=== PATIENT | female | born 1955 | race Two or more races ===

== ENCOUNTER 2025-10-09 20:48 | Inpatient (IN) | payer MEDICARE, MEDICAID, SELFPAY ==
--- NOTE | 2025-10-09 20:52 | EDNOTE_ITS ---
ED Weakness RME/HPI General Chief complaint: Weakness Stated complaint: WEAKNESS Time Seen by Provider: 10/09/25 21:03 Arrival date/time: 10/09/25 20:48 RME / HPI RME / HPI Narrative: See MDM for Dr. See's HPI documentation. Related Data Home Medications ?Medication ?Instructions ?Recorded ?Confirmed Unobtainable 08/14/18 08/14/18 Allergies Allergy/AdvReac Type Severity Reaction Status Date / Time No Known Allergies Allergy Verified 10/09/25 20:54 Review of Systems Review of Systems Systems Reviewed: All systems reviewed, normal except as documented ED Exam Narrative Physical exam: See MDM for Dr. See's physical exam documentation. Course Course Course Narrative: CXR is ordered for determining the etiology of weakness. Quality Measures none Orders Category Date Time Status COVID-19 Screening Questionnaire NOW Care 10/09/25 22:31 Active COVID-19 Screening Questionnaire NOW Care 10/09/25 23:18 Active Decision to Admit X1 Care 10/09/25 23:18 Completed EKG (ED ONLY) *Do not use* NOW Care 10/09/25 21:02 Completed Mckenzie [Urinary Catheter] QS Care 10/09/25 21:11 Active Saline [Insert IV] NOW Care 10/09/25 21:02 Active Straight [In and Out Catheter] X1 Care 10/09/25 21:[address] chest abdomen pelvis wo Stat Exams 10/09/25 21:[address] head/brain wo con Stat Exams 10/09/25 21:02 Completed EKG (ED Only) Stat Exams 10/09/25 21:02 Draft XR chest 1V portable Stat Exams 10/09/25 21:03 Completed Alcohol, Blood Medical Stat Lab 10/09/25 21:10 Completed Ammonia Stat Lab 10/09/25 21:10 Completed BNP [B-Type Natriuretic Peptide] Stat Lab 10/09/25 21:10 Completed Beta Hydroxybutyrate Stat Lab 10/09/25 21:10 Completed Bilirubin,Direct Stat Lab 10/09/25 21:10 Completed Blood Culture (Lab) Stat Lab 10/09/25 21:10 Received CBC Stat Lab 10/09/25 21:10 Completed CMP [Comprehensive Metabolic Panel] Stat Lab 10/09/25 21:10 Completed CRP [C-Reactive Protein] Stat Lab 10/09/25 21:10 Completed Drug Screen,Urine Stat Lab 10/09/25 21:10 Completed ESR [Sed Rate (ESR)] Stat Lab 10/09/25 21:10 Completed Free T3 Stat Lab 10/09/25 21:10 Completed Free T4 (Free Thyroxine) Stat Lab 10/09/25 21:10 Completed Hemoglobin A1C [Glycohemoglobin w (eAG)] Stat Lab 10/09/25 21:10 Completed Lactate (Lactic Acid) Stat Lab 10/09/25 21:10 Completed Lipase Stat Lab 10/09/25 21:10 Completed Magnesium Stat Lab 10/09/25 21:10 Completed Procalcitonin Stat Lab 10/09/25 21:10 Completed TSH [Thyroid Stimulating Hormone] Stat Lab 10/09/25 21:10 Completed Troponin I Stat Lab 10/09/25 21:10 Completed UA, C/S IF [Urinalysis, C/S if Indicated] Stat Lab 10/09/25 21:10 Completed Urine Culture Stat Lab 10/09/25 21:10 Received VBG [Venous Blood Gas] Stat Lab 10/09/25 21:10 Completed Fluconazole/Ns 200 mg Ivpb [Diflucan/Ns Ivpb] Med 10/09/25 21:38 Discontinued 200 mg in 100 ml IV X1 Ondansetron Inj [Zofran Inj] Med 10/09/25 21:02 Discontinued 4 mg IVP X1 ONE Ringers Lactated 1000 ml [Lactated Ringers] 1,000 ml Med 10/09/25 21:02 Discontinued IV 1,000 mls/hr cefTRIAXone/D5w 1gm IV premix [Rocephin/D5w 1gm IV Med 10/09/25 21:38 Discontinued premix] 1 gm in 50 ml IV X1 Vital Signs Vital signs: Vital Signs Temperature 97.9 F 10/09/25 21:09 Pulse Rate 56 L 10/09/25 21:09 Respiratory Rate 18 10/09/25 21:09 Blood Pressure 134/55 H 10/09/25 21:09 Pulse Oximetry (%) 95 10/09/25 21:09 Oxygen Delivery Method Room Air 10/09/25 21:09 Weakness MDM Narrative MDM Narrative:: This section includes all my notes and documentations, including HPI, PE, and ED course. Devin See MD HPI: 70-year-old female from a local prison with decreased mental status. EMS reports lethargy since yesterday and confusion for about 6 hours. No recent fall or head injury. Patient understands why she is here. She reports no headache or dizziness. No recent illness with cough or fever. No speech or visual impairment. No right-sided weakness or left-sided weakness. No chest pain or shortness of breath. No other complaints. ROS: All negative except as documented in HPI. Physical Exam: General: Lethargic and oriented X 2 (negative dates).? No acute distress.?? Eyes:? Conjunctivae and lids clear.? EOMI.? PERRL. ENT:? No nasal congestion.? Pharynx normal.? Tympanic membrane normal bilaterally.??? Neck:? Supple.? No carotid bruit.? No JVD.?? Heart: RRR. Lungs:? No respiratory distress.? Good air movement.? No rhonchi, wheezing, rales.?? Chest:? No tenderness. Abdomen:? Soft and nontender.? Normal bowel sounds.? No distension.? No rebound or guarding.?? Back:? No CVA tenderness.?? Legs:? No clubbing, cyanosis, edema.? Skin:? Warm and dry.?? Neuro:? Cranial Nerves II-XII grossly intact.? No peripheral motor deficits. Musculoskeletal:? All major joints and bones are not tender with no limited ROM.? I reviewed EMS and prison notes. I reviewed all diagnostic test results. My interpretation of the EKG is possible atrial fibrillation (54 bpm) with nonspecific ST-T changes. My interpretation of the chest x-ray is increased vascular congestion. My review of the CT head report is NAD. My review of the CT chest abdomen pelvis report is vascular congestion and cirrhosis and ascites. Blood tests remarkable for Ammonia 85, BNP 191, TSH 13.79. UA showed positive leukocyte esterase, 1347 RBC, 131 WBC, and yeast. At this point, diagnoses include: AMS Hepatic encephalopathy UTI Hypothyroidism CHF Cirrhosis Ascites Treatment here included: IVF Zofran 4 mg IV Rocephin 1 g IV Diflucan 200 mg IV Patient remained stable. I discussed the case with our hospitalist. About the presentation and exam and diagnostics and treatments here. And need of further care in the hospital. Will accept the patient. Devin See MD Patient data External records reviewed:: [facility] [place] previous records, EMS form and Prison records Clinical information provided by:: patient and EMS Social determinants that could affect healthcare access:: housing (SNF resident) Patient has the following chronic illnesses:: seizures, GERD, HTN, cirrhosis How is presenting disease/condition affected by chronic disease/condition?: uneffected by Evaluation data The following diagnostics were reviewed and interpreted by me:: lab results, radiology exam(s) and EKG tracing(s) (My interpretation of the EKG is: Possible atrial fibrillation (54 bpm) with nonspecific ST-T changes. Devin See MD) Lab and/or radiology exams considered but not ordered:: none Interpretation Summary: I reviewed all diagnostic test results. My interpretation of the EKG is possible atrial fibrillation (54 bpm) with nonspecific ST-T changes. My interpretation of the chest x-ray is increased vascular congestion. My review of the CT head report is NAD. My review of the CT chest abdomen pelvis report is vascular congestion and cirrhosis and ascites. Blood tests remarkable for Ammonia 85, BNP 191, TSH 13.79. UA showed positive leukocyte esterase, 1347 RBC, 131 WBC, and yeast. Medications / Prescriptions Medications or Prescriptions considered but not ordered:: none Medication administrations:: Medication Administration History Acetaminophen (Acetaminophen 325 Mg Tablet) 650 mg PO Q6H PRN PRN Reason: Fever >101.5 or pain 1-3 Stop: 11/08/25 23:36 Ceftriaxone Sodium/Dextrose (Rocephin/D5w 1gm Iv Premix) 1 gm in 50 mls @ 100 mls/hr IV QDAY RASHEED Stop: 10/17/25 08:59 Lactated Ringer's (Lactated Ringers) 1,000 mls @ 100 mls/hr IV .Q10H ONE Stop: 10/10/25 09:48 Last Admin: 10/10/25 00:32 Dose: 100 mls/hr Documented By: TACO Lacosamide (Lacosamide Inj 200 Mg/20 Ml Vial) 100 mg IVP BID [facility] Stop: 11/09/25 08:59 Lactulose (Lactulose Syrup 20 Gm/30 Ml Udc) 15 gm PO TID RASHEED; Protocol Stop: 11/09/25 05:59 Levetiracetam (Levetiracetam Inj 100 Mg/Ml Vial 5ml) 1,000 mg IVP Q12HR [facility] Stop: 11/09/25 08:59 Levothyroxine Sodium (Levothyroxine Sodium 100 Mcg Tablet) 100 mcg PO ACBR RASHEED Stop: 11/09/25 05:59 Midodrine (Midodrine 5 Mg Tablet) 10 mg PO TID [facility] Stop: 11/09/25 05:59 Ondansetron HCl (Ondansetron Inj 2 Mg/Ml Inj 2 Ml) 4 mg IVP Q6H PRN; Protocol PRN Reason: NAUSEA OR VOMITING Stop: 11/08/25 23:36 Pantoprazole Sodium (Pantoprazole Inj 40 Mg Vial) 40 mg IVP QDAY [facility] Stop: 11/09/25 08:59 Rifaximin (Rifaximin 550 Mg Tablet) 550 mg PO BID [facility] Stop: 10/17/25 08:59 Discontinued Medications Lactated Ringer's (Lactated Ringers) 1,000 mls @ 1,000 mls/hr IV .Q1H ONE Stop: 10/09/25 22:01 Last Infusion: 10/09/25 22:50 Dose: Infused Documented By: Admin: 10/09/25 21:20 Dose: 1,000 mls/hr Documented By: KELLY Ceftriaxone Sodium/Dextrose (Rocephin/D5w 1gm Iv Premix) 1 gm in 50 mls @ 100 mls/hr IV X1 ONE Stop: 10/09/25 22:07 Last Infusion: 10/09/25 22:50 Dose: Infused Documented By: Admin: 10/09/25 22:04 Dose: 100 mls/hr Documented By: KELLY Fluconazole (Diflucan/Ns Ivpb) 200 mg in 100 mls @ 100 mls/hr IV X1 ONE Stop: 10/09/25 22:37 Last Infusion: 10/10/25 00:53 Dose: Infused Documented By: Admin: 10/09/25 23:11 Dose: 100 mls/hr Documented By: KELLY Ceftriaxone Sodium/Dextrose (Rocephin/D5w 1gm Iv Premix) 1 gm in 50 mls @ 100 mls/hr IV QDAY [facility] Stop: 10/16/25 23:42 Last Admin: 10/10/25 00:03 Dose: Not Given Documented By: CB Non-Admin Reason: Cancelled by Provider Ondansetron HCl (Ondansetron Inj 2 Mg/Ml Inj 2 Ml) 4 mg IVP X1 ONE; Protocol Stop: 10/09/25 21:03 Last Admin: 10/09/25 21:20 Dose: 4 mg Documented By: KELLY Treatment here FROM ME included: IVF Zofran 4 mg IV Rocephin 1 g IV Diflucan 200 mg IV Consultations Consultation(s) initiated? (list below): Yes Consultation #1 (Physician, Specialty, Details): I discussed the case with our hospitalist. About the presentation and exam and diagnostics and treatments here. And need of further care in the hospital. Will accept the patient. Diagnosis Weakness Differential Diagnosis: acute myocardial infarction, anemia, hypoglycemia, hypothyroidism, rhabdomyolysis, sepsis and dehydration Most likely diagnosis given after review of the tests above:: AMS Hepatic encephalopathy UTI Hypothyroidism CHF Cirrhosis Ascites Admission Indicated Admission indicated?: indicated Explain why admission is indicated or not indicated:: AMS Hepatic encephalopathy UTI Hypothyroidism CHF Cirrhosis Ascites Admission Request Was there a request for admission?: Yes Admission Attestation Admission request attestation: Discussed case with Hospitalist service regarding admission. Discussed patients ED course, exam findings, labs, and radiology results. Agreed to accept the patient for admission. Disposition Plan Disposition Plan: Admit Discharge Plan Plan Patient Disposition: Admit Acute Care w/in Hospital Problem List Clinical Impression: AMS (altered mental status), UTI (urinary tract infection), Hypothyroidism, Hepatic encephalopathy, CHF (congestive heart failure), Cirrhosis, Ascites
[2025-10-09 20:54] VITALS: PULSE 57; RESP 16; O2SAT 100; BMI 25.6
--- NOTE | 2025-10-09 21:02 | EKG_ITS ---
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1955 Requested By: Devin Cash Order Number: [id number] Reading MD: Dvein Cash Measurements Intervals [place] Rate: 54 P: [place]: QRS: -55 QRSD: 158 T: 12 QT: 502 QTc: 478 Interpretive Statements ATRIAL FIBRILLATION WITH SLOW VENTRICULAR RESPONSE RIGHT BUNDLE BRANCH BLOCK [120+ ms QRS DURATION, UPRIGHT V1, 40+ ms S IN I/aVL/V4/V5/V6] LEFT ANTERIOR FASCICULAR BLOCK [QRS AXIS <= -45, QR IN I, RS IN II] MODERATE VOLTAGE CRITERIA FOR LVH, CONSIDER NORMAL VARIANT [MEETS CRITERIA IN ONE OF: R(aVL), S(V1), R(V5), R(V5/V6)+S(V1)] ANTERIOR MYOCARDIAL INFARCTION , PROBABLY RECENT [40+ ms Q WAVE AND/OR ST/T ABNORMALITY IN V3/V4] ACUTE [place] No previous ECG available for comparison /store/S0/[id number]/ecg/[id number].pdf
--- NOTE | 2025-10-09 21:02 | XR_ITS ---
Examination: CT brain head without contrast. 2-D sagittal coronal reconstructions Date and time of exam: October 09, 2025, 2148 hours INDICATIONS: Altered mental status today CTDI: vol (mGy): 45.8 DLP: (mGycm): 896 Technique: Multiple CT axial sections of the brain have been obtained, 5 mm slice thickness. Contrast has not been administered. 2-D sagittal, coronal reconstructions have been obtained Low dose protocols were performed. One or more of the following dose reduction techniques were used; automated exposure control, adjustment of the mA and/or KV according to patient size, use of iterative reconstruction technique. Findings: No significant ventricular enlargement. Intra-axial or extra-axial hemorrhage density is not seen. No mass effect or midline shift Basal cisterns are not remarkable. Fourth ventricle is midline. Cranial vault intact. 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
--- NOTE | 2025-10-09 21:03 | XR_ITS ---
EXAMINATION: AP chest single view TECHNIQUE: AP portable upright chest single view Date and time: October 09, 2025, 2117 hours INDICATIONS: Shortness of breath today. FINDINGS: Normal heart size Prominent vascular congestion No lobar pneumonia The osseous structures are intact IMPRESSION: Prominent vascular congestion, clinical correlation advised
[2025-10-09 21:09] VITALS: BP 134/55; PULSE 56; RESP 18; TEMP 36.6; O2SAT 95
[2025-10-09 21:19] LABS: Collection Type, Urine Clean Catch; Squamous Epithelial Cell,Urine 0 /hpf (0-5)
[2025-10-09] MEDS: RINGERS LACTATED 1000 ML 1,000 ML IV (21:20)
[2025-10-09] MEDS: ONDANSETRON INJ 2 MG/ML INJ 2 ML 4 MG IVP (21:20)
[2025-10-09 21:23] LABS: Base Excess, Venous -4 (-3-3); O2 Saturation, Venous 81 % (96-97); PCO2, Venous 40 mmHg (36-56); PO2, Venous 49 mmHg (15-58); pH, Venous 7.34 (7.33-7.66)
[2025-10-09 21:26] LABS: Beta Hydroxybutyrate 0.1 mmol/L (<0.6); Sed Rate (ESR) 6 mm/hr (0-30)
[2025-10-09 21:30] LABS: Basophils # (Auto) 0.0 Thou/mm3 (0.0-0.2); Basophils % (Auto) 1 % (0-2.5); Eosinophils # (Auto) 0.1 Thou/mm3 (0.0-0.5); Eosinophils % (Auto) 2 % (0-10); Hematocrit 28.7 % (36.0-46.0); Hemoglobin 9.8 g/dL (12.0-16.0); Immature Granulocytes Auto 0.01 Thou/mm3 (0.00-0.00); Lymphocytes # (Auto) 1.0 Thou/mm3 (1.0-4.8); Lymphocytes % (Auto) 30 % (10-50); Mean Corpuscular HGB Conc 34.1 g/dl (31.0-37.0); Mean Corpuscular Hemoglobin 30.2 pg (25.0-35.0); Mean Corpuscular Volume 89 fL (80-100); Monocytes # (Auto) 0.4 Thou/mm3 (0.0-0.8); Monocytes % (Auto) 10 % (0-12); Neutrophils # (Auto) 2.0 Thou/mm3 (1.8-7.7); Neutrophils % (Auto) 58 % (37-80); Nucleated Red Blood Cell # 0.00 Thou/mm3 (0.00-0.00); Nucleated Red Blood Cell % 0 /100 WBC (0); RDW Standard Deviation 67.4 fL (36.4-46.3); Red Blood Count 3.24 Miln/mm3 (4.00-5.20); White Blood Count 3.5 Thou/mm3 (3.6-11.0)
[2025-10-09 21:32] LABS: Bilirubin,Urine Negative (Negative); Blood,Urine 3+ (Negative); Budding Yeast,Urine Present; Clarity,Urine Turbid (Clear/Hazy); Glucose, Urine Negative (Negative); Ketones,Urine Negative (Negative); Leukocyte Esterase,Urine Positive (Negative); Nitrite,Urine Negative (Negative); PH,Urine 6.5 (5.0-7.0); Platelet Count 73 Thou/mm3 (140-440); Protein,Urine 1+ (Neg - Trace); RBC,Urine 1347 /hpf (0-3); Specific Gravity,Urine 1.022 (1.001-1.035); Urobilinogen,Urine Negative mg/dL (0.0-1.0); WBC,Urine 131 /hpf (0-5)
[2025-10-09 21:33] LABS: Color,Urine Lt-Orange (Lt Yel-Yel); Culture Indicated,Urine Yes; Slide Review Platelets confirmed
--- NOTE | 2025-10-09 21:34 | XR_ITS ---
Examination: CT chest, without intravenous contrast. CT abdomen, without intravenous contrast. CT pelvis, without intravenous contrast. 2-D sagittal and coronal reconstructions. 3-D reconstructions. Date and time of exam: October 09, 2025, 2149 hours INDICATIONS: Chest pain shortness of breath hematuria beginning 1 week ago CTDI vol (mgy) 9.97 DLP (MGycm) 741 Technique: Multiple CT images, 3.0 mm slice thickness, obtained chest, abdomen, pelvis, with the high-resolution 64 slice scanner.. Sagittal and coronal 2-D reconstructions are obtained. 3-D reconstructions Low dose protocols were performed. One or more of the following dose reduction techniques were used; automated exposure control, adjustment of the mA and/or KV according to patient size, use of iterative reconstruction technique. Findings: No thoracic aortic aneurysmal dilatation Main pulmonary artery segment is enlarged 42 mm Heavy calcification left main and left anterior descending and left circumflex coronary arteries Mild to moderate enlargement cardiac contour with significant vascular congestion No mediastinal lymphadenopathy COPD with multiple areas of airspace destruction including bleb like areas at the lung bases No lobar pneumonia or pulmonary edema Cirrhosis, liver nodular in contour with prominent splenomegaly Portosystemic stent No pancreatic mass Normal adrenal glands Moderate ascites No hydronephrosis Heavy abdominal aortic calcification no aneurysmal dilatation Normal appendix Colonic diverticulosis Atrophic uterus Urinary bladder contracted around a Mckenzie catheter, bladder wall thickened Severe osteopenia IMPRESSION: Significant vascular congestion Heavy calcification left main and left anterior descending left circumflex coronary arteries Pulmonary artery hypertension COPD with bleb like areas at the lung bases Cirrhosis Prominent splenomegaly Moderate ascites No renal or ureteral calculi Thickening of the bladder wall, consider cystitis, early bladder carcinoma not excluded, clinical correlation and follow-up recommended Normal appendix Colonic diverticulosis
[2025-10-09 21:40] LABS: Ammonia 85 uMol/L (11-32)
[2025-10-09 21:49] LABS: Alanine Aminotransferase 22 U/L (10-49); Albumin, Serum 2.7 gm/dL (3.4-4.8); Albumin/Globulin Ratio 0.8 (1.2-2.2); Alcohol, Blood Medical < 3.0 mg/dL (0-10.0); Alkaline Phosphatase 101 U/L (46-116); Anion Gap 7 (7-16); Aspartate Amino Transferase 47 U/L (0-34); BUN/Creatinine Ratio 13 Ratio (12-20); Bilirubin,Direct 1.0 mg/dL (0.0-0.3); Bilirubin,Total 2.1 mg/dL (0.3-1.2); Blood Urea Nitrogen 14 mg/dL (9-23); Calcium 8.5 mg/dL (8.3-10.6); Calcium (Corrected) 9.5 mg/dL (8.5-10.1); Carbon Dioxide 21.1 mMol/L (20.0-31.0); Chloride 113 mMol/L (98-107); Creatinine (Component) 1.1 mg/dL (0.6-1.3); Estimated Creatinine Clearance 42.9 mL/min (>60); Globulin 3.5 gm/dL (2.3-3.5); Glucose 127 mg/dL (74-106); Lipase 117 U/L (12-53); Magnesium 1.9 mg/dL (1.6-2.6); Osmolality,Calculated 283 (275-295); Potassium 4.5 mMol/L (3.4-5.1); Procalcitonin 0.08 ng/ml (0.0-0.49); Sodium 141 mMol/L (136-145); Thyroid Stimulating Hormone 13.79 uIU/mL (0.55-4.78); Total Protein 6.2 gm/dL (5.7-8.2); Troponin I < 0.020 ng/mL (0.0-0.045); eGFR 55 See Note
[2025-10-09 21:54] LABS: B-Type Natriuretic Peptide 191 pg/mL (0-100)
[2025-10-09 21:58] LABS: Amphetamine/Methamp Scrn,U Negative (Negative); Barbiturate Screen,Urine Negative (Negative); Benzodiazepines Screen,Urine Negative (Negative); Benzoylecgonine Screen, Ur Negative (Negative); Fentanyl Screen,Urine Negative (Negative); Opiate Screen,Urine Negative (Negative); THC Screen,Urine Negative (Negative)
[2025-10-09] MEDS: cefTRIAXone/D5w 1gm IV premix 1 GM/50 ML BAG IV (22:04)
[2025-10-09 22:07] LABS: C-Reactive Protein < 0.5 mg/dL (0.0-0.9)
[2025-10-09 23:11] LABS: Glucose Estimated Average 91 mg/dL (80-131); Hemoglobin A1C 4.8 % Hgb (4.8-6.0)
[2025-10-09] MEDS: FLUCONAZOLE/NS 200 MG IVPB 200 MG/100 ML BAG 100 MG IV (23:11)
[2025-10-09 23:21] LABS: Lactate (Lactic Acid) 2.6 mMol/L (0.4-2.0)
[2025-10-09 23:29] LABS: Free T3 0.9 pg/mL (2.3-4.2); Free T4 (Free Thyroxine) 0.50 ng/dL (0.89-1.76)
--- NOTE | 2025-10-09 23:56 | ESHP_ITS ---
Documentation for date of: 10/09/25 HPI History of Present Illness Chief complaint: Altered mental status History of present illness: This patient is a 70-year-old female with a history of iron deficiency anemia, hypertension, seizures, cirrhosis, GERD, and hypothyroidism who presented to [facility] ED from [facility] for altered mental status. The patient was admitted for management of acute encephalopathy. According to the patient, she had been feeling off for about 2 days, but this was mostly with just generalized weakness. From EMS report, the patient was noted to be less interactive and eating less at her fci, which concerned the staff at the nursing facility as she is normally much more interactive. Upon examination of the patient, the patient is only oriented to person, did not know the date/month/year, and believes that she was still at [facility]. The patient herself only feels weak and does not really know why she is in the hospital right now. The patient was able to answer all questions appropriately, albeit her response time was a bit slow. The patient does not believe that she has had any recent medication changes or any significant events that she believes could be tied to why she feels this generalized weakness. 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 ED course: Initial vitals significant for blood pressure of 134/55 and heart rate of 56. Initial labs significant for WBC 3.5, hemoglobin 9.8, platelets 73, AST 47, ALT 22, ammonia 85, and urinalysis shows 131 WBC, 1347 RBC, and leukocyte esterase positive. CT head negative for acute abnormalities, small old appearing infarct in the left cerebral hemisphere CT chest/abdomen/pelvis positive for cirrhosis, prominent hepatomegaly, moderate ascites, colonic diverticulosis and thickening of the bladder wall Past Surgical History: Patient denies Allergies (w/ Reactions): NKDA Family History: Noncontributory Alcohol Intake: Patient denies Tobacco/Vape Use: Patient denies Other Drug Use: Patient denies Recent Travel History: Patient denies Recent sick contacts: Patient denies Review of Systems Review of Systems Systems Reviewed: All systems reviewed, normal except as documented Exam Vital Signs Temp Pulse Resp BP Pulse Ox O2 Del Method 97.9 F 56 L 18 134/55 H 95 Room Air 10/09/25 21:09 10/09/25 21:09 10/09/25 21:09 10/09/25 21:09 10/09/25 21:09 10/09/25 21:09 Narrative Exam Physical Exam: General: Alert, no acute distress. Speech slow. Skin: Warm, cool, intact. Head: Normocephalic, atraumatic. Eye: Normal conjunctiva, PERRL. Throat: Oral mucosa dry. No obvious lesions in oropharynx. Cardiovascular: Regular rate and rhythm, no murmur, +S1/S2. Respiratory: Lungs are clear to auscultation, respirations unlabored, no crackles, no wheezing. Gastrointestinal: Soft, nontender, distended. No guarding or rebound tenderness. Extremities: No edema, no cyanosis, no clubbing. 2+ radial pulse bilaterally, 2+ pedal pulse bilaterally. Neuro: No focal deficits observed. Conversant, moving all extremities. No overt cerebellar signs/incoordination. Psychiatric: Cooperative, appropriate affect. Results: Labs 10/11/25 05:06 10/11/25 05:06 Labs: Short CBC 10/09/25 Range/Units 21:10 WBC 3.5 L (3.6-11.0) Thou/mm3 Hgb 9.8 L (12.0-16.0) g/dL Hct 28.7 L (36.0-46.0) % Plt Count 73 L (140-440) Thou/mm3 BMP 10/09/25 21:10 Sodium 141 Potassium 4.5 Chloride 113 H Carbon Dioxide 21.1 BUN 14 Creatinine 1.1 Glucose 127 H Calcium 8.5 Cardiac Enzymes 10/09/25 Range/Units 21:10 Troponin I < 0.020 (0.0-0.045) ng/mL Liver Function 10/09/25 Range/Units 21:10 Total Bilirubin 2.1 H (0.3-1.2) mg/dL Direct Bilirubin 1.0 H (0.0-0.3) mg/dL AST 47 H (0-34) U/L ALT 22 (10-49) U/L Alkaline Phosphatase 101 (46-116) U/L Albumin 2.7 L (3.4-4.8) gm/dL Urine 10/09/25 Range/Units 21:10 Urine Color Lt-[place] A (Lt Yel-Yel) Urine Clarity Turbid A (Clear/Hazy) Urine pH 6.5 (5.0-7.0) Ur Specific [place] 1.022 (1.001-1.035) Urine Protein 1+ A (Neg - Trace) Urine Glucose (UA) Negative (Negative) ABG Interpretation ABG results: 10/09/25 21:10 VBG pH 7.34 VBG pCO2 40 VBG pO2 49 VBG Base Excess -4 L Quality Measures Quality Measures VTE prophylaxis Advance care planning discussed with:: patient Medications Home Medications and Allergies Home Medications ?Medication ?Instructions ?Recorded ?Confirmed ?Type bisacodyl 10 mg rectal suppository 10 mg [place] QDAY PRN c onstipation 10/10/25 10/10/25 History (Dulcolax (bisacodyl)) furosemide 20 mg tablet (Lasix) 20 mg PO .COMPLEX 09/2910/10/25 History lacosamide 100 mg tablet 100 mg PO BID 10/10/2510/10 History lactulose 10 gram/15 mL oral 10 g PO BID 10/10/2509/29 History solution levetiracetam 1,000 mg tablet 1,000 mg PO BID 10/10/25 10/10/25 History (Keppra) levothyroxine 75 mcg capsule 75 mcg PO QDAY 10/10/25 1 12/11/24 History magnesium hydroxide 400 mg/5 mL 400 mg PO .COMPLEX PRN constipation 10/10/25 10/10/25 History oral suspension (Milk of Magnesia) midodrine 10 mg tablet 10 mg PO TID 10/10/25 History pantoprazole 40 mg tablet,delayed 40 mg PO QDAY 10/10/25 History release (Protonix) pramipexole 0.5 mg tablet 0.5 mg PO QDAY 10/10/2509/29 History rifaximin 550 mg tablet 550 mg PO BID 10/10/2510/10 History sodium phosphates See Rx Instructions [place] .COMP ELDON 10/10/25 10/10/25 History PRN constipation Allergies Allergy/AdvReac Type Severity Reaction Status Date / Time No Known Allergies Allergy Verified 10/09/25 20:54 Visit Medications Acetaminophen (Acetaminophen 325 Mg Tablet) 650 mg PO Q6H PRN PRN Reason: Fever >101.5 or pain 1-3 Stop: 11/08/25 23:36 Ceftriaxone Sodium/Dextrose (Rocephin/D5w 1gm Iv Premix) 1 gm in 50 mls @ 100 mls/hr IV QDAY FOR[facility]LY [facility], 1928[facility]1983 Stop: 10/17/25 08:59 Lactated Ringer's (Lactated Ringers) 1,000 mls @ 100 mls/hr IV .Q10H ONE Stop: 10/10/25 09:48 Lacosamide (Lacosamide Inj 200 Mg/20 Ml Vial) 100 mg IVP BID FOR[facility]LY [facility], 1928–1983 Stop: 11/09/25 08:59 Lactulose (Lactulose Syrup 20 Gm/30 Ml Udc) 15 gm PO TID FOR[facility]LY [facility], [facility]1983; Protocol Stop: 11/09/25 05:59 Levetiracetam (Levetiracetam Inj 100 Mg/Ml Vial 5ml) 1,000 mg IVP Q12HR FOR[facility], 1928–1983 Stop: 11/09/25 08:59 Levothyroxine Sodium (Levothyroxine Sodium 100 Mcg Tablet) 100 mcg PO ACBR FOR[facility]LY [facility], 1928[facility]1983 Stop: 11/09/25 05:59 Midodrine (Midodrine 5 Mg Tablet) 10 mg PO TID [facility], 1928[facility]1983 Stop: 11/09/25 05:59 Ondansetron HCl (Ondansetron Inj 2 Mg/Ml Inj 2 Ml) 4 mg IVP Q6H PRN; Protocol PRN Reason: NAUSEA OR VOMITING Stop: 11/08/25 23:36 Pantoprazole Sodium (Pantoprazole Inj 40 Mg Vial) 40 mg IVP QDAY [facility], [facility]1983 Stop: 11/09/25 08:59 Rifaximin (Rifaximin 550 Mg Tablet) 550 mg PO BID [facility], [facility]1983 Stop: 10/17/25 08:59 Discontinued Medications Lactated Ringer's (Lactated Ringers) 1,000 mls @ 1,000 mls/hr IV .Q1H ONE Stop: 10/09/25 22:01 Last Infusion: 10/09/25 22:50 Dose: Infused Ceftriaxone Sodium/Dextrose (Rocephin/D5w 1gm Iv Premix) 1 gm in 50 mls @ 100 mls/hr IV X1 ONE Stop: 10/09/25 22:07 Last Infusion: 10/09/25 22:50 Dose: Infused Fluconazole (Diflucan/Ns Ivpb) 200 mg in 100 mls @ 100 mls/hr IV X1 ONE Stop: 10/09/25 22:37 Last Admin: 10/09/25 23:11 Dose: 100 mls/hr Ceftriaxone Sodium/Dextrose (Rocephin/D5w 1gm Iv Premix) 1 gm in 50 mls @ 100 mls/hr IV QDAY RASHEED Stop: 10/16/25 23:42 Ondansetron HCl (Ondansetron Inj 2 Mg/Ml Inj 2 Ml) 4 mg IVP X1 ONE; Protocol Stop: 10/09/25 21:03 Last Admin: 10/09/25 21:20 Dose: 4 mg Assessment & Plan Plan This patient is a 70-year-old female with a history of iron deficiency anemia, hypertension, seizures, cirrhosis, GERD, and hypothyroidism who presented to [facility] ED from [facility] for altered mental status. The patient was admitted for management of acute encephalopathy. 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 ED with altered mental status that started about 2 days ago. Patient is normally able to interactive and was found to not be as interactive, more lethargic, and not eating as much. 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 Patient may be suffering from acute encephalopathy secondary to a urinary tract infection with possible component of hepatic encephalopathy, however the patient has been lactulose and rifaximin at her nursing facility. Diagnostic: Urinalysis positive for 131 WBC, 1347 RBC, and leukocyte esterase positive CT head 10/09 negative for acute abnormalities, small old appearing infarct in the left cerebral hemisphere CT chest/abdomen/pelvis 10/09 positive for cirrhosis, prominent hepatomegaly, moderate ascites, colonic diverticulosis and thickening of the bladder wall On admission, AST noted to be 47, ALT 22, and bilirubin 2.1 Ammonia on admission 85 Blood cultures collected 10/09, pending Urine culture collected 10/09, pending Treatment: Ceftriaxone 1 g daily (10/09?) Lactulose 15 g 3 times daily, titrate to achieve 2-3 bowel movements daily Rifaximin 550 mg twice daily Midodrine 10 mg 3 times daily, hold if SBP greater than 100 Acute hepatitis panel ordered, pending Strict ins and outs Consider paracentesis for peritoneal fluid analysis if patient condition does not improve with appropriate antibiotics #History of seizures Patient does have history of seizures for which she takes Keppra and lacosamide for. Treatment: Resumed home Keppra 1 g twice daily and lacosamide 100 mg twice daily Neurochecks every 4 hours Seizure precautions #Lactic acidosis Likely secondary to the patient's active urinary tract infection and poor clearance due to liver cirrhosis. Treatment: IV fluid resuscitation Will continue to monitor lactic acid until downtrend to within normal limits #Hypothyroidism Patient does have history of hypothyroidism for which she takes levothyroxine 75 mcg daily for management outpatient. Diagnostic: TSH on admission 13.79 with free T4 0.5 And free T3 0.9 Treatment: Started patient on levothyroxine 100 mcg ACBR Patient to follow-up outpatient #Pancytopenia #Iron deficiency anemia Patient noted to have hemoglobin of 9.8, WBC of 3.5, and platelet of 73 on admission. Possibly secondary to her Keppra and lacosamide as that has been shown to be associated with pancytopenia. Treatment: Patient to follow-up outpatient #Colonic diverticulosis As noted on CT chest/abdomen/pelvis 10/09 #History of GERD Resumed home Protonix 40 mg daily DVT Prophylaxis: SCDs GI Prophylaxis: Protonix Bowel: Lactulose Diet: Low sodium Mckenzie: Yes Lines: PIV Antibiotics: Ceftriaxone Code Status: DNR Reason for Hospitalization: Acute encephalopathy Other Barriers to Discharge: UTI Patient plan of care was discussed with attending physician Dr. Ankit Lim, PGY1 Attending Provider Attestation/Addendum After examination of the patient and review of the clinical data I feel that this patient needs admission to the hospital for further treatment/evaluation. Plan of care discussed with patient and is in agreement. I Griffin Pham MD, attest that I was physically present for jaffe portions of evaluation, and examined patient, labs and imagings and plan of care were discussed with IM residents team, and I agree with the findings and plans documented above.
[2025-10-10] VITALS (12 sets, daily range): BP systolic 100–134; BP diastolic 43–57; PULSE 53–89; RESP 16–99; TEMP 36.2–36.7; O2SAT 98–100; BMI 24.7
[2025-10-10 00:15] LABS: Reflex Lactate? Y
[2025-10-10] MEDS: RINGERS LACTATED 1000 ML 1,000 ML 100 ML IV (00:32)
[2025-10-10 01:20] LABS: Lactate (Lactic Acid) 2.7 mMol/L (0.4-2.0)
[2025-10-10 04:15] LABS: Lactate (Lactic Acid) 1.5 mMol/L (0.4-2.0)
[2025-10-10 04:19] LABS: Reflex Lactate? Y
[2025-10-10 04:39] LABS: Lactic Acid, 3 HR 1.6 mMol/L (0.4-2.0)
[2025-10-10 04:49] LABS: Basophils # (Auto) 0.0 Thou/mm3 (0.0-0.2); Basophils % (Auto) 1 % (0-2.5); Eosinophils # (Auto) 0.1 Thou/mm3 (0.0-0.5); Eosinophils % (Auto) 2 % (0-10); Hematocrit 26.6 % (36.0-46.0); Hemoglobin 8.9 g/dL (12.0-16.0); Immature Granulocytes Auto 0.00 Thou/mm3 (0.00-0.00); Lymphocytes # (Auto) 1.0 Thou/mm3 (1.0-4.8); Lymphocytes % (Auto) 31 % (10-50); Mean Corpuscular HGB Conc 33.5 g/dl (31.0-37.0); Mean Corpuscular Hemoglobin 30.4 pg (25.0-35.0); Mean Corpuscular Volume 91 fL (80-100); Monocytes # (Auto) 0.3 Thou/mm3 (0.0-0.8); Monocytes % (Auto) 9 % (0-12); Neutrophils # (Auto) 1.8 Thou/mm3 (1.8-7.7); Neutrophils % (Auto) 58 % (37-80); Nucleated Red Blood Cell # 0.00 Thou/mm3 (0.00-0.00); Nucleated Red Blood Cell % 0 /100 WBC (0); Platelet Count 64 Thou/mm3 (140-440); RDW Standard Deviation 70.0 fL (36.4-46.3); Red Blood Count 2.93 Miln/mm3 (4.00-5.20); White Blood Count 3.2 Thou/mm3 (3.6-11.0)
[2025-10-10 05:03] LABS: INR 1.2 (0.9-1.3); Partial Thromboplastin Time 23.4 Seconds (22.0-36.0); Prothrombin Time 12.4 Seconds (9.0-12.2)
[2025-10-10 05:31] LABS: Slide Review Platelets confirmed
[2025-10-10] MEDS: LEVOTHYROXINE SODIUM 100 MCG TABLET PO (05:37)
[2025-10-10] MEDS: LACTULOSE SYRUP 20 GM/30 ML UDC 15 GM PO ×3 (05:39→21:32)
[2025-10-10 05:44] LABS: Alanine Aminotransferase 20 U/L (10-49); Albumin, Serum 2.6 gm/dL (3.4-4.8); Albumin/Globulin Ratio 0.8 (1.2-2.2); Alkaline Phosphatase 101 U/L (46-116); Anion Gap 8 (7-16); Aspartate Amino Transferase 41 U/L (0-34); BUN/Creatinine Ratio 14 Ratio (12-20); Bilirubin,Total 1.5 mg/dL (0.3-1.2); Blood Urea Nitrogen 15 mg/dL (9-23); Calcium 8.2 mg/dL (8.3-10.6); Calcium (Corrected) 9.3 mg/dL (8.5-10.1); Carbon Dioxide 19.3 mMol/L (20.0-31.0); Chloride 115 mMol/L (98-107); Creatinine (Component) 1.1 mg/dL (0.6-1.3); Estimated Creatinine Clearance 42.3 mL/min (>60); Globulin 3.2 gm/dL (2.3-3.5); Glucose 116 mg/dL (74-106); Magnesium 1.8 mg/dL (1.6-2.6); Osmolality,Calculated 284 (275-295); Phosphorous 2.8 mg/dL (2.4-5.1); Potassium 4.4 mMol/L (3.4-5.1); Sodium 142 mMol/L (136-145); Total Protein 5.8 gm/dL (5.7-8.2); eGFR 55 See Note
[2025-10-10] MEDS: LACOSAMIDE INJ 200 MG/20 ML VIAL 100 MG IVP ×2 (09:47→20:48)
[2025-10-10] MEDS: levETIRAcetam INJ 100 MG/ML VIAL 5ML 1000 MG IVP ×2 (09:47→20:53)
[2025-10-10] MEDS: cefTRIAXone/D5w 1gm IV premix 1 GM/50 ML BAG IV (09:48)
--- NOTE | 2025-10-10 12:33 | PD.HHPROG ---
Documentation for date of: 10/10/25 Subjective - Hospitalist Subjective Interval history: Patient is a 70 years old female with past medical history of iron deficiency anemia, hypertension, seizure, cirrhosis, GERD, hypothyroidism who was admitted overnight for management of acute hepatic encephalopathy. At bedside this morning, patient appears more alert, oriented and able to answer questions appropriately. Denies any new complaints. Vital signs are stable. Lab results show hemoglobin of 8.9 from 9.8 yesterday. Chemistry panel remained stable. Bilirubin is downtrending. However, patient noted to have bloody urine in her bag, CT chest/abdomen/pelvis done yesterday shows thickening of bladder wall, early bladder carcinoma not excluded. We will obtain urology consult. Patient had 2 bowel movement, continues to be on lactulose. Noted murmur on exam, we will obtain echocardiography. Review of Systems Review of Systems Systems Reviewed: All systems reviewed, normal except as documented Exam Vital Signs Temp Pulse Resp BP Pulse Ox O2 Del Method 97.2 F 55 L 16 117/55 L 99 Room Air 10/10/25 15:45 10/10/25 21:29 10/10/25 15:45 10/10/25 21:29 10/10/25 15:45 10/10/25 15:45 Narrative GENERAL: Well built female, in no acute distress, laying comfortably on bed HEENT: Normocephalic, atraumatic, extraocular movements intact, pupils equal and reactive to light NECK: Supple, no JVD or bruits. CARDIOVASULAR: RRR, S1 and S2 heard, murmur heard all over the precordium LUNGS/CHEST: Clear to auscultation bilaterally. No rails, rhonchi, or wheezing. ABDOMEN: Soft, nontender, with normal bowel sounds. No rebound, rigidity, or guarding. EXTREMITIES: No edema, clubbing or cyanosis. No joint deformity. Able to move all limbs. SKIN: Warm and dry without rashes. NEURO: Alert, awake and oriented Cranial nerves: II through XII grossly intact. normal speech, able to answer questions and follow commands appropriately, strength and sensation normal and equal bilaterally, no focal neurological deficits PSYCHIATRIC: Normal mood and affect. Objective - Hospitalist Labs Diagram: 10/10/25 15:59 10/10/25 04:03 Labs: Laboratory Results - last 24 hr 10/09/25 10/10/2510/10/25 21:10 01:09 04:03 WBC 3.2 L RBC 2.93 L Hgb 8.9 L Hct 26.6 L MCV 91 MCH 30.4 MCHC 33.5 RDW Std Deviation 70.0 H Plt Count 64 L Neut % (Auto) 58 Lymph % (Auto) 31 [place] % (Auto) 9 Eos % (Auto) 2 Baso % (Auto) 1 Neut # (Auto) 1.8 Lymph # (Auto) 1.0 [place] # (Auto) 0.3 Eos # (Auto) 0.1 Baso # (Auto) 0.0 Immature Gran # (Auto) 0.00 Absolute Nucleated RBC 0.00 Immature Gran % 0 Nucleated RBC % 0 PT 12.4 H INR 1.2 APTT 23.4 Sodium 141 142 Potassium 4.5 4.4 Chloride 113 H 115 H Carbon Dioxide 21.1 19.3 L Anion Gap 7 8 BUN 14 15 Creatinine 1.1 1.1 Estim Creat Clear Calc 42.9 L 42.3 L eGFR 55 L 55 L BUN/Creatinine Ratio 13 14 Glucose [address] Glu mg/dL 91 Hemoglobin A1c 4.8 Calculated Osmolality 283 284 Lactic Acid 2.6 H 2.7 H Calcium 8.5 8.2 L Corrected Calcium 9.5 9.3 Phosphorus 2.8 Magnesium 1.9 1.8 Total Bilirubin 2.1 H 1.5 H D Direct Bilirubin 1.0 H AST 47 H 41 H ALT 22 20 Alkaline Phosphatase 101 101 Ammonia 85 H* Troponin I < 0.020 C-Reactive Prot, Quant < 0.5 B-Natriuretic Peptide 191 H Total Protein 6.2 5.8 Albumin 2.7 L 2.6 L Globulin 3.5 3.2 Albumin/Globulin Ratio 0.8 L 0.8 L Lipase 117 H Procalcitonin 0.08 TSH 13.79 H Free T4 0.50 L Free T3 pg/dL 0.9 L Ur Collection Type Clean Catch Urine Color Lt-[place] A Urine Clarity Turbid A Urine pH 6.5 Ur Specific [place] 1.022 Urine Protein 1+ A Urine Glucose (UA) Negative Urine Ketones Negative Urine Blood 3+ A Urine Nitrite Negative Urine Bilirubin Negative Urine Urobilinogen (Auto) Negative Ur Leukocyte Esterase Positive Urine RBC 1347 H Urine WBC 131 H Ur Squamous Epith Cells 0 Urine Bacteria None Urine Yeast (Budding) Present A Ur Culture Indicated? Yes Urine Opiates Screen Negative Urine Fentanyl Screen Negative Ur Barbiturates Screen Negative U Amphetamin/Meth Scrn Negative U Benzodiazepines Scrn Negative U Cocaine Metab Screen Negative U Marijuana (THC) Screen Negative Ethyl Alcohol < 3.0 Misc Test Result Platelets confirmed Platelets confirmed 10/10/25 10/10/25 10/10/25 04:07 04:07 15:59 WBC RBC Hgb 9.0 L Hct 26.5 L MCV MCH MCHC RDW Std Deviation Plt Count Neut % (Auto) Lymph % (Auto) [place] % (Auto) Eos % (Auto) Baso % (Auto) Neut # (Auto) Lymph # (Auto) [place] # (Auto) Eos # (Auto) Baso # (Auto) Immature Gran # (Auto) Absolute Nucleated RBC Immature Gran % Nucleated RBC % PT INR APTT Sodium Potassium Chloride Carbon Dioxide Anion Gap BUN Creatinine Estim Creat Clear Calc eGFR BUN/Creatinine Ratio Glucose Estimated Ave Glu mg/dL Hemoglobin A1c Calculated Osmolality Lactic Acid 1.5 1.6 Calcium Corrected Calcium Phosphorus Magnesium Total Bilirubin Direct Bilirubin AST ALT Alkaline Phosphatase Ammonia Troponin I C-Reactive Prot, Quant B-Natriuretic Peptide Total Protein Albumin Globulin Albumin/Globulin Ratio Lipase Procalcitonin TSH Free T4 Free T3 pg/dL Ur Collection Type Urine Color Urine Clarity Urine pH Ur Specific [place] Urine Protein Urine Glucose (UA) Urine Ketones Urine Blood Urine Nitrite Urine Bilirubin Urine Urobilinogen (Auto) Ur Leukocyte Esterase Urine RBC Urine WBC Ur Squamous Epith Cells Urine Bacteria Urine Yeast (Budding) Ur Culture Indicated? Urine Opiates Screen Urine Fentanyl Screen Ur Barbiturates Screen U Amphetamin/Meth Scrn U Benzodiazepines Scrn U Cocaine Metab Screen U Marijuana (THC) Screen Ethyl Alcohol Misc Test Result ABG Interpretation ABG results: 10/09/25 21:10 VBG pH 7.34 VBG pCO2 40 VBG pO2 49 VBG Base Excess -4 L Assessment & Plan Patient Synopsis This patient is a 70-year-old female with a history of iron deficiency anemia, hypertension, seizures, cirrhosis, GERD, and hypothyroidism who presented to [facility] ED from [facility] for altered mental status. The patient was admitted for management of acute encephalopathy. 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 Patient is normally able to interactive and was found to not be as interactive, more lethargic, and not eating as much. 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 Patient may be suffering from acute encephalopathy secondary to a urinary tract infection with possible component of hepatic encephalopathy, however the patient has been lactulose and rifaximin at her nursing facility. Diagnostic: Urinalysis positive for 131 WBC, 1347 RBC, and leukocyte esterase positive CT head 10/09 negative for acute abnormalities, small old appearing infarct in the left cerebral hemisphere CT chest/abdomen/pelvis 10/09 positive for cirrhosis, prominent hepatomegaly, moderate ascites, colonic diverticulosis and thickening of the bladder wall On admission, AST noted to be 47, ALT 22, and bilirubin 2.1 Ammonia on admission 85 Blood cultures collected 10/09, pending Urine culture collected 10/09, pending Treatment: Ceftriaxone 1 g daily (10/09?) Lactulose 15 g 3 times daily, titrate to achieve 2-3 bowel movements daily Rifaximin 550 mg twice daily Midodrine 10 mg 3 times daily, hold if SBP greater than 100 Acute hepatitis panel ordered, pending Strict ins and outs #Gross hematuria Noted to have blood in the urinary bag Did not notice any clots CT chest/abdomen/pelvis showed thickened urinary bladder We will obtain follow-up hemoglobin level We will obtain urology consult #History of seizures Patient does have history of seizures for which she takes Keppra and lacosamide for. Treatment: Resumed home Keppra 1 g twice daily and lacosamide 100 mg twice daily Neurochecks every 4 hours Seizure precautions #Lactic acidosis Likely secondary to the patient's active urinary tract infection and poor clearance due to liver cirrhosis. Treatment: IV fluid resuscitation Lactate level downtrended to normal limits #Hypothyroidism Patient does have history of hypothyroidism for which she takes levothyroxine 75 mcg daily for management outpatient. Diagnostic: TSH on admission 13.79 with free T4 0.5 And free T3 0.9 Treatment: Started patient on levothyroxine 100 mcg ACBR Patient to follow-up outpatient #Pancytopenia #Iron deficiency anemia Patient noted to have hemoglobin of 9.8, WBC of 3.5, and platelet of 73 on admission. Possibly secondary to her Keppra and lacosamide as that has been shown to be associated with pancytopenia. Treatment: Patient to follow-up outpatient #Colonic diverticulosis As noted on CT chest/abdomen/pelvis 10/09 #History of GERD Resumed home Protonix 40 mg daily DVT Prophylaxis: SCDs GI Prophylaxis: Protonix Antibiotics: Ceftriaxone Code Status: DNR Disposition: [facility] for management of hepatic encephalopathy and gross hematuria Time Spent with Patient Time: Total time spent is greater than 50% in coordination of care (as documented) at patient's floor/unit and/or counseling patient: Time with patient: Greater than 35 minutes Reason for Continued Stay Reason for continued stay: further monitoring Quality Measures Quality Measures VTE prophylaxis Advance care planning discussed with:: patient
[2025-10-10] MEDS: MIDODRINE 5 MG TABLET 10 MG PO (13:38)
--- NOTE | 2025-10-10 15:19 | PC.SS ---
SS received a call from Jennifer from [facility], pt is a resident of their facility. Pt can return upon DC.Alternate DM is her Son
--- NOTE | 2025-10-10 15:56 | ECHO_ITS ---
Patient Info Name: Ofelia Irvin Age: 70 years : 1955 Gender: Female Ht: 163 cm Wt: 65 kg BSA: 1.73 m2 BP: 100 / 43 mmHg HR: 62 bpm Exam Date: 10/10/2025 4:56 PM Admit Date: 10/09/2025 Site: [facility] Room Number: 378 Patient Status: I Exam Type: CA echo doppler complete Aircraft Maintenance Director: Ayanna Vásquez Ordering Physician: Alyce Villareal Study Info Indications Murmur on exam - Primary Location: S3SX Left Ventricular Outflow Tract Name Value Normal LVOT 2D LVOT Diameter 1.9 cm LVOT Doppler LVOT Peak Velocity 162 cm/s LVOT Mean Gradient 6 mmHg LVOT VTI 44 cm LVOT VTI/AV VTI Ratio 0.4 LVOT Stroke Volume 124 ml Pulmonic Valve Name Value Normal PV Doppler PV Peak Velocity 115 cm/s Mitral Valve Name Value Normal MV Doppler MV Decel Smyth 509 cm/s2 MV PHT 60 ms MV Area (PHT) 3.6 cm2 4.0-5.0 MV Diastolic Function MV E Peak Velocity 106 cm/s MV A Peak Velocity 61 cm/s MV E/A 1.7 MV Annular TDI MV Septal e' Velocity 7.9 cm/s MV E/e' (Septal) 13.4 MV Lateral e' Velocity 7.3 cm/s MV E/e' (Lateral) 14.5 MV e' Average 7.62 cm/s MV E/e' (Average) 13.9 Tricuspid Valve Name Value Normal TV Regurgitation Doppler TR Peak Velocity 261 cm/s Estimated PAP/RSVP RA Pressure 3 mmHg <=5 PA Systolic Pressure 30 mmHg <36 RV Systolic Pressure 30 mmHg <36 Aortic Valve Name Value Normal AV 2D/MM AV Cusp Sep (MM) 1.0 cm AV Doppler AV Peak Velocity 419 cm/s AV Mean Gradient 39 mmHg AV VTI 104 cm AV Area (Cont Eq VTI) 0.8 cm2 >=3.0 AV Area (Cont Eq Ludwig) 1.1 cm2 AV DI (Ludwig) 0.39 AV Regurgitation 2D LVOT Area 2.8 cm2 Ventricles Name Value Normal LV Dimensions 2D/MM IVS Diastolic Thickness (2D) 1.0 cm 0.6-0.9 LVID Diastole (2D) 4.5 cm 3.8-5.2 LVIW Diastolic Thickness (2D) 1.0 cm 0.6-0.9 LVID Systole (2D) 3.1 cm 2.2-3.5 LVOT Diameter 1.9 cm LV Mass (2D Cubed) 153.27 g 67.00-162.00 LV Mass Index (2D Cubed) 89 g/m2 43-95 Relative Wall Thickness (2D) 0.44 <=0.42 IVS/LVIW Diastolic Thickness (2D) 1.00 0.00-1.50 LV Fractional Shortening/Ejection Fraction 2D/MM LV Fractional Shortening (2D) 31 % 27-45 LV EF (2D Teichholz) 59 % Atria Name Value Normal LA Dimensions LA Volume (4C A-L) 85 ml LA Volume (BP A-L) 78 ml Left Ventricle Left ventricular chamber dimension is normal. Left ventricular systolic function is normal with visually estimated ejection fraction of 55-60%. There is mild concentric hypertrophy noted in the left ventricle. Left ventricular segmental wall motion is normal. There is normal diastolic function in the left ventricle. Right Ventricle Right ventricular chamber dimension is mildly enlarged. Right ventricular systolic function is normal. Flattening of the ventricular septum in mid to late systole consistent with right ventricular volume overload. Left Atrium Left atrial chamber dimension is moderately enlarged. Right Atrium Right atrial chamber dimension is normal. Aortic Valve The aortic valve is trileaflet. There is moderate aortic valve sclerosis. There is severe aortic valve stenosis with a peak velocity of 419 cm/s, mean gradient of 39 mmHg, and aortic valve area of 0.8 cm2. There is mild aortic valve regurgitation. Pulmonic Valve The pulmonic valve is normal. There is no pulmonic valve stenosis. There is mild pulmonic regurgitation. Mitral Valve The mitral valve has normal leaflets. There is no mitral valve stenosis. There is mild mitral valve regurgitation. Tricuspid Valve The tricuspid valve leaflets are normal. There is no tricuspid valve stenosis. There is mild tricuspid valve regurgitation. No pulmonary hypertension, estimated pulmonary arterial systolic pressure is 30 mmHg and systemic blood pressure of 100 mmHg in systole. Pericardium/Pleural The pericardium appears normal. There is no pericardial effusion. No pleural effusion visualized. Inferior Vena Cava Normal inferior vena cava with >50% collapse upon inspiration consistent with normal right atrial pressure, 3 mmHg. Aorta The aortic measurements are indexed to age and body surface area. The aortic root at the sinus of Valsalva is not well visualized. The prox ascending aorta is not well visualized. Summary 1. There is moderate aortic valve sclerosis with SEVERE AORTIC stenosis and mild regurgitation. V max 4.1 m/s, mean PG 70mmHg. 2. Left ventricle size is normal and systolic function is normal. Estimated ejection fraction is 55-60%. There is normal diastolic function. 3. Right ventricle chamber size is mildly enlarged and systolic function is normal. Estimated RVSP is 30 mmHg with RAP 3. Mild HTN. 4. Flattening of the ventricular septum in mid to late systole consistent with right ventricular volume overload. 5. There is mild tricuspid, mitral and pulmonic valve regurgitation. 6. There is mild mitral valve regurgitation. 7. The left atrium is moderately enlarged. The right atrium is normal. 8. Normal IVC with estimated RA pressure 3 mmHg. Report Signatures Finalized by Lesli Vides on 10/11/2025 12:32 AM
[2025-10-10 16:51] LABS: Hematocrit 26.5 % (36.0-46.0); Hemoglobin 9.0 g/dL (12.0-16.0)
[2025-10-10 22:48] LABS: Hepatitis A Antibody IgM Non Reactive (Non React); Hepatitis B Core Antibody IgM Non Reactive (Non React); Hepatitis B Surface Antigen Non Reactive (Non React); Hepatitis C Antibody Non Reactive (Non React)
[2025-10-10 23:58] LABS: INR 1.3 (0.9-1.3); Partial Thromboplastin Time 32.3 Seconds (22.0-36.0); Prothrombin Time 13.4 Seconds (9.0-12.2)
[2025-10-11] VITALS (11 sets, daily range): BP systolic 101–130; BP diastolic 48–88; PULSE 52–78; RESP 16–97; TEMP 36.1–37.1; O2SAT 97–99
[2025-10-11 05:44] LABS: Basophils # (Auto) 0.0 Thou/mm3 (0.0-0.2); Basophils % (Auto) 1 % (0-2.5); Eosinophils # (Auto) 0.1 Thou/mm3 (0.0-0.5); Eosinophils % (Auto) 2 % (0-10); Hematocrit 26.3 % (36.0-46.0); Hemoglobin 8.9 g/dL (12.0-16.0); Immature Granulocytes Auto 0.01 Thou/mm3 (0.00-0.00); Lymphocytes # (Auto) 0.8 Thou/mm3 (1.0-4.8); Lymphocytes % (Auto) 24 % (10-50); Mean Corpuscular HGB Conc 33.8 g/dl (31.0-37.0); Mean Corpuscular Hemoglobin 30.6 pg (25.0-35.0); Mean Corpuscular Volume 90 fL (80-100); Monocytes # (Auto) 0.3 Thou/mm3 (0.0-0.8); Monocytes % (Auto) 10 % (0-12); Neutrophils # (Auto) 2.1 Thou/mm3 (1.8-7.7); Neutrophils % (Auto) 64 % (37-80); Nucleated Red Blood Cell # 0.00 Thou/mm3 (0.00-0.00); Nucleated Red Blood Cell % 0 /100 WBC (0); RDW Standard Deviation 69.6 fL (36.4-46.3); Red Blood Count 2.91 Miln/mm3 (4.00-5.20); White Blood Count 3.4 Thou/mm3 (3.6-11.0)
[2025-10-11 05:47] LABS: Platelet Count 62 Thou/mm3 (140-440)
[2025-10-11 05:48] LABS: Slide Review Platelets confirmed
[2025-10-11] MEDS: LACTULOSE SYRUP 20 GM/30 ML UDC 15 GM PO ×3 (05:49→21:26)
[2025-10-11] MEDS: LEVOTHYROXINE SODIUM 100 MCG TABLET PO (05:49)
[2025-10-11 05:56] LABS: INR 1.2 (0.9-1.3); Partial Thromboplastin Time 30.2 Seconds (22.0-36.0); Prothrombin Time 13.0 Seconds (9.0-12.2)
[2025-10-11 06:01] LABS: Alanine Aminotransferase 20 U/L (10-49); Albumin, Serum 2.5 gm/dL (3.4-4.8); Albumin/Globulin Ratio 0.8 (1.2-2.2); Alkaline Phosphatase 92 U/L (46-116); Anion Gap 7 (7-16); Aspartate Amino Transferase 40 U/L (0-34); BUN/Creatinine Ratio 12 Ratio (12-20); Bilirubin,Total 1.6 mg/dL (0.3-1.2); Blood Urea Nitrogen 13 mg/dL (9-23); Calcium 8.2 mg/dL (8.3-10.6); Calcium (Corrected) 9.4 mg/dL (8.5-10.1); Carbon Dioxide 20.7 mMol/L (20.0-31.0); Chloride 112 mMol/L (98-107); Creatinine (Component) 1.1 mg/dL (0.6-1.3); Estimated Creatinine Clearance 42.3 mL/min (>60); Globulin 3.3 gm/dL (2.3-3.5); Glucose 120 mg/dL (74-106); Magnesium 1.8 mg/dL (1.6-2.6); Osmolality,Calculated 280 (275-295); Phosphorous 2.5 mg/dL (2.4-5.1); Potassium 4.7 mMol/L (3.4-5.1); Sodium 140 mMol/L (136-145); Total Protein 5.8 gm/dL (5.7-8.2); eGFR 55 See Note
--- NOTE | 2025-10-11 08:52 | EKG_ITS ---
[facility] Test Date: 2025-10-11 Pat Name: YASEMIN VORA Department: Room: S378-A Gender: Female Medical Imaging Technician: VIVI : 1955 Requested By: Babak Coulter Order Number: [id number] Reading MD: Babak Coulter Measurements Intervals Donora Rate: 56 P: 14 FL: 168 QRS: -52 QRSD: 156 T: 5 QT: 486 QTc: 471 Interpretive Statements SINUS BRADYCARDIA RIGHT BUNDLE BRANCH BLOCK LEFT ANTERIOR FASCICULAR BLOCK MINIMAL VOLTAGE CRITERIA FOR LVH, CONSIDER NORMAL VARIANT POSSIBLE ANTERIOR MYOCARDIAL INFARCTION , OF INDETERMINATE AGE Compared to ECG 10/09/2025 21:12:36 Atrial fibrillation no longer present Myocardial infarct finding still present /store/S0/[id number].pdf
[2025-10-11] MEDS: levETIRAcetam INJ 100 MG/ML VIAL 5ML 1000 MG IVP ×2 (08:56→21:23)
[2025-10-11] MEDS: cefTRIAXone/D5w 1gm IV premix 1 GM/50 ML BAG IV (08:56)
[2025-10-11] MEDS: LACOSAMIDE INJ 200 MG/20 ML VIAL 100 MG IVP ×2 (08:56→21:20)
--- NOTE | 2025-10-11 10:56 | ESCONSULT_ITS ---
<Statement entered by Landy Boogie MD - 10/11/25 22:15> Patient was seen and examined by me personally. I have reviewed the below documentation by the team resident and agree with its findings. 70-year-old female with past medical history of decompensated cirrhosis, secondary to unknown cause status post portosystemic stent at [facility], hypothyroidism status post thyroidectomy, seizure disorder, GERD, history of GI bleed and urological problems who presented to [facility] emergency department on October 09, 2025 with a chief complaint of altered mental status. Patient was recently discharged from [facility] to [facility] where patient was found to be less interactive not eating well and hence was transferred to [facility] for further evaluation. Patient noted to have hyperammonemia and urinary tract infection for which patient was treated and mentation has improved significantly compared to admission. Patient noted to have systolic murmur in the aortic region, echocardiogram shows moderate to severe aortic stenosis and hence cardiology was consulted to establish care. Echocardiogram reviewed, patient does have moderate to severe aortic stenosis, V-max 4.1 m/s, mean pressure gradient 70 mmHg, however patient does have underlying severe comorbidity with liver cirrhosis with significant thrombocytopenia, patient is not established with hepatology outpatient outpatient workup completed at [facility]. Patient will also need further workup for bladder wall thickening to rule out malignancy. Also patient noted to have muscle wasting, likely has decreased appetite, poor p.o. intake, competent of protein calorie malnutrition. Cardiology will follow-up outpatient however informed family and patient regarding strict outpatient follow-up for underlying liver cirrhosis and bladder wall thickening, if patient has good prognosis, malignancy is ruled out will proceed with further TAVR workup outpatient. Thank you for the consult and allowing to participate in the care of the patient. Cardiology will continue to follow. Case discussed with Attending Physician Dr. Daniel Boogie MD Internal Medicine PGY-2 Disclaimer: This note was dictated by speech recognition. Minor errors in teacher education instructor may be present due to voice recognition software. HPI Data of Consult Requesting Physician: Griffin Pham MD Admitting Provider: Griffin Pham MD Attending Provider: Griffin Pham MD Primary Care Provider: Physician No Primary/Family Consult Narrative Reason for consult: Severe History of present illness: History of Present Illness: Ms. Ofelia Irvin is 71yF with PMH of decompensated cirrhosis, secondary to unknown cause status post portosystemic stent at [facility], hypothyroidism status post thyroidectomy, seizure disorder, GERD, history of GI bleed, iron deficiency anemia and urological problems who presented to the ED on 10/09/2025, from [facility] due to altered mental status. She experienced worsening generalized weakness and shortness of breathe, with intermittent palpation. She also has experienced increasing weakness leading to recurrent near-falls. MOreover, patient started to see visual hallucinations for a prolonged period, describing seeing individuals she initially believes to be her grandchildren, though they are not present. Patient was admitted for management of acute encephalopathy. Cardiology was consulted due to her Moderate-Servere Aortic Stenosis from ECHO (10/10/2025). ED course: Vitals: Temp: 97.9F, OK:56, RR:18, BP:134/55, O2sat: 95% on RA Labs: WBC: 3.5, Hgb: 9.8, Plt:73, PT: 13.0, eGFR:55, Glucose: 127, HbA1c: 4.8, Lactic acid:2.6, T.Bili: 2.1, Direct bili:1.0, Ammonia: 85, Troponin: <0.02, BNP: 191, Total protein: 6.2, Albumin: 2.7, TSH: 13.79, Free T4: 0.5, Free T3: 0.9 UA: Urine blood: 3+, Urine RBC: 1347, Urine WBC: 131, Urine Bacteria: none, Urine Yeast: Present CT Chest/abd/pelvis wo contract (10/09/2025): showed Heavy abdominal aortic calcification no aneurysmal dilatation, Heavy Calcificaition left main and left anterior descending left circumflex coronary arteries, No thoracic aortic aneurysmal dilatation, Main pulmonary artery segment is enlarged 42 mm, Pulmonary artery hypertension, COPD, Cirrhosis, prominent splenomegaly, Significant vascular congestion, Moderate ascites, Thickening of bladder wall (cystitis vs early bladder carcinoma), coloninc diverticulosis. In ED, patient was given Fluconazole IV 200mg x1, Ondansetrol IV 4 mg x1, IV bolus LR 1L x1, Ceftriaxone 1g IV x1. Medical history: As stated above Surgical history: Cholecystectomy, Thyroid surgeries Allergies: NKDA Medications: Furosemide 20mg 3 times per week, Lacosamide 100mg po bid, Lactulose 10g po bid, Keppra 1000mg po bid, LEvothyroxine 75mcg po qd, Midodrine 10mg po tid, Protonix 40mg po qd, Pramipexole 0.5mg po qd, Rifaximin 550 mg po bid, Magnesium hydroxide 400mg po prn, Dulcolax 10mg OK qd prn, Family history: Mother had Gastric cancer, Social history: Denies smoking cigarettes, drinking alcohol or using other illicit drugs. Used to drink 3 cups of coffee. 10/11/2025: The patient has severe aortic stenosis with extensive vascular and coronary calcification in the setting of advanced cirrhosis (MELD-Na score 12, Child-Louie score 11, class C). Given the severity of hepatic dysfunction, the patient is at markedly increased julio-procedural risk. TAVR can be possible, but require more careful evaluation with consideration of overall prognosis and goals of care. Patient's current code status is DNR. Based on lab result and patient's status on admission 10/09, MELD-Na score: 12, <2% estimated 90 day mortality, Child-Louie Score: 11 points, Child Class C, Life Expectancy 1-3 yrs, Abdominal Surgery julio-operative mortality 82% cc:: cc: Griffin Pham MD Review of Systems Review of Systems Narrative Review of Systems: All 12 systems assessed and the patient denies unless otherwise stated in HPI Exam Vital Signs Temp Pulse Resp BP Pulse Ox O2 Del Method 97.7 F 52 L 17 104/50 L 99 Room Air 10/11/25 08:00 10/11/25 08:00 10/11/25 08:00 10/11/25 08:00 10/11/25 08:00 10/11/25 08:00 Narrative Exam General: No acute distress, well nourished, AAO x2, Elderly, Frail Eye: Normal conjunctiva, no scleral icterus HENT: Normocephalic, atraumatic, hearing intact to conversation at normal volume, moist oral mucosa Lungs: Non-labored respirations, symmetric chest rise, Clear to auscultate bilaterally, No wheezing, rhonchi, crackles Heart: Peripheral pulses intact bilaterally, Regular Rate and Rhythm. Harsh systolic murmur, Rebound pulse Abdomen: Soft, non-tender, non-distended, no palpable masses Musculoskeletal: Normal range of motion and strength, No cyanosis or edema, No visible joint swelling Skin: Skin is warm, dry, no rashes or lesions. Psychiatric: Cooperative, appropriate mood and affect, Awake and alert, not agitated Neuro: Cranial nerves II-XII grossly intact. Strength 5/5 throughout. Sensations intact to light touch. Results Labs 10/13/25 06:08 10/13/25 06:08 Labs: Short CBC 10/10/25 10/11/25 Range/Units 15:59 05:06 WBC 3.4 L (3.6-11.0) Thou/mm3 Hgb 9.0 L 8.9 L (12.0-16.0) g/dL Hct 26.5 L 26.3 L (36.0-46.0) % Plt Count 62 L (140-440) Thou/mm3 BMP 10/11/25 05:06 Sodium 140 Potassium 4.7 Chloride 112 H Carbon Dioxide 20.7 BUN 13 Creatinine 1.1 Glucose 120 H Calcium 8.2 L Liver Function 10/11/25 Range/Units 05:06 Total Bilirubin 1.6 H (0.3-1.2) mg/dL AST 40 H (0-34) U/L ALT 20 (10-49) U/L Alkaline Phosphatase 92 (46-116) U/L Albumin 2.5 L (3.4-4.8) gm/dL ABG Interpretation ABG results: 10/09/25 21:10 VBG pH 7.34 VBG pCO2 40 VBG pO2 49 VBG Base Excess -4 L Quality Measures Quality Measures VTE prophylaxis Advance care planning discussed with:: patient and other Medications Home Medications and Allergies Home Medications ?Medication ?Instructions ?Recorded ?Confirmed ?Type bisacodyl 10 mg rectal suppository 10 mg OK QDAY PRN c onstipation 10/10/25 10/10/25 History (Dulcolax (bisacodyl)) furosemide 20 mg tablet (Lasix) 20 mg PO .COMPLEX 09/2910/10/25 History lacosamide 100 mg tablet 100 mg PO BID 10/10/2510/10 History lactulose 10 gram/15 mL oral 10 g PO BID 10/10/2509/29 History solution levetiracetam 1,000 mg tablet 1,000 mg PO BID 10/10/25 10/10/25 History (Keppra) levothyroxine 75 mcg capsule 75 mcg PO QDAY 10/10/25 1 12/11/24 History magnesium hydroxide 400 mg/5 mL 400 mg PO .COMPLEX PRN constipation 10/10/25 10/10/25 History oral suspension (Milk of Magnesia) midodrine 10 mg tablet 10 mg PO TID 10/10/25 History pantoprazole 40 mg tablet,delayed 40 mg PO QDAY 10/10/25 History release (Protonix) pramipexole 0.5 mg tablet 0.5 mg PO QDAY 10/10/2509/29 History rifaximin 550 mg tablet 550 mg PO BID 10/10/2510/10 History sodium phosphates See Rx Instructions OK .COMP ELDON 10/10/25 10/10/25 History PRN constipation Allergies Allergy/AdvReac Type Severity Reaction Status Date / Time No Known Allergies Allergy Verified 10/09/25 20:54 Visit Medications Acetaminophen (Acetaminophen 325 Mg Tablet) 650 mg PO Q6H PRN PRN Reason: Fever >101.5 or pain 1-3 Stop: 11/08/25 23:36 Ceftriaxone Sodium/Dextrose (Rocephin/D5w 1gm Iv Premix) 1 gm in 50 mls @ 100 mls/hr IV QDAY [facility] Stop: 10/17/25 08:59 Last Admin: 10/11/25 08:56 Dose: 100 mls/hr Lacosamide (Lacosamide Inj 200 Mg/20 Ml Vial) 100 mg IVP BID [facility] Stop: 11/09/25 08:59 Last Admin: 10/11/25 08:56 Dose: 100 mg Lactulose (Lactulose Syrup 20 Gm/30 Ml Udc) 15 gm PO TID [facility]; Protocol Stop: 11/09/25 05:59 Last Admin: 10/11/25 05:49 Dose: 15 gm Levetiracetam (Levetiracetam Inj 100 Mg/Ml Vial 5ml) 1,000 mg IVP Q12HR [facility] Stop: 11/09/25 08:59 Last Admin: 10/11/25 08:56 Dose: 1,000 mg Levothyroxine Sodium (Levothyroxine Sodium 100 Mcg Tablet) 100 mcg PO ACBR [facility] Stop: 11/09/25 05:59 Last Admin: 10/11/25 05:49 Dose: 100 mcg Midodrine (Midodrine 5 Mg Tablet) 10 mg PO TID [facility] Stop: 11/09/25 05:59 Last Admin: 10/11/25 05:46 Dose: Not Given Ondansetron HCl (Ondansetron Inj 2 Mg/Ml Inj 2 Ml) 4 mg IVP Q6H PRN; Protocol PRN Reason: NAUSEA OR VOMITING Stop: 11/08/25 23:36 Pantoprazole Sodium (Pantoprazole Inj 40 Mg Vial) 40 mg IVP QDAY [facility] Stop: 11/09/25 08:59 Last Admin: 10/11/25 08:57 Dose: 40 mg Rifaximin (Rifaximin 550 Mg Tablet) 550 mg PO BID [facility] Stop: 10/17/25 08:59 Last Admin: 10/11/25 08:57 Dose: 550 mg Discontinued Medications Furosemide (Furosemide Inj 10 Mg/Ml Vial 2 Ml) 20 mg IVP X1 ONE Stop: 10/10/25 02:55 Last Admin: 10/10/25 03:43 Dose: Not Given Lactated Ringer's (Lactated Ringers) 1,000 mls @ 1,000 mls/hr IV .Q1H ONE Stop: 10/09/25 22:01 Last Infusion: 10/09/25 22:50 Dose: Infused Ceftriaxone Sodium/Dextrose (Rocephin/D5w 1gm Iv Premix) 1 gm in 50 mls @ 100 mls/hr IV X1 ONE Stop: 10/09/25 22:07 Last Infusion: 10/09/25 22:50 Dose: Infused Fluconazole (Diflucan/Ns Ivpb) 200 mg in 100 mls @ 100 mls/hr IV X1 ONE Stop: 10/09/25 22:37 Last Infusion: 10/10/25 00:53 Dose: Infused Ceftriaxone Sodium/Dextrose (Rocephin/D5w 1gm Iv Premix) 1 gm in 50 mls @ 100 mls/hr IV QDAY [facility] Stop: 10/16/25 23:42 Last Admin: 10/10/25 00:03 Dose: Not Given Lactated Ringer's (Lactated Ringers) 1,000 mls @ 100 mls/hr IV .Q10H ONE Stop: 10/10/25 09:48 Last Admin: 10/10/25 00:32 Dose: 100 mls/hr Ondansetron HCl (Ondansetron Inj 2 Mg/Ml Inj 2 Ml) 4 mg IVP X1 ONE; Protocol Stop: 10/09/25 21:03 Last Admin: 10/09/25 21:20 Dose: 4 mg Assessment & Plan Plan Ms. Ofelia Irvin is 71yF with PMH of iron deficiency anemia, seizures, cirrhosis, HTN, hypothyrodism and diabetes, presented to the ED on 10/09/2025, from [facility] due to altered mental status. Patient was admitted for management of acute encephalopathy. Cardiology was consulted due to her Safety Security Officer Aortic Stenosis from ECHO (10/10/2025). #Moderate-Severe Aortic Stenosis #Heavy Calcifications of abdominal aorta, left main, Left anterior descending, left circumflex coronary arteries #Pulmonary Artery Hypertension -Patient presents with progressively worsening SOB and generalized weakness. -Patient's home medication includes Furosemide 20mg po 3 times per week. -CT Chest/abd/pelvis wo contract (10/09/2025): showed Heavy abdominal aortic calcification no aneurysmal dilatation, Heavy Calcificaition left main and left anterior descending, and left circumflex coronary arteries, No thoracic aortic aneurysmal dilatation, Main pulmonary artery segment is enlarged 42 mm, Pulmonary artery hypertension, COPD, Cirrhosis, prominent splenomegaly, Significant vascular congestion, Moderate ascites, Thickening of bladder wall (cystitis vs early bladder carcinoma), coloninc diverticulosis. -[ECHO (10/10/2025)] showed: 1. There is moderate aortic valve sclerosis with SEVERE AORTIC stenosis andmild regurgitation. V max 4.1 m/s, mean PG 40 mm Hg. 2. Left ventricle size is normal and systolic function is normal. Estimatedejection fraction is 55-60%. There is normal diastolic function. 3. Right ventricle chamber size is mildly enlarged and systolic function is normal. Estimated RVSP is 30 mmHg with RAP 3. Mild HTN. 4. Flattening of the ventricular septum in mid to late systole consistent with right ventricular volume overload. 5. There is mild tricuspid, mitral and pulmonic valve regurgitation. 6. There is mild mitral valve regurgitation. 7. The left atrium is moderately enlarged. The right atrium is normal. 8. Normal IVC with estimated RA pressure 3 mmHg. Plan: -The patient has severe aortic stenosis with extensive vascular and coronary calcification in the setting of advanced cirrhosis (MELD-Na score 12, Child-Louie score 11, class C). - Echocardiogram reviewed, patient does have severe aortic stenosis, V-max 4.1 m/s, mean pressure gradient 40 mmHg, however patient does have underlying severe comorbidity with liver cirrhosis with significant thrombocytopenia, patient is not established with hepatology outpatient outpatient workup completed at [facility]. Patient will also need further workup for bladder wall thickening to rule out malignancy. Also patient noted to have muscle wasting, likely has decreased appetite, poor p.o. intake, competent of protein calorie malnutrition. -Given the severity of hepatic dysfunction, the patient is at markedly increased julio-procedural risk. Cardiology will follow-up outpatient however informed family and patient regarding strict outpatient follow-up for underlying liver cirrhosis and bladder wall thickening, if patient has good prognosis, malignancy is ruled out will proceed with further TAVR workup outpatient otherwise medical management. -Strict I/O -Keep Mg >2 and K>4 #Acute encephalopathy 2/2 #Hepatic Encephalopathy2/2 #Cirrhosis 2/2 #MASLD #UTI, possible -Presented with altered mental status, AOx1, Generalized weakness and worsening SOB -CT Chest/abd/pelvis wo contract (10/09/2025): showed Heavy abdominal aortic calcification no aneurysmal dilatation, Heavy Calcificaition left main and left anterior descending, and left circumflex coronary arteries, No thoracic aortic aneurysmal dilatation, Main pulmonary artery segment is enlarged 42 mm, Pulmonary artery hypertension, COPD, Cirrhosis, prominent splenomegaly, Significant vascular congestion, Moderate ascites, Thickening of bladder wall (cystitis vs early bladder carcinoma), coloninc diverticulosis. -Based on lab result and patient's status on admission 10/09, MELD-Na score: 12, <2% estimated 90 day mortality, Child-Louie Score: 11 points, Child Class C, Life Expectancy 1-3 yrs, Abdominal Surgery julio-operative mortality 82% -Possibe UTI as a cause of altered mental status. On admission (10/09), UA showed Urine blood: 3+, Urine RBC: 1347, Urine WBC: 131, Urine Bacteria: none, Urine Yeast: Present Plan: -On Lactulose 15g tid, Rifaximin 550mg bid, Ceftriaxone 1g IV qd, -Strict I/O -Daily monitioring of mental status -f/u with UCx and BCx. #Seizure Disorder #Hypothyroidism #Pancytopenia #Iron Deficiency Anemia #Colonic diverticulosis #GERD -Management per Primary Hospitalist team Thank you for allowing us to participate in the care of your patient. Assessment and plan discussed with my attending physician Dr. Lockhart. Dr. Villa (PGY-1) - Internal medicine resident Attending Provider Attestation/Addendum I have personally seen and examined the patient separately on the above date of service and discussed the plan of care with the resident. I reviewed the resident Dr. Dangelo Villa / Landy Boogie consultation progress note and agree with the resident findings and plan in the note above and have also edited the documentation to reflect my findings and plan. Daniel Lockhart M.D. Interventional Cardiology
[2025-10-11] MEDS: Magnesium Sulfate 4 GM Ivpb 4 GM/50 ML BAG IV (11:34)
--- NOTE | 2025-10-11 12:31 | ESPR_ITS ---
<Statement entered by Babka Coulter MD - 10/11/25 13:14> Patient was examined and case was reviewed with team including attending physician. Note reviewed, I agree with most of its contents and agree with the patient's care as documented by Dr. Navarro Patient seen today at the bedside found awake, alert, orientedx3. Mentation at baseline. No overnight events reported. Vitals and labs reviewed. Hg stable at 8.9. On physical exam noted to have a murmur on the RUSB radiating to the carotids consistent with Aortic stenosis, also noted on echocardiogram, Cardiology was consulted to see if patient will benefit from possible TAVR procedure. Patient also noted to have gross hematuria on Mckenzie bag. Urology consulted respectively. Case discussed with my attending Dr. Dionna Coulter MD PGY-2 Disclaimer: Despite multiple revisions, due to the dictation software being used, the document bellow may not be free of grammatical errors including phonetic/typographic errors. However, this does not deter from our commitment to providing health care in the patient's best interest in mind. Documentation for date of: 10/11/25 Subjective Subjective Interval history: Patient seen at bedside this morning. She is awake, alert, and oriented to person, place, and time (AOx3). Reports feeling well overall. She had 2 bowel movements this morning. Denies nausea, vomiting, abdominal pain, fever, chills, flank pain, dysuria, chest pain, shortness of breath, dizziness, or lightheadedness. She is aware of blood in the Mckenzie bag but denies clots or discomfort. Exam Vital Signs Temp Pulse Resp BP Pulse Ox O2 Del Method 97.7 F 52 L 17 104/50 L 99 Room Air 10/11/25 08:00 10/11/25 08:00 10/11/25 08:00 10/11/25 08:00 10/11/25 08:00 10/11/25 08:00 Narrative Exam General: Awake, alert, no acute distress HEENT: Normocephalic, atraumatic, PERRL Cardiovascular: Regular rate and rhythm, systolic murmur appreciated Respiratory: Clear to auscultation bilaterally, no respiratory distress Abdomen: Soft, non-tender, mildly distended, bowel sounds present : Mckenzie catheter in place with gross hematuria, no clots noted Extremities: No edema Neuro: AOx3, normal speech, follows commands, no focal deficits Skin: Warm and dry Objective Labs 10/12/25 05:16 10/12/25 05:16 Labs: Laboratory Results - last 24 hr 10/10/25 10/10/25 10/10/25 04:03 15:59 23:36 WBC RBC Hgb 9.0 L Hct 26.5 L MCV MCH MCHC RDW Std Deviation Plt Count Neut % (Auto) Lymph % (Auto) [place] % (Auto) Eos % (Auto) Baso % (Auto) Neut # (Auto) Lymph # (Auto) [place] # (Auto) Eos # (Auto) Baso # (Auto) Immature Gran # (Auto) Absolute Nucleated RBC Immature Gran % Nucleated RBC % PT 13.4 H INR 1.3 APTT 32.3 Sodium Potassium Chloride Carbon Dioxide Anion Gap BUN Creatinine Estim Creat Clear Calc eGFR BUN/Creatinine Ratio Glucose Calculated Osmolality Calcium Corrected Calcium Phosphorus Magnesium Total Bilirubin AST ALT Alkaline Phosphatase Total Protein Albumin Globulin Albumin/Globulin Ratio Hepatitis A IgM Ab Non Reactive Hep Bs Antigen Non Reactive Hep B Core IgM Ab Non Reactive Hepatitis C Antibody Non Reactive [facility] [place] Result 10/11/25 05:06 WBC 3.4 L RBC 2.91 L Hgb 8.9 L Hct 26.3 L MCV 90 MCH 30.6 MCHC 33.8 RDW Std Deviation 69.6 H Plt Count 62 L Neut % (Auto) 64 Lymph % (Auto) 24 [place] % (Auto) 10 Eos % (Auto) 2 Baso % (Auto) 1 Neut # (Auto) 2.1 Lymph # (Auto) 0.8 L [place] # (Auto) 0.3 Eos # (Auto) 0.1 Baso # (Auto) 0.0 Immature Gran # (Auto) 0.01 H Absolute Nucleated RBC 0.00 Immature Gran % 0 Nucleated RBC % 0 PT 13.0 H INR 1.2 APTT 30.2 Sodium 140 Potassium 4.7 Chloride 112 H Carbon Dioxide 20.7 Anion Gap 7 BUN 13 Creatinine 1.1 Estim Creat Clear Calc 42.3 L eGFR 55 L BUN/Creatinine Ratio 12 Glucose 120 H Calculated Osmolality 280 Calcium 8.2 L Corrected Calcium 9.4 Phosphorus 2.5 Magnesium 1.8 Total Bilirubin 1.6 H AST 40 H ALT 20 Alkaline Phosphatase 92 Total Protein 5.8 Albumin 2.5 L Globulin 3.3 Albumin/Globulin Ratio 0.8 L Hepatitis A IgM Ab Hep Bs Antigen Hep B Core IgM Ab Hepatitis C Antibody Misc Test Result Platelets confirmed ABG Interpretation ABG results: 10/09/25 21:10 VBG pH 7.34 VBG pCO2 40 VBG pO2 49 VBG Base Excess -4 L Quality Measures Quality Measures VTE prophylaxis Advance care planning discussed with:: patient Assessment & Plan Assessment Current Active Medications: Generic Name Dose Route Start Last Admin Trade Name Freq PRN Reason Stop Dose Admin Acetaminophen 650 mg 10/09/25 23:37 Acetaminophen 325 Mg Tablet PO 11/08/25 23:36 Q6H PRN Fever >101.5 or pain 1-3 Ceftriaxone Sodium/Dextrose 1 gm in 50 mls @ 100 mls/hr 10/10/25 09:00 10/11/25 08:56 Rocephin/D5w 1gm Iv Premix IV 10/17/25 08:59 100 mls/hr QDAY RASHEED Administration Magnesium Sulfate 4 gm in 50 mls @ 12.5 mls/hr 10/11/25 10:56 10/11/25 11:34 Magnesium Sulfate Ivpb IV 10/11/25 14:55 12.5 mls/hr X1 ONE Administration Lacosamide 100 mg 10/10/25 09:00 10/11/25 08:56 Lacosamide Inj 200 Mg/20 Ml Vial IVP 11/09/25 08:59 100 mg BID RASHEED Administration Lactulose 15 gm 10/10/25 06:00 10/11/25 05:49 Lactulose Syrup 20 Gm/30 Ml Udc PO 11/09/25 05:59 15 gm TID RASHEED Administration Protocol Levetiracetam 1,000 mg 10/10/25 09:00 10/11/25 08:56 Levetiracetam Inj 100 Mg/Ml Vial 5ml IVP 11/09/25 08:59 1,000 mg Q12HR RASHEED Administration Levothyroxine Sodium 100 mcg 10/10/25 06:00 10/11/25 05:49 Levothyroxine Sodium 100 Mcg Tablet PO 11/09/25 05:59 100 mcg ACBR RASHEED Administration Midodrine 10 mg 10/10/25 06:00 10/11/25 05:46 Midodrine 5 Mg Tablet PO 11/09/25 05:59 Not Given TID [facility] Ondansetron HCl 4 mg 10/09/25 23:37 Ondansetron Inj 2 Mg/Ml Inj 2 Ml IVP 11/08/25 23:36 Q6H PRN NAUSEA OR VOMITING Protocol Pantoprazole Sodium 40 mg 10/10/25 09:00 10/11/25 08:57 Pantoprazole Inj 40 Mg Vial IVP 11/09/25 08:59 40 mg QDAY RASHEED Administration Rifaximin 550 mg 10/10/25 09:00 10/11/25 08:57 Rifaximin 550 Mg Tablet PO 10/17/25 08:59 550 mg BID RASHEED Administration Plan 70-year-old female with 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 Patient is normally able to interactive and was found to not be as interactive, more lethargic, and not eating as much. 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 Patient may be suffering from acute encephalopathy secondary to a urinary tract infection with possible component of hepatic encephalopathy, however the patient has been lactulose and rifaximin at her nursing facility. Diagnostic: Urinalysis positive for 131 WBC, 1347 RBC, and leukocyte esterase positive CT head 10/09 negative for acute abnormalities, small old appearing infarct in the left cerebral hemisphere CT chest/abdomen/pelvis 10/09 positive for cirrhosis, prominent hepatomegaly, moderate ascites, colonic diverticulosis and thickening of the bladder wall On admission, AST noted to be 47, ALT 22, and bilirubin 2.1 Ammonia on admission 85 UA grossly positive on admission; patient clinically stable without systemic symptoms. Blood cultures collected 10/09, pending Urine culture collected 10/09, pending 10/11: Mental status now at baseline (AOx3). Persistent hematuria via Mckenzie without clots; CT showed bladder wall thickening, malignancy not excluded. Improving bilirubin 1.6 Lactic acid 1.6, resolved Plan: * Continue lactulose 15 g TID, goal 2?3 BMs/day * Continue rifaximin 550 mg BID * Monitor mental status daily * Continue ceftriaxone 1 g IV daily (started 10/09) * Follow urine and blood cultures * Monitor WBC and vitals * Continue to monitor urine output and appearance * Trend hemoglobin daily * Urology consult pending on monday * Strict I/Os # Severe Aortic Stenosis Severe on echo; currently asymptomatic. Plan: * Cardiology consult for further evaluation and outpatient planning * Monitor for chest pain, syncope, or dyspnea # Seizure Disorder Patient does have history of seizures for which she takes Keppra and lacosamide for. Plan: * Continue Keppra 1 g BID and lacosamide 100 mg BID * Seizure precautions * Neuro checks per routine # Hypothyroidism Patient does have history of hypothyroidism for which she takes levothyroxine 75 mcg daily for management outpatient. TSH on admission 13.79 with free T4 0.5 And free T3 0.9 Plan: * Continue levothyroxine 100 mcg daily # Pancytopenia # Iron Deficiency Anemia Chronic, likely multifactorial including cirrhosis and antiepileptics; Hgb stable today. Patient noted to have hemoglobin of 9.8, WBC of 3.5, and platelet of 73 on admission. Possibly secondary to her Keppra and lacosamide as that has been shown to be associated with pancytopenia. Plan: * Continue to monitor CBC * Outpatient hematology follow-up #Colonic diverticulosis As noted on CT chest/abdomen/pelvis 10/09 # GERD Plan: * Continue Protonix 40 mg daily Health maintenance: DVT: SCDs GI: Protonix Diet: Low sodium Code Status: DNR Disposition: Continue MedSur care; pending urology and cardiology recommendations ----- Plan discussed with attending physician Dr. Villareal and senior resident Dr. Vernon Navarro MD PGY-1 Internal Medicine Attending Provider Attestation/Addendum I have seen and examined the patient. I was physically present for the jaffe portions of the services provided including history, physical exam, diagnosis, treatment plans and orders. I agree with assessment and plan of care as documented by residents. Even though this this note was carefully revised there may still be minor errors in development mechanic due to voice recognition software. Alyce Villareal MD
[2025-10-11] MEDS: MIDODRINE 5 MG TABLET 10 MG PO (13:35)
[2025-10-12] VITALS (9 sets, daily range): BP systolic 105–131; BP diastolic 47–60; PULSE 60–72; RESP 16–97; TEMP 36.2–36.9; O2SAT 98–99
[2025-10-12] MEDS: LACTULOSE SYRUP 20 GM/30 ML UDC 15 GM PO ×3 (05:19→21:13)
[2025-10-12] MEDS: LEVOTHYROXINE SODIUM 100 MCG TABLET PO (05:20)
[2025-10-12 05:50] LABS: Basophils # (Auto) 0.0 Thou/mm3 (0.0-0.2); Basophils % (Auto) 1 % (0-2.5); Eosinophils # (Auto) 0.1 Thou/mm3 (0.0-0.5); Eosinophils % (Auto) 2 % (0-10); Hematocrit 24.5 % (36.0-46.0); Hemoglobin 8.5 g/dL (12.0-16.0); Immature Granulocytes Auto 0.01 Thou/mm3 (0.00-0.00); Lymphocytes # (Auto) 0.8 Thou/mm3 (1.0-4.8); Lymphocytes % (Auto) 23 % (10-50); Mean Corpuscular HGB Conc 34.7 g/dl (31.0-37.0); Mean Corpuscular Hemoglobin 31.3 pg (25.0-35.0); Mean Corpuscular Volume 90 fL (80-100); Monocytes # (Auto) 0.3 Thou/mm3 (0.0-0.8); Monocytes % (Auto) 9 % (0-12); Neutrophils # (Auto) 2.3 Thou/mm3 (1.8-7.7); Neutrophils % (Auto) 64 % (37-80); Nucleated Red Blood Cell # 0.00 Thou/mm3 (0.00-0.00); Nucleated Red Blood Cell % 0 /100 WBC (0); Platelet Count 62 Thou/mm3 (140-440); RDW Standard Deviation 69.9 fL (36.4-46.3); Red Blood Count 2.72 Miln/mm3 (4.00-5.20); White Blood Count 3.5 Thou/mm3 (3.6-11.0)
[2025-10-12 05:51] LABS: Slide Review Platelets confirmed
[2025-10-12 06:04] LABS: INR 1.1 (0.9-1.3); Partial Thromboplastin Time 30.1 Seconds (22.0-36.0); Prothrombin Time 12.0 Seconds (9.0-12.2)
[2025-10-12 06:11] LABS: Alanine Aminotransferase 26 U/L (10-49); Albumin, Serum 2.4 gm/dL (3.4-4.8); Albumin/Globulin Ratio 0.7 (1.2-2.2); Alkaline Phosphatase 148 U/L (46-116); Anion Gap 9 (7-16); Aspartate Amino Transferase 48 U/L (0-34); BUN/Creatinine Ratio 19 Ratio (12-20); Bilirubin,Total 1.4 mg/dL (0.3-1.2); Blood Urea Nitrogen 23 mg/dL (9-23); Calcium 7.8 mg/dL (8.3-10.6); Calcium (Corrected) 9.1 mg/dL (8.5-10.1); Carbon Dioxide 20.5 mMol/L (20.0-31.0); Chloride 111 mMol/L (98-107); Creatinine (Component) 1.2 mg/dL (0.6-1.3); Estimated Creatinine Clearance 38.7 mL/min (>60); Globulin 3.4 gm/dL (2.3-3.5); Glucose 175 mg/dL (74-106); Magnesium 2.4 mg/dL (1.6-2.6); Osmolality,Calculated 287 (275-295); Phosphorous 1.9 mg/dL (2.4-5.1); Potassium 4.7 mMol/L (3.4-5.1); Sodium 140 mMol/L (136-145); Total Protein 5.8 gm/dL (5.7-8.2); eGFR 49 See Note
[2025-10-12] MEDS: cefTRIAXone/D5w 1gm IV premix 1 GM/50 ML BAG IV (08:41)
[2025-10-12] MEDS: levETIRAcetam INJ 100 MG/ML VIAL 5ML 1000 MG IVP ×2 (08:41→21:10)
[2025-10-12] MEDS: LACOSAMIDE INJ 200 MG/20 ML VIAL 100 MG IVP ×2 (08:41→21:06)
[2025-10-12] MEDS: NAPH,KPH MBDB 1 PACKET (1.5 GM) PO (08:42)
--- NOTE | 2025-10-12 09:18 | PD.RESPRO ---
Documentation for date of: 10/12/25 Subjective Subjective Interval history: Patient seen examined at bedside, no current complaints. Patient is more alert compared to yesterday. Labs and vitals reviewed, platelet count stable at 62,000, hemoglobin 8.9. Exam Vital Signs Temp Pulse Resp BP Pulse Ox O2 Del Method 97.2 F 67 17 106/55 L 99 Room Air 10/12/25 08:00 10/12/25 08:00 10/12/25 08:00 10/12/25 08:00 10/12/25 08:00 10/12/25 08:00 Narrative Exam General: No acute distress, well nourished, AAO x2, Elderly, Frail Eye: Normal conjunctiva, no scleral icterus HENT: Normocephalic, atraumatic, hearing intact to conversation at normal volume, moist oral mucosa Lungs: Non-labored respirations, symmetric chest rise, Clear to auscultate bilaterally, No wheezing, rhonchi, crackles Heart: Peripheral pulses intact bilaterally, Regular Rate and Rhythm. Harsh systolic murmur 6/6 aortic region, bounding carotid pulse. Abdomen: Soft, non-tender, non-distended, no palpable masses Musculoskeletal: Normal range of motion and strength, No cyanosis or edema, No visible joint swelling Skin: Skin is warm, dry, no rashes or lesions. Psychiatric: Cooperative, appropriate mood and affect, Awake and alert, not agitated Neuro: Cranial nerves II-XII grossly intact. Strength 5/5 throughout. Sensations intact to light touch. Objective Labs 10/13/25 06:08 10/13/25 06:08 Labs: Laboratory Results - last 24 hr 10/12/25 05:16 WBC 3.5 L RBC 2.72 L Hgb 8.5 L Hct 24.5 L MCV 90 MCH 31.3 MCHC 34.7 RDW Std Deviation 69.9 H Plt Count 62 L Neut % (Auto) 64 Lymph % (Auto) 23 [place] % (Auto) 9 Eos % (Auto) 2 Baso % (Auto) 1 Neut # (Auto) 2.3 Lymph # (Auto) 0.8 L [place] # (Auto) 0.3 Eos # (Auto) 0.1 Baso # (Auto) 0.0 Immature Gran # (Auto) 0.01 H Absolute Nucleated RBC 0.00 Immature Gran % 0 Nucleated RBC % 0 PT 12.0 INR 1.1 APTT 30.1 Sodium 140 Potassium 4.7 Chloride 111 H Carbon Dioxide 20.5 Anion Gap 9 BUN 23 Creatinine 1.2 Estim Creat Clear Calc 38.7 L eGFR 49 L BUN/Creatinine Ratio 19 Glucose 175 H D Calculated Osmolality 287 Calcium 7.8 L Corrected Calcium 9.1 Phosphorus 1.9 L Magnesium 2.4 Total Bilirubin 1.4 H AST 48 H ALT 26 Alkaline Phosphatase 148 H D Total Protein 5.8 Albumin 2.4 L Globulin 3.4 Albumin/Globulin Ratio 0.7 L Misc Test Result Platelets confirmed ABG Interpretation ABG results: 10/09/25 21:10 VBG pH 7.34 VBG pCO2 40 VBG pO2 49 VBG Base Excess -4 L Quality Measures Quality Measures VTE prophylaxis Advance care planning discussed with:: patient Assessment & Plan Assessment Current Active Medications: Generic Name Dose Route Start Last Admin Trade Name Freq PRN Reason Stop Dose Admin Acetaminophen 650 mg 10/09/25 23:37 Acetaminophen 325 Mg Tablet PO 11/08/25 23:36 Q6H PRN Fever >101.5 or pain 1-3 Ceftriaxone Sodium/Dextrose 1 gm in 50 mls @ 100 mls/hr 10/10/25 09:00 10/12/25 08:41 Rocephin/D5w 1gm Iv Premix IV 10/17/25 08:59 100 mls/hr QDAY RASHEED Administration Lacosamide 100 mg 10/10/25 09:00 10/12/25 08:41 Lacosamide Inj 200 Mg/20 Ml Vial IVP 11/09/25 08:59 100 mg BID RASHEED Administration Lactulose 15 gm 10/10/25 06:00 10/12/25 05:19 Lactulose Syrup 20 Gm/30 Ml Udc PO 11/09/25 05:59 15 gm TID RASHEED Administration Protocol Levetiracetam 1,000 mg 10/10/25 09:00 10/12/25 08:41 Levetiracetam Inj 100 Mg/Ml Vial 5ml IVP 11/09/25 08:59 1,000 mg Q12HR RASHEED Administration Levothyroxine Sodium 100 mcg 10/10/25 06:00 10/12/25 05:20 Levothyroxine Sodium 100 Mcg Tablet PO 11/09/25 05:59 100 mcg ACBR RASHEED Administration Midodrine 10 mg 10/10/25 06:00 10/12/25 05:14 Midodrine 5 Mg Tablet PO 11/09/25 05:59 Not Given TID RASHEED Ondansetron HCl 4 mg 10/09/25 23:37 Ondansetron Inj 2 Mg/Ml Inj 2 Ml IVP 11/08/25 23:36 Q6H PRN NAUSEA OR VOMITING Protocol Pantoprazole Sodium 40 mg 10/10/25 09:00 10/12/25 08:42 Pantoprazole Inj 40 Mg Vial IVP 11/09/25 08:59 40 mg QDAY RASHEED Administration Rifaximin 550 mg 10/10/25 09:00 10/12/25 08:42 Rifaximin 550 Mg Tablet PO 10/17/25 08:59 550 mg BID RASHEED Administration Plan Ms. Ofelia Irvin is a 70-year-old female with past medical history of decompensated cirrhosis, secondary to unknown cause status post portosystemic stent at [facility], hypothyroidism status post thyroidectomy, seizure disorder, GERD, history of GI bleed and urological problems who presented to [facility] emergency department on October 09, 2025 with a chief complaint of altered mental status. Patient was recently discharged from [facility] to [facility] where patient was found to be less interactive not eating well and hence was transferred to [facility] for further evaluation. Patient noted to have hyperammonemia and urinary tract infection for which patient was treated and mentation has improved significantly compared to admission. Patient noted to have systolic murmur in the aortic region, echocardiogram shows moderate to severe aortic stenosis and hence cardiology was consulted to establish care. #Moderate-Severe Aortic Stenosis #Heavy Calcifications of abdominal aorta, left main, Left anterior descending, left circumflex coronary arteries #Pulmonary Artery Hypertension -Patient presents with progressively worsening SOB and generalized weakness. -Patient's home medication includes Furosemide 20mg po 3 times per week. -CT Chest/abd/pelvis wo contract (10/09/2025): showed Heavy abdominal aortic calcification no aneurysmal dilatation, Heavy Calcificaition left main and left anterior descending, and left circumflex coronary arteries, No thoracic aortic aneurysmal dilatation, Main pulmonary artery segment is enlarged 42 mm, Pulmonary artery hypertension, COPD, Cirrhosis, prominent splenomegaly, Significant vascular congestion, Moderate ascites, Thickening of bladder wall (cystitis vs early bladder carcinoma), colonic diverticulosis. -[ECHO (10/10/2025)] showed: 1. There is moderate aortic valve sclerosis with SEVERE AORTIC stenosis and mild regurgitation. V max 4.1 m/s, mean PG 40 mm Hg. 2. Left ventricle size is normal and systolic function is normal. Estimated ejection fraction is 55-60%. There is normal diastolic function. 3. Right ventricle chamber size is mildly enlarged and systolic function is normal. Estimated RVSP is 30 mmHg with RAP 3. Mild HTN. 4. Flattening of the ventricular septum in mid to late systole consistent with right ventricular volume overload. 5. There is mild tricuspid, mitral and pulmonic valve regurgitation. 6. There is mild mitral valve regurgitation. 7. The left atrium is moderately enlarged. The right atrium is normal. 8. Normal IVC with estimated RA pressure 3 mmHg. Plan: -Echocardiogram reviewed, patient does have moderate to severe aortic stenosis, V-max 4.1 m/s, mean pressure gradient 40 mmHg, however patient does have underlying severe comorbidity with liver cirrhosis with significant thrombocytopenia, patient is not established with hepatology outpatient workup completed at [facility]. Patient will also need further workup for bladder wall thickening to rule out malignancy. Also patient noted to have muscle wasting, likely has decreased appetite, poor p.o. intake, competent of protein calorie malnutrition. Cardiology will follow-up outpatient however informed family and patient regarding strict outpatient follow-up for underlying liver cirrhosis and bladder wall thickening, if patient has good prognosis, malignancy is ruled out will proceed with further TAVR workup outpatient -Strict I/O -Keep Mg >2 and K>4 #Acute encephalopathy #Hepatic Encephalopathy #Cirrhosis, unknown etiology of underlying liver disease. #Status post portosystemic stent #UTI, suspected #Seizure Disorder #Hypothyroidism #Pancytopenia #Iron Deficiency Anemia #Colonic diverticulosis #GERD -Management per Primary Hospitalist team Thank you for the consult and allowing to participate in the care of the patient. Cardiology will continue to follow. Case discussed with Attending Physician Dr. Daniel Boogie MD Internal Medicine PGY-2 Disclaimer: This note was dictated by speech recognition. Minor errors in manager general may be present due to voice recognition software. Attending Provider Attestation/Addendum I have personally seen and examined the patient separately on the above date of service and discussed the plan of care with the resident. I reviewed the resident Dr. Landy Boogie consultation progress note and agree with the resident findings and plan in the note above and have also edited the documentation to reflect my findings and plan. Daniel Lockhart M.D. Interventional Cardiology
--- NOTE | 2025-10-12 10:01 | ESPR_ITS ---
Documentation for date of: 10/12/25 Subjective Subjective Interval history: Patient seen at bedside this morning. She is awake, alert, and oriented to person, place, and time (AOx3). Reports feeling well overall. She had no bowel movements this morning but endorses 3 yesterday. Denies nausea, vomiting, abdominal pain, fever, chills, flank pain, dysuria, chest pain, shortness of breath, dizziness, or lightheadedness. She is aware of blood in the Mckenzie bag but denies clots or discomfort. Pending Urology recs on monday. Exam Vital Signs Temp Pulse Resp BP Pulse Ox O2 Del Method 97.2 F 63 16 106/55 L 99 Room Air 10/12/25 08:00 10/12/25 09:53 10/12/25 09:53 10/12/25 08:00 10/12/25 08:00 10/12/25 08:00 Narrative Exam General: Awake, alert, no acute distress HEENT: Normocephalic, atraumatic, PERRL Cardiovascular: Regular rate and rhythm, systolic murmur appreciated Respiratory: Clear to auscultation bilaterally, no respiratory distress Abdomen: Soft, non-tender, mildly distended, bowel sounds present : Mckenzie catheter in place with gross hematuria, no clots noted? Extremities: No edema Neuro: AOx3, normal speech, follows commands, no focal deficits Skin: Warm and dry Objective Labs 10/12/25 12:54 10/12/25 05:16 Labs: Laboratory Results - last 24 hr 10/12/25 05:16 WBC 3.5 L RBC 2.72 L Hgb 8.5 L Hct 24.5 L MCV 90 MCH 31.3 MCHC 34.7 RDW Std Deviation 69.9 H Plt Count 62 L Neut % (Auto) 64 Lymph % (Auto) 23 [place] % (Auto) 9 Eos % (Auto) 2 Baso % (Auto) 1 Neut # (Auto) 2.3 Lymph # (Auto) 0.8 L [place] # (Auto) 0.3 Eos # (Auto) 0.1 Baso # (Auto) 0.0 Immature Gran # (Auto) 0.01 H Absolute Nucleated RBC 0.00 Immature Gran % 0 Nucleated RBC % 0 PT 12.0 INR 1.1 APTT 30.1 Sodium 140 Potassium 4.7 Chloride 111 H Carbon Dioxide 20.5 Anion Gap 9 BUN 23 Creatinine 1.2 Estim Creat Clear Calc 38.7 L eGFR 49 L BUN/Creatinine Ratio 19 Glucose 175 H D Calculated Osmolality 287 Calcium 7.8 L Corrected Calcium 9.1 Phosphorus 1.9 L Magnesium 2.4 Total Bilirubin 1.4 H AST 48 H ALT 26 Alkaline Phosphatase 148 H D Total Protein 5.8 Albumin 2.4 L Globulin 3.4 Albumin/Globulin Ratio 0.7 L Misc Test Result Platelets confirmed ABG Interpretation ABG results: 10/09/25 21:10 VBG pH 7.34 VBG pCO2 40 VBG pO2 49 VBG Base Excess -4 L Quality Measures Quality Measures VTE prophylaxis Advance care planning discussed with:: patient Assessment & Plan Assessment Current Active Medications: Generic Name Dose Route Start Last Admin Trade Name Freq PRN Reason Stop Dose Admin Acetaminophen 650 mg 10/09/25 23:37 Acetaminophen 325 Mg Tablet PO 11/08/25 23:36 Q6H PRN Fever >101.5 or pain 1-3 Ceftriaxone Sodium/Dextrose 1 gm in 50 mls @ 100 mls/hr 10/10/25 09:00 10/12/25 08:41 Rocephin/D5w 1gm Iv Premix IV 10/17/25 08:59 100 mls/hr QDAY RASHEED Administration Lacosamide 100 mg 10/10/25 09:00 10/12/25 08:41 Lacosamide Inj 200 Mg/20 Ml Vial IVP 11/09/25 08:59 100 mg BID RASHEED Administration Lactulose 15 gm 10/10/25 06:00 10/12/25 05:19 Lactulose Syrup 20 Gm/30 Ml Udc PO 11/09/25 05:59 15 gm TID RASHEED Administration Protocol Levetiracetam 1,000 mg 10/10/25 09:00 10/12/25 08:41 Levetiracetam Inj 100 Mg/Ml Vial 5ml IVP 11/09/25 08:59 1,000 mg Q12HR RASHEED Administration Levothyroxine Sodium 100 mcg 10/10/25 06:00 10/12/25 05:20 Levothyroxine Sodium 100 Mcg Tablet PO 11/09/25 05:59 100 mcg ACBR RASHEED Administration Midodrine 10 mg 10/10/25 06:00 10/12/25 05:14 Midodrine 5 Mg Tablet PO 11/09/25 05:59 Not Given TID RASHEED Ondansetron HCl 4 mg 10/09/25 23:37 Ondansetron Inj 2 Mg/Ml Inj 2 Ml IVP 11/08/25 23:36 Q6H PRN NAUSEA OR VOMITING Protocol Pantoprazole Sodium 40 mg 10/10/25 09:00 10/12/25 08:42 Pantoprazole Inj 40 Mg Vial IVP 11/09/25 08:59 40 mg QDAY RASHEED Administration Rifaximin 550 mg 10/10/25 09:00 10/12/25 08:42 Rifaximin 550 Mg Tablet PO 10/17/25 08:59 550 mg BID RASHEED Administration Plan 70-year-old female with 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 Patient is normally able to interactive and was found to not be as interactive, more lethargic, and not eating as much. 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 Patient may be suffering from acute encephalopathy secondary to a urinary tract infection with possible component of hepatic encephalopathy, however the patient has been lactulose and rifaximin at her nursing facility. Patient has decompensated cirrhosis secondary to MASLD, status post TIPS, which increases risk for recurrent hepatic encephalopathy Diagnostic: Urinalysis positive for 131 WBC, 1347 RBC, and leukocyte esterase positive CT head 10/09 negative for acute abnormalities, small old appearing infarct in the left cerebral hemisphere CT chest/abdomen/pelvis 10/09 positive for cirrhosis, prominent hepatomegaly, moderate ascites, colonic diverticulosis and thickening of the bladder wall On admission, AST noted to be 47, ALT 22, and bilirubin 2.1 Ammonia on admission 85 UA grossly positive on admission; patient clinically stable without systemic symptoms. Blood cultures collected 10/09, pending Urine culture collected 10/09, pending 10/11: Mental status now at baseline (AOx3). Persistent hematuria via Mckenzie without clots; CT showed bladder wall thickening, malignancy not excluded. Improving bilirubin 1.6 Lactic acid 1.6, resolved Plan: * Continue lactulose 15 g TID, goal 2?3 BMs/day * Continue rifaximin 550 mg BID * Monitor mental status daily * Continue ceftriaxone 1 g IV daily (started 10/09) * Follow urine and blood cultures * Monitor WBC and vitals * Continue to monitor urine output and appearance * Trend hemoglobin daily * Urology consult pending on monday * Strict I/Os # Severe Aortic Stenosis # Hx CAD s/p stent, over 10 years ago Severe on echo; currently asymptomatic. Plan: * Cardiology consult for further evaluation and outpatient planning * Monitor for chest pain, syncope, or dyspnea # Gross Hematuria # Bladder wall thickeing Ongoing hematuria with thrombocytopenia; no clots. CT on 10/09 shows bladder wall thickening. Plan: * Reassess Mckenzie output today * Trend hemoglobin and platelets daily * Await urology recommendations on Monday # Seizure Disorder Patient does have history of seizures for which she takes Keppra and lacosamide for. Plan: * Continue Keppra 1 g BID and lacosamide 100 mg BID * Seizure precautions * Neuro checks per routine # Hypothyroidism Patient does have history of hypothyroidism for which she takes levothyroxine 75 mcg daily for management outpatient. TSH on admission 13.79 with free T4 0.5 And free T3 0.9 Plan: * Continue levothyroxine 100 mcg daily # Pancytopenia # Iron Deficiency Anemia Chronic, likely multifactorial including cirrhosis and antiepileptics; Hgb stable today. Patient noted to have hemoglobin of 9.8, WBC of 3.5, and platelet of 73 on admission. Possibly secondary to her Keppra and lacosamide as that has been shown to be associated with pancytopenia. Plan: * Continue to monitor CBC * Outpatient hematology follow-up #Colonic diverticulosis As noted on CT chest/abdomen/pelvis 10/09 # GERD Plan: * Continue Protonix 40 mg daily Health maintenance: DVT: SCDs GI: Protonix Diet: Low sodium Code Status: DNR Disposition: Continue MedSurg care; pending urology recommendations ----- Plan discussed with attending physician Dr. Dionna Navarro MD PGY-1 Internal Medicine Attending Provider Attestation/Addendum I have seen and examined the patient. I was physically present for the jaffe portions of the services provided including history, physical exam, diagnosis, treatment plans and orders. I agree with assessment and plan of care as documented by residents. Patient seen and examined at bedside this morning. Appears comfortable and denies new complaints. Hemoglobin noted to be 8.5 this morning, slowly downtrending, we will obtain repeat level in the afternoon. Continues to have gross hematuria, we will monitor closely, awaiting urology recommendations. Vital signs are stable. Noted to have phosphorus of 1.9, repleted accordingly. Awaiting placement. Even though this this note was carefully revised there may still be minor errors in proof machine operator due to voice recognition software. Alyce Villareal MD
[2025-10-12 13:03] LABS: Hematocrit 25.9 % (36.0-46.0); Hemoglobin 8.9 g/dL (12.0-16.0)
--- NOTE | 2025-10-12 15:32 | PC.NURSE ---
PATIENT ALLOWED LABS TO BE DRAWN
--- NOTE | 2025-10-12 16:17 | PC.SS ---
Rounding: Pending urologist consult 10/13, DC plan back to [facility]
[2025-10-13] VITALS (10 sets, daily range): BP systolic 102–122; BP diastolic 50–57; PULSE 66–76; RESP 16–98; TEMP 36.4–36.7; O2SAT 98–99; BMI 24.6; BMI 13.0
[2025-10-13] MEDS: LEVOTHYROXINE SODIUM 100 MCG TABLET PO (05:17)
[2025-10-13] MEDS: LACTULOSE SYRUP 20 GM/30 ML UDC 15 GM PO (05:18)
[2025-10-13 06:43] LABS: Basophils # (Auto) 0.0 Thou/mm3 (0.0-0.2); Basophils % (Auto) 1 % (0-2.5); Eosinophils # (Auto) 0.1 Thou/mm3 (0.0-0.5); Eosinophils % (Auto) 2 % (0-10); Hematocrit 24.0 % (36.0-46.0); Immature Granulocytes Auto 0.01 Thou/mm3 (0.00-0.00); Lymphocytes # (Auto) 0.9 Thou/mm3 (1.0-4.8); Lymphocytes % (Auto) 25 % (10-50); Mean Corpuscular HGB Conc 33.8 g/dl (31.0-37.0); Mean Corpuscular Hemoglobin 30.8 pg (25.0-35.0); Mean Corpuscular Volume 91 fL (80-100); Monocytes # (Auto) 0.3 Thou/mm3 (0.0-0.8); Monocytes % (Auto) 8 % (0-12); Neutrophils # (Auto) 2.2 Thou/mm3 (1.8-7.7); Neutrophils % (Auto) 64 % (37-80); Nucleated Red Blood Cell # 0.00 Thou/mm3 (0.00-0.00); Nucleated Red Blood Cell % 0 /100 WBC (0); RDW Standard Deviation 70.9 fL (36.4-46.3); Red Blood Count 2.63 Miln/mm3 (4.00-5.20); White Blood Count 3.5 Thou/mm3 (3.6-11.0)
[2025-10-13 06:46] LABS: Hemoglobin 8.1 g/dL (12.0-16.0); Platelet Count 57 Thou/mm3 (140-440)
[2025-10-13 06:55] LABS: INR 1.1 (0.9-1.3); Partial Thromboplastin Time 29.9 Seconds (22.0-36.0); Prothrombin Time 11.9 Seconds (9.0-12.2)
[2025-10-13 07:18] LABS: Slide Review Platelets confirmed
[2025-10-13 07:28] LABS: Alanine Aminotransferase 29 U/L (10-49); Albumin, Serum 2.6 gm/dL (3.4-4.8); Albumin/Globulin Ratio 0.8 (1.2-2.2); Alkaline Phosphatase 135 U/L (46-116); Anion Gap 6 (7-16); Aspartate Amino Transferase 49 U/L (0-34); BUN/Creatinine Ratio 20 Ratio (12-20); Bilirubin,Total 1.6 mg/dL (0.3-1.2); Blood Urea Nitrogen 22 mg/dL (9-23); Calcium 8.0 mg/dL (8.3-10.6); Calcium (Corrected) 9.1 mg/dL (8.5-10.1); Carbon Dioxide 23.6 mMol/L (20.0-31.0); Chloride 108 mMol/L (98-107); Creatinine (Component) 1.1 mg/dL (0.6-1.3); Estimated Creatinine Clearance 42.3 mL/min (>60); Globulin 3.4 gm/dL (2.3-3.5); Glucose 144 mg/dL (74-106); Magnesium 2.0 mg/dL (1.6-2.6); Osmolality,Calculated 281 (275-295); Phosphorous 2.1 mg/dL (2.4-5.1); Potassium 5.0 mMol/L (3.4-5.1); Sodium 138 mMol/L (136-145); Total Protein 6.0 gm/dL (5.7-8.2); eGFR 55 See Note
[2025-10-13] MEDS: cefTRIAXone/D5w 1gm IV premix 1 GM/50 ML BAG IV (08:28)
[2025-10-13] MEDS: LACOSAMIDE INJ 200 MG/20 ML VIAL 100 MG IVP ×2 (08:28→21:53)
[2025-10-13] MEDS: levETIRAcetam INJ 100 MG/ML VIAL 5ML 1000 MG IVP (08:29)
[2025-10-13] MEDS: NAPH,KPH MBDB 1 PACKET (1.5 GM) PO (10:06)
--- NOTE | 2025-10-13 10:14 | ESPR_ITS ---
<Statement entered by Clemente Jamil MD - 10/23/25 08:25> I reviewed above note and agree with findings and plans. I have also personally examined the patient with medicine team and went over assessment and plan with medical team including international specialist and resident physician. <Statement entered by Babak Coulter MD - 10/13/25 18:54> Patient was examined and case was reviewed with team including attending physician. Note reviewed, I agree with most of its contents and agree with the patient's care as documented by Dr. Navarro Patient seen today at the bedside found awake, alert, orientedx3. No overnight events reported. Vital signs and labs reviewed. Patient with adequate bowel movements and mentation as baseline. Hematuria has improved significantly. Currently pending urology recommendations. Case discussed with my attending Dr. Omero Couletr MD PGY-2 Documentation for date of: 10/13/25 Subjective Subjective Interval history: Patient seen at bedside this morning. She reports no complaints and states she is feeling well. She was observed eating breakfast and tolerating oral intake. Denies confusion, dizziness, chest pain, shortness of breath, abdominal pain, nausea, vomiting, dysuria, flank pain, or fever. Reports 2 bowel movements in the last 24 hours. Exam Vital Signs Temp Pulse Resp BP Pulse Ox O2 Del Method 97.6 F 67 18 120/52 L 99 Room Air 10/13/25 08:00 10/13/25 08:00 10/13/25 08:00 10/13/25 08:00 10/13/25 08:00 10/13/25 08:00 Narrative Exam General: Awake, alert, no acute distress HEENT: Normocephalic, atraumatic, PERRL Cardiovascular: Regular rate and rhythm, systolic murmur appreciated Respiratory: Clear to auscultation bilaterally, no respiratory distress Abdomen: Soft, non-tender, mildly distended, bowel sounds present : Mckenize catheter in place; urine orange-tinged, improved from prior blood-red appearance, no clots noted Extremities: No edema Neuro: AOx3, normal speech, follows commands, no focal deficits Skin: Warm and dry Objective Labs 10/13/25 06:08 10/13/25 06:08 Labs: Laboratory Results - last 24 hr 10/12/25 10/13/25 12:54 06:08 WBC 3.5 L RBC 2.63 L Hgb 8.9 L 8.1 L Hct 25.9 L 24.0 L MCV 91 MCH 30.8 MCHC 33.8 RDW Std Deviation 70.9 H Plt Count 57 L Neut % (Auto) 64 Lymph % (Auto) 25 [place] % (Auto) 8 Eos % (Auto) 2 Baso % (Auto) 1 Neut # (Auto) 2.2 Lymph # (Auto) 0.9 L [place] # (Auto) 0.3 Eos # (Auto) 0.1 Baso # (Auto) 0.0 Immature Gran # (Auto) 0.01 H Absolute Nucleated RBC 0.00 Immature Gran % 0 Nucleated RBC % 0 PT 11.9 INR 1.1 APTT 29.9 Sodium 138 Potassium 5.0 Chloride 108 H Carbon Dioxide 23.6 Anion Gap 6 L BUN 22 Creatinine 1.1 Estim Creat Clear Calc 42.3 L eGFR 55 L BUN/Creatinine Ratio 20 Glucose 144 H Calculated Osmolality 281 Calcium 8.0 L Corrected Calcium 9.1 Phosphorus 2.1 L Magnesium 2.0 Total Bilirubin 1.6 H AST 49 H ALT 29 Alkaline Phosphatase 135 H Total Protein 6.0 Albumin 2.6 L Globulin 3.4 Albumin/Globulin Ratio 0.8 L Misc Test Result Platelets confirmed ABG Interpretation ABG results: 10/09/25 21:10 VBG pH 7.34 VBG pCO2 40 VBG pO2 49 VBG Base Excess -4 L Quality Measures Quality Measures VTE prophylaxis Advance care planning discussed with:: patient Assessment & Plan Assessment Current Active Medications: Generic Name Dose Route Start Last Admin Trade Name Freq PRN Reason Stop Dose Admin Acetaminophen 650 mg 10/09/25 23:37 Acetaminophen 325 Mg Tablet PO 11/08/25 23:36 Q6H PRN Fever >101.5 or pain 1-3 Ceftriaxone Sodium/Dextrose 1 gm in 50 mls @ 100 mls/hr 10/10/25 09:00 10/13/25 08:28 Rocephin/D5w 1gm Iv Premix IV 10/17/25 08:59 100 mls/hr QDAY RASHEED Administration Lacosamide 100 mg 10/10/25 09:00 10/13/25 08:28 Lacosamide Inj 200 Mg/20 Ml Vial IVP 11/09/25 08:59 100 mg BID RASHEED Administration Lactulose 20 gm 10/13/25 14:00 Lactulose Syrup 20 Gm/30 Ml Udc PO 11/12/25 13:59 TID RASHEED Protocol Levetiracetam 1,000 mg 10/10/25 09:00 10/13/25 08:29 Levetiracetam Inj 100 Mg/Ml Vial 5ml IVP 11/09/25 08:59 1,000 mg Q12HR RASHEED Administration Levothyroxine Sodium 100 mcg 10/10/25 06:00 10/13/25 05:17 Levothyroxine Sodium 100 Mcg Tablet PO 11/09/25 05:59 100 mcg ACBR RASHEED Administration Midodrine 10 mg 10/10/25 06:00 10/13/25 05:15 Midodrine 5 Mg Tablet PO 11/09/25 05:59 Not Given TID RASHEED Ondansetron HCl 4 mg 10/09/25 23:37 Ondansetron Inj 2 Mg/Ml Inj 2 Ml IVP 11/08/25 23:36 Q6H PRN NAUSEA OR VOMITING Protocol Pantoprazole Sodium 40 mg 10/10/25 09:00 10/13/25 08:30 Pantoprazole Inj 40 Mg Vial IVP 11/09/25 08:59 40 mg QDAY RASHEED Administration Rifaximin 550 mg 10/10/25 09:00 10/13/25 08:30 Rifaximin 550 Mg Tablet PO 10/17/25 08:59 550 mg BID RASHEED Administration Plan 70-year-old female with 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 Patient is normally able to interactive and was found to not be as interactive, more lethargic, and not eating as much. 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 Patient may be suffering from acute encephalopathy secondary to a urinary tract infection with possible component of hepatic encephalopathy, however the patient has been lactulose and rifaximin at her nursing facility. Patient has decompensated cirrhosis secondary to MASLD, status post TIPS, which increases risk for recurrent hepatic encephalopathy Diagnostic: Urinalysis positive for 131 WBC, 1347 RBC, and leukocyte esterase positive CT head 10/09 negative for acute abnormalities, small old appearing infarct in the left cerebral hemisphere CT chest/abdomen/pelvis 10/09 positive for cirrhosis, prominent hepatomegaly, moderate ascites, colonic diverticulosis and thickening of the bladder wall On admission, AST noted to be 47, ALT 22, and bilirubin 2.1 Ammonia on admission 85 UA grossly positive on admission; patient clinically stable without systemic symptoms. Blood cultures collected 10/09, pending Urine culture collected 10/09, pending 10/11: Mental status now at baseline (AOx3). Persistent hematuria via Mckenzie without clots; CT showed bladder wall thickening, malignancy not excluded. Improving bilirubin 1.6 Lactic acid 1.6, resolved 10/13: Mental status at baseline; only 2 BMs in last 24 hours. Plan: * Increase lactulose to 20 g TID (goal 3-4 BMs/day) * Continue rifaximin 550 mg BID * Monitor mental status daily * Continue ceftriaxone 1 g IV daily (started 10/09) * Follow urine and blood cultures * Monitor WBC and vitals * Continue to monitor urine output and appearance * Trend hemoglobin daily * Urology consult pending, today * Strict I/Os # Severe Aortic Stenosis # Hx CAD s/p stent, over 10 years ago Severe on echo; currently asymptomatic. Plan: * Cardiology consult for further evaluation and outpatient planning * Monitor for chest pain, syncope, or dyspnea # Gross Hematuria # Bladder wall thickeing Ongoing hematuria with thrombocytopenia; no clots. CT on 10/09 shows bladder wall thickening. Urine now orange-tinged rather than melyssa blood; cultures negative. Plan: * Continue to monitor Mckenzie output and color * Trend hemoglobin daily * Await urology evaluation today # Seizure Disorder Patient does have history of seizures for which she takes Keppra and lacosamide for. Plan: * Continue Keppra 1 g BID and lacosamide 100 mg BID * Seizure precautions * Neuro checks per routine # Hypothyroidism Patient does have history of hypothyroidism for which she takes levothyroxine 75 mcg daily for management outpatient. TSH on admission 13.79 with free T4 0.5 And free T3 0.9 Plan: * Continue levothyroxine 100 mcg daily # Pancytopenia # Iron Deficiency Anemia Chronic, likely multifactorial including cirrhosis and antiepileptics; Hgb stable today. Patient noted to have hemoglobin of 9.8, WBC of 3.5, and platelet of 73 on admission. Possibly secondary to her Keppra and lacosamide as that has been shown to be associated with pancytopenia. Plan: * Continue to monitor CBC * Outpatient hematology follow-up #Colonic diverticulosis As noted on CT chest/abdomen/pelvis 10/09 # GERD Plan: * Continue Protonix 40 mg daily Health maintenance: DVT: SCDs GI: Protonix Diet: Low sodium Code Status: DNR Disposition: Continue MedSur care; pending urology recommendations ----- Plan discussed with attending physician Dr. Jamil and senior resident Dr. Vernon Navarro MD PGY-1 Internal Medicine
--- NOTE | 2025-10-13 13:21 | PC.SS ---
SS sent updated clinicals with PT notes to [facility], as Jennifer informed SS that pt will need auth upon DC
[2025-10-13] MEDS: LACTULOSE SYRUP 20 GM/30 ML UDC PO ×2 (14:24→21:53)
--- NOTE | 2025-10-13 15:19 | PC.SS ---
Rounding: Pending urology consult reccs
--- NOTE | 2025-10-13 16:35 | PC.NURSE ---
Gardenia from [facility] Delivered requested patient file, made aware.
--- NOTE | 2025-10-13 18:33 | ESPR_ITS ---
<Statement entered by Landy Boogie MD - 10/13/25 18:59> Patient was seen and examined by me personally. I have reviewed the below documentation by the team resident and agree with its findings. 70-year-old female with past medical history of decompensated cirrhosis, secondary to unknown cause status post portosystemic stent at [facility], hypothyroidism status post thyroidectomy, seizure disorder, GERD, history of GI bleed and urological problems who presented to [facility] emergency department on October 09, 2025 with a chief complaint of altered mental status. Patient was recently discharged from [facility] to [facility] where patient was found to be less interactive not eating well and hence was transferred to [facility] for further evaluation. Patient noted to have hyperammonemia and urinary tract infection for which patient was treated and mentation has improved significantly compared to admission. Patient noted to have systolic murmur in the aortic region, echocardiogram shows moderate to severe aortic stenosis and hence cardiology was consulted to establish care. Echocardiogram reviewed, patient does have moderate to severe aortic stenosis, V-max 4.1 m/s, mean pressure gradient 70 mmHg, however patient does have underlying severe comorbidity with liver cirrhosis with significant thrombocytopenia, patient is not established with hepatology outpatient outpatient workup completed at [facility]. Patient will also need further workup for bladder wall thickening to rule out malignancy. Also patient noted to have muscle wasting, likely has decreased appetite, poor p.o. intake, competent of protein calorie malnutrition. Cardiology will follow-up outpatient however informed family and patient regarding strict outpatient follow-up for underlying liver cirrhosis and bladder wall thickening, if patient has good prognosis, malignancy is ruled out will proceed with further TAVR workup outpatient. 10/13/25: Patient seen at bedside more alert today, will be seen by urology today. Denies any chest pain shortness of breath or any concerns from cardiac standpoint. Thank you for the consult and allowing to participate in the care of the patient. Cardiology will continue to follow. Case discussed with Attending Physician Dr. Daniel Boogie MD Internal Medicine PGY-2 Disclaimer: This note was dictated by speech recognition. Minor errors in automatic trimming sewer may be present due to voice recognition software.e Documentation for date of: 10/13/25 Subjective Subjective Interval history: Ms. Ofelia Irvin is 71yF with PMH of decompensated cirrhosis, secondary to unknown cause status post portosystemic stent at [facility], hypothyroidism status post thyroidectomy, seizure disorder, GERD, history of GI bleed, iron deficiency anemia and urological problems who presented to the ED on 10/09/2025, from [facility] due to altered mental status. She experienced worsening generalized weakness and shortness of breathe, with intermittent palpation. She also has experienced increasing weakness leading to recurrent near-falls. MOreover, patient started to see visual hallucinations for a prolonged period, describing seeing individuals she initially believes to be her grandchildren, though they are not present. Patient was admitted for management of acute encephalopathy. Cardiology was consulted due to her Moderate-Servere Aortic Stenosis from ECHO (10/10/2025). ED course: Vitals: Temp: 97.9F, SD:56, RR:18, BP:134/55, O2sat: 95% on RA Labs: WBC: 3.5, Hgb: 9.8, Plt:73, PT: 13.0, eGFR:55, Glucose: 127, HbA1c: 4.8, Lactic acid:2.6, T.Bili: 2.1, Direct bili:1.0, Ammonia: 85, Troponin: <0.02, BNP: 191, Total protein: 6.2, Albumin: 2.7, TSH: 13.79, Free T4: 0.5, Free T3: 0.9 UA: Urine blood: 3+, Urine RBC: 1347, Urine WBC: 131, Urine Bacteria: none, Urine Yeast: Present CT Chest/abd/pelvis wo contract (10/09/2025): showed Heavy abdominal aortic calcification no aneurysmal dilatation, Heavy Calcificaition left main and left anterior descending left circumflex coronary arteries, No thoracic aortic aneurysmal dilatation, Main pulmonary artery segment is enlarged 42 mm, Pulmonary artery hypertension, COPD, Cirrhosis, prominent splenomegaly, Significant vascular congestion, Moderate ascites, Thickening of bladder wall (cystitis vs early bladder carcinoma), coloninc diverticulosis. In ED, patient was given Fluconazole IV 200mg x1, Ondansetrol IV 4 mg x1, IV bolus LR 1L x1, Ceftriaxone 1g IV x1. Medical history: As stated above Surgical history: Cholecystectomy, Thyroid surgeries Allergies: NKDA Medications: Furosemide 20mg 3 times per week, Lacosamide 100mg po bid, Lactulose 10g po bid, Keppra 1000mg po bid, LEvothyroxine 75mcg po qd, Midodrine 10mg po tid, Protonix 40mg po qd, Pramipexole 0.5mg po qd, Rifaximin 550 mg po bid, Magnesium hydroxide 400mg po prn, Dulcolax 10mg SD qd prn, Family history: Mother had Gastric cancer, Social history: Denies smoking cigarettes, drinking alcohol or using other illicit drugs. Used to drink 3 cups of coffee. 10/11/2025: The patient has severe aortic stenosis with extensive vascular and coronary calcification in the setting of advanced cirrhosis (MELD-Na score 12, Child-Louie score 11, class C). Given the severity of hepatic dysfunction, the patient is at markedly increased julio-procedural risk. TAVR can be possible, but require more careful evaluation with consideration of overall prognosis and goals of care. Patient's current code status is DNR. Based on lab result and patient's status on admission 10/09, MELD-Na score: 12, <2% estimated 90 day mortality, Child-Louie Score: 11 points, Child Class C, Life Expectancy 1-3 yrs, Abdominal Surgery julio-operative mortality 82% 10/12/2025: Patient seen examined at bedside, no current complaints. Patient is more alert compared to yesterday. Labs and vitals reviewed, platelet count stable at 62,000, hemoglobin 8.9. 10/13/2025: No Overnight events. Labs reviewed and patient examined at the bedside. Patient denies any chest pain, SOB, or palpation. Patient was again notified, there needs to be improvement in her liver cirrhosis and cancer ruled out for the bladder thickening seen on imaging, to proceed with outpatient workup for possible TAVR. Exam Vital Signs Temp Pulse Resp BP Pulse Ox O2 Del Method 97.5 F 69 17 102/50 L 99 Room Air 10/13/25 16:00 10/13/25 16:00 10/13/25 16:00 10/13/25 16:00 10/13/25 16:00 10/13/25 16:00 Narrative Exam General: No acute distress, well nourished, AAO x2, Elderly, Frail Eye: Normal conjunctiva, no scleral icterus HENT: Normocephalic, atraumatic, hearing intact to conversation at normal volume, moist oral mucosa Lungs: Non-labored respirations, symmetric chest rise, Clear to auscultate bilaterally, No wheezing, rhonchi, crackles Heart: Peripheral pulses intact bilaterally, Regular Rate and Rhythm. Harsh systolic murmur 6/6 aortic region, bounding carotid pulse. Abdomen: Soft, non-tender, non-distended, no palpable masses Musculoskeletal: Normal range of motion and strength, No cyanosis or edema, No visible joint swelling Skin: Skin is warm, dry, no rashes or lesions. Psychiatric: Cooperative, appropriate mood and affect, Awake and alert, not agitated Neuro: Cranial nerves II-XII grossly intact. Strength 5/5 throughout. Sensations intact to light touch. Objective Labs 10/13/25 06:08 10/13/25 06:08 Labs: Laboratory Results - last 24 hr 10/13/25 06:08 WBC 3.5 L RBC 2.63 L Hgb 8.1 L Hct 24.0 L MCV 91 MCH 30.8 MCHC 33.8 RDW Std Deviation 70.9 H Plt Count 57 L Neut % (Auto) 64 Lymph % (Auto) 25 Boone % (Auto) 8 Eos % (Auto) 2 Baso % (Auto) 1 Neut # (Auto) 2.2 Lymph # (Auto) 0.9 L Boone # (Auto) 0.3 Eos # (Auto) 0.1 Baso # (Auto) 0.0 Immature Gran # (Auto) 0.01 H Absolute Nucleated RBC 0.00 Immature Gran % 0 Nucleated RBC % 0 PT 11.9 INR 1.1 APTT 29.9 Sodium 138 Potassium 5.0 Chloride 108 H Carbon Dioxide 23.6 Anion Gap 6 L BUN 22 Creatinine 1.1 Estim Creat Clear Calc 42.3 L eGFR 55 L BUN/Creatinine Ratio 20 Glucose 144 H Calculated Osmolality 281 Calcium 8.0 L Corrected Calcium 9.1 Phosphorus 2.1 L Magnesium 2.0 Total Bilirubin 1.6 H AST 49 H ALT 29 Alkaline Phosphatase 135 H Total Protein 6.0 Albumin 2.6 L Globulin 3.4 Albumin/Globulin Ratio 0.8 L Misc Test Result Platelets confirmed ABG Interpretation ABG results: 10/09/25 21:10 VBG pH 7.34 VBG pCO2 40 VBG pO2 49 VBG Base Excess -4 L Quality Measures Quality Measures VTE prophylaxis Advance care planning discussed with:: patient and other Assessment & Plan Assessment Current Active Medications: Generic Name Dose Route Start Last Admin Trade Name Freq PRN Reason Stop Dose Admin Acetaminophen 650 mg 10/09/25 23:37 Acetaminophen 325 Mg Tablet PO 11/08/25 23:36 Q6H PRN Fever >101.5 or pain 1-3 Ceftriaxone Sodium/Dextrose 1 gm in 50 mls @ 100 mls/hr 10/10/25 09:00 10/13/25 08:28 Rocephin/D5w 1gm Iv Premix IV 10/17/25 08:59 100 mls/hr QDAY RASHEED Administration Lacosamide 100 mg 10/10/25 09:00 10/13/25 08:28 Lacosamide Inj 200 Mg/20 Ml Vial IVP 11/09/25 08:59 100 mg BID RASHEED Administration Lactulose 20 gm 10/13/25 14:00 10/13/25 14:24 Lactulose Syrup 20 Gm/30 Ml Udc PO 11/12/25 13:59 20 gm TID RASHEED Administration Protocol Levetiracetam 1,000 mg 10/13/25 21:00 Levetiracetam 250 Mg Tablet PO 11/09/25 08:59 Q12HR RASHEED Levothyroxine Sodium 100 mcg 10/10/25 06:00 10/13/25 05:17 Levothyroxine Sodium 100 Mcg Tablet PO 11/09/25 05:59 100 mcg ACBR RASHEED Administration Midodrine 10 mg 10/10/25 06:00 10/13/25 14:15 Midodrine 5 Mg Tablet PO 11/09/25 05:59 Not Given TID RASHEED Ondansetron HCl 4 mg 10/09/25 23:37 Ondansetron Inj 2 Mg/Ml Inj 2 Ml IVP 11/08/25 23:36 Q6H PRN NAUSEA OR VOMITING Protocol Pantoprazole Sodium 40 mg 10/10/25 09:00 10/13/25 08:30 Pantoprazole Inj 40 Mg Vial IVP 11/09/25 08:59 40 mg QDAY RASHEED Administration Rifaximin 550 mg 10/10/25 09:00 10/13/25 08:30 Rifaximin 550 Mg Tablet PO 10/17/25 08:59 550 mg BID RASHEED Administration Plan Ms. Ofelia Irvin is a 70-year-old female with past medical history of decompensated cirrhosis, secondary to unknown cause status post portosystemic stent at [facility], hypothyroidism status post thyroidectomy, seizure disorder, GERD, history of GI bleed and urological problems who presented to [facility] emergency department on October 09, 2025 with a chief complaint of altered mental status. Patient was recently discharged from [facility] to [facility] where patient was found to be less interactive not eating well and hence was transferred to [facility] for further evaluation. Patient noted to have hyperammonemia and urinary tract infection for which patient was treated and mentation has improved significantly compared to admission. Patient noted to have systolic murmur in the aortic region, echocardiogram shows moderate to severe aortic stenosis and hence cardiology was consulted to establish care. #Moderate-Severe Aortic Stenosis #Heavy Calcifications of abdominal aorta, left main, Left anterior descending, left circumflex coronary arteries #Pulmonary Artery Hypertension -Patient presents with progressively worsening SOB and generalized weakness. -Patient's home medication includes Furosemide 20mg po 3 times per week. -CT Chest/abd/pelvis wo contract (10/09/2025): showed Heavy abdominal aortic calcification no aneurysmal dilatation, Heavy Calcificaition left main and left anterior descending, and left circumflex coronary arteries, No thoracic aortic aneurysmal dilatation, Main pulmonary artery segment is enlarged 42 mm, Pulmonary artery hypertension, COPD, Cirrhosis, prominent splenomegaly, Significant vascular congestion, Moderate ascites, Thickening of bladder wall (cystitis vs early bladder carcinoma), colonic diverticulosis. -[ECHO (10/10/2025)] showed: 1. There is moderate aortic valve sclerosis with SEVERE AORTIC stenosis and mild regurgitation. V max 4.1 m/s, mean PG 40 mm Hg. 2. Left ventricle size is normal and systolic function is normal. Estimated ejection fraction is 55-60%. There is normal diastolic function. 3. Right ventricle chamber size is mildly enlarged and systolic function is normal. Estimated RVSP is 30 mmHg with RAP 3. Mild HTN. 4. Flattening of the ventricular septum in mid to late systole consistent with right ventricular volume overload. 5. There is mild tricuspid, mitral and pulmonic valve regurgitation. 6. There is mild mitral valve regurgitation. 7. The left atrium is moderately enlarged. The right atrium is normal. 8. Normal IVC with estimated RA pressure 3 mmHg. Plan: -Echocardiogram reviewed, patient does have moderate to severe aortic stenosis, V-max 4.1 m/s, mean pressure gradient 40 mmHg, however patient does have underlying severe comorbidity with liver cirrhosis with significant thrombocytopenia, patient is not established with hepatology outpatient workup completed at [facility]. Patient will also need further workup for bladder wall thickening to rule out malignancy. Also patient noted to have muscle wasting, likely has decreased appetite, poor p.o. intake, competent of protein calorie malnutrition. Cardiology will follow-up outpatient however informed family and patient regarding strict outpatient follow-up for underlying liver cirrhosis and bladder wall thickening, if patient has good prognosis, malignancy is ruled out will proceed with further TAVR workup outpatient -Strict I/O -Keep Mg >2 and K>4 #Acute encephalopathy #Hepatic Encephalopathy #Cirrhosis, unknown etiology of underlying liver disease. #Status post portosystemic stent #UTI, suspected #Seizure Disorder #Hypothyroidism #Pancytopenia #Iron Deficiency Anemia #Colonic diverticulosis #GERD -Management per Primary Hospitalist team Thank you for the consult and allowing to participate in the care of the patient. Cardiology will continue to follow. Assessment and plan discussed with my attending physician Dr. Chantelle Vilal (PGY-1) - Internal medicine resident Attending Provider Attestation/Addendum I have personally seen and examined the patient separately on the above date of service and discussed the plan of care with the resident. I reviewed the resident Dr. Dangleo Villa / Landy Boogie consultation progress note and agree with the resident findings and plan in the note above and have also edited the documentation to reflect my findings and plan. Daniel Lockhrat M.D. Interventional Cardiology
--- NOTE | 2025-10-13 20:31 | ESCONSULT_ITS ---
RE: YASEMIN VORA : 1955 DATE OF CONSULTATION: 10/13/2025 CHIEF COMPLAINT: 1. Gross hematuria. 2. Thickened bladder wall on CT scan of the abdomen and pelvis. COMORBID CONDITIONS: 1. Iron deficiency anemia. 2. Hypertension. 3. Seizure disorder. 4. Cirrhosis of the liver. 5. GERD. 6. Hypothyroidism. HISTORY OF PRESENT ILLNESS: This is a 70-year-old female, who came to the emergency room with the altered mental status. She was admitted in the hospital for management of acute encephalopathy. The patient had a placement of Mckenzie catheter and there was gross hematuria. About 4 days ago, this patient was complaining of generalized weakness in the intermediate. She is not a smoker. She is exposed to secondhand smoking. Nobody in the family has history of bladder cancers. The patient denies any history of urinary tract infection. She had some kind of bladder procedure done surgically and she does not know what was done, where, and how long ago. In the emergency room, blood pressure was 134/55, heart rate 56, WBC 3.5, hemoglobin 9.8, platelet 73. BUN is 14, creatinine is 1.1. Urine is negative for an infection. PAST MEDICAL HISTORY, FAMILY HISTORY, REVIEW OF SYSTEMS: Please refer to patient history form dated 10/09/2025. It is in HPI, in EMR. PHYSICAL EXAMINATION: GENERAL: Condition is satisfactory. The patient is not in acute distress. SKIN: Warm and dry. HEENT: Normocephalic, atraumatic. Eyes: No anemia or jaundice. NECK: Supple. Trachea is central. Thyroid is not enlarged. EXTREMITIES: Revealed no edema, cyanosis, or clubbing. VITAL SIGNS: Stable. They are in HPI, in EMR. CAT scan of the abdomen and pelvis was done. This revealed positive for cirrhosis, prominent hepatomegaly, moderate ascites, and thickened bladder wall. DIAGNOSES: 1. Acute encephalopathy. 2. Hepatic encephalopathy. 3. UTI. 4. Liver cirrhosis. 5. Hyperammonemia. RECOMMENDATION: The patient has indwelling Mckenzie catheter. Urine is almost clear. When the patient is discharged, she is going to be scheduled for cystoscopic examination on the outpatient basis through my office. I will provide her with the appointment. DT: 13:36:16 TT: 20:30:00 Ref: [id number] - TID: [id number]
[2025-10-14] VITALS (9 sets, daily range): BP systolic 103–119; BP diastolic 49–56; PULSE 51–76; RESP 16–18; TEMP 36.6–36.9; O2SAT 95–99
[2025-10-14] MEDS: LEVOTHYROXINE SODIUM 100 MCG TABLET PO (05:30)
[2025-10-14] MEDS: LACTULOSE SYRUP 20 GM/30 ML UDC PO ×2 (05:30→15:40)
[2025-10-14 05:49] LABS: Basophils # (Auto) 0.0 Thou/mm3 (0.0-0.2); Basophils % (Auto) 1 % (0-2.5); Eosinophils # (Auto) 0.1 Thou/mm3 (0.0-0.5); Eosinophils % (Auto) 2 % (0-10); Hematocrit 23.1 % (36.0-46.0); Immature Granulocytes Auto 0.02 Thou/mm3 (0.00-0.00); Lymphocytes # (Auto) 0.8 Thou/mm3 (1.0-4.8); Lymphocytes % (Auto) 23 % (10-50); Mean Corpuscular HGB Conc 34.2 g/dl (31.0-37.0); Mean Corpuscular Hemoglobin 31.5 pg (25.0-35.0); Mean Corpuscular Volume 92 fL (80-100); Monocytes # (Auto) 0.3 Thou/mm3 (0.0-0.8); Monocytes % (Auto) 9 % (0-12); Neutrophils # (Auto) 2.3 Thou/mm3 (1.8-7.7); Neutrophils % (Auto) 66 % (37-80); Nucleated Red Blood Cell # 0.00 Thou/mm3 (0.00-0.00); Nucleated Red Blood Cell % 0 /100 WBC (0); RDW Standard Deviation 71.2 fL (36.4-46.3); Red Blood Count 2.51 Miln/mm3 (4.00-5.20); White Blood Count 3.5 Thou/mm3 (3.6-11.0)
[2025-10-14 06:22] LABS: INR 1.1 (0.9-1.3); Partial Thromboplastin Time 29.2 Seconds (22.0-36.0); Prothrombin Time 11.8 Seconds (9.0-12.2)
[2025-10-14 06:29] LABS: Alanine Aminotransferase 31 U/L (10-49); Albumin, Serum 2.4 gm/dL (3.4-4.8); Albumin/Globulin Ratio 0.7 (1.2-2.2); Alkaline Phosphatase 158 U/L (46-116); Anion Gap 4 (7-16); Aspartate Amino Transferase 57 U/L (0-34); BUN/Creatinine Ratio 19 Ratio (12-20); Bilirubin,Total 1.3 mg/dL (0.3-1.2); Blood Urea Nitrogen 23 mg/dL (9-23); Calcium 8.1 mg/dL (8.3-10.6); Calcium (Corrected) 9.4 mg/dL (8.5-10.1); Carbon Dioxide 24.3 mMol/L (20.0-31.0); Chloride 110 mMol/L (98-107); Creatinine (Component) 1.2 mg/dL (0.6-1.3); Estimated Creatinine Clearance 38.7 mL/min (>60); Globulin 3.4 gm/dL (2.3-3.5); Glucose 168 mg/dL (74-106); Magnesium 2.0 mg/dL (1.6-2.6); Osmolality,Calculated 283 (275-295); Phosphorous 2.4 mg/dL (2.4-5.1); Potassium 5.0 mMol/L (3.4-5.1); Sodium 138 mMol/L (136-145); Total Protein 5.8 gm/dL (5.7-8.2); eGFR 49 See Note
[2025-10-14 06:32] LABS: Hemoglobin 7.9 g/dL (12.0-16.0); Platelet Count 58 Thou/mm3 (140-440)
--- NOTE | 2025-10-14 08:11 | PD.RESPRO ---
Documentation for date of: 10/14/25 Subjective Subjective Interval history: Patient seen and examined at bedside, no chest pain, shortness of breath or other cardiac symptoms. Patient is more alert today, was seen by urology yesterday, will be scheduled for cystoscopy outpatient. Explained to the patient that she needs to follow-up with hepatology and urology primarily and then follow-up with cardiology outpatient for further TAVR workup. Verbalized understanding. Exam Vital Signs Temp Pulse Resp BP Pulse Ox O2 Del Method 98.1 F 76 16 115/54 L 96 Room Air 10/14/25 04:00 10/14/25 05:30 10/14/25 04:00 10/14/25 05:30 10/14/25 04:00 10/14/25 04:00 Narrative Exam General: No acute distress, well nourished, AAO x2, Elderly, Frail Eye: Normal conjunctiva, no scleral icterus HENT: Normocephalic, atraumatic, hearing intact to conversation at normal volume, moist oral mucosa Lungs: Non-labored respirations, symmetric chest rise, Clear to auscultate bilaterally, No wheezing, rhonchi, crackles Heart: Peripheral pulses intact bilaterally, Regular Rate and Rhythm. Harsh systolic murmur 6/6 aortic region, bounding carotid pulse. Abdomen: Soft, non-tender, non-distended, no palpable masses Musculoskeletal: Normal range of motion and strength, No cyanosis or edema, No visible joint swelling Skin: Skin is warm, dry, no rashes or lesions. Psychiatric: Cooperative, appropriate mood and affect, Awake and alert, not agitated Neuro: Cranial nerves II-XII grossly intact. Strength 5/5 throughout. Sensations intact to light touch. Objective Labs 10/14/25 11:15 10/14/25 04:25 Labs: Laboratory Results - last 24 hr 10/14/25 04:25 WBC 3.5 L RBC 2.51 L Hgb 7.9 L Hct 23.1 L MCV 92 MCH 31.5 MCHC 34.2 RDW Std Deviation 71.2 H Plt Count 58 L Neut % (Auto) 66 Lymph % (Auto) 23 [place] % (Auto) 9 Eos % (Auto) 2 Baso % (Auto) 1 Neut # (Auto) 2.3 Lymph # (Auto) 0.8 L [place] # (Auto) 0.3 Eos # (Auto) 0.1 Baso # (Auto) 0.0 Immature Gran # (Auto) 0.02 H Absolute Nucleated RBC 0.00 Immature Gran % 1 H Nucleated RBC % 0 PT 11.8 INR 1.1 APTT 29.2 Sodium 138 Potassium 5.0 Chloride 110 H Carbon Dioxide 24.3 Anion Gap 4 L BUN 23 Creatinine 1.2 Estim Creat Clear Calc 38.7 L eGFR 49 L BUN/Creatinine Ratio 19 Glucose 168 H Calculated Osmolality 283 Calcium 8.1 L Corrected Calcium 9.4 Phosphorus 2.4 Magnesium 2.0 Total Bilirubin 1.3 H AST 57 H ALT 31 Alkaline Phosphatase 158 H D Total Protein 5.8 Albumin 2.4 L Globulin 3.4 Albumin/Globulin Ratio 0.7 L ABG Interpretation ABG results: 10/09/25 21:10 VBG pH 7.34 VBG pCO2 40 VBG pO2 49 VBG Base Excess -4 L Quality Measures Quality Measures VTE prophylaxis Advance care planning discussed with:: patient Assessment & Plan Assessment Current Active Medications: Generic Name Dose Route Start Last Admin Trade Name Freq PRN Reason Stop Dose Admin Acetaminophen 650 mg 10/09/25 23:37 Acetaminophen 325 Mg Tablet PO 11/08/25 23:36 Q6H PRN Fever >101.5 or pain 1-3 Ceftriaxone Sodium/Dextrose 1 gm in 50 mls @ 100 mls/hr 10/10/25 09:00 10/13/25 08:28 Rocephin/D5w 1gm Iv Premix IV 10/17/25 08:59 100 mls/hr QDAY RASHEED Administration Lacosamide 100 mg 10/10/25 09:00 10/13/25 21:53 Lacosamide Inj 200 Mg/20 Ml Vial IVP 11/09/25 08:59 100 mg BID RASHEED Administration Lactulose 20 gm 10/13/25 14:00 10/14/25 05:30 Lactulose Syrup 20 Gm/30 Ml Udc PO 11/12/25 13:59 20 gm TID RASHEED Administration Protocol Levetiracetam 1,000 mg 10/13/25 21:00 10/13/25 21:52 Levetiracetam 250 Mg Tablet PO 11/09/25 08:59 1,000 mg Q12HR RASHEED Administration Levothyroxine Sodium 100 mcg 10/10/25 06:00 10/14/25 05:30 Levothyroxine Sodium 100 Mcg Tablet PO 11/09/25 05:59 100 mcg ACBR RASHEED Administration Midodrine 10 mg 10/10/25 06:00 10/14/25 05:30 Midodrine 5 Mg Tablet PO 11/09/25 05:59 Not Given TID RASHEED Ondansetron HCl 4 mg 10/09/25 23:37 Ondansetron Inj 2 Mg/Ml Inj 2 Ml IVP 11/08/25 23:36 Q6H PRN NAUSEA OR VOMITING Protocol Pantoprazole Sodium 40 mg 10/10/25 09:00 10/13/25 08:30 Pantoprazole Inj 40 Mg Vial IVP 11/09/25 08:59 40 mg QDAY RASHEED Administration Rifaximin 550 mg 10/10/25 09:00 10/13/25 21:52 Rifaximin 550 Mg Tablet PO 10/17/25 08:59 550 mg BID RASHEED Administration Plan Ms. Ofelia Irvin is a 70-year-old female with past medical history of decompensated cirrhosis, secondary to unknown cause status post portosystemic stent at [facility], hypothyroidism status post thyroidectomy, seizure disorder, GERD, history of GI bleed and urological problems who presented to [facility] emergency department on October 09, 2025 with a chief complaint of altered mental status. Patient was recently discharged from [facility] to [facility] where patient was found to be less interactive not eating well and hence was transferred to [facility] for further evaluation. Patient noted to have hyperammonemia and urinary tract infection for which patient was treated and mentation has improved significantly compared to admission. Patient noted to have systolic murmur in the aortic region, echocardiogram shows moderate to severe aortic stenosis and hence cardiology was consulted to establish care. #Moderate-Severe Aortic Stenosis #Heavy Calcifications of abdominal aorta, left main, Left anterior descending, left circumflex coronary arteries #Pulmonary Artery Hypertension -Patient presents with progressively worsening SOB and generalized weakness. -Patient's home medication includes Furosemide 20mg po 3 times per week. -CT Chest/abd/pelvis wo contract (10/09/2025): showed Heavy abdominal aortic calcification no aneurysmal dilatation, Heavy Calcificaition left main and left anterior descending, and left circumflex coronary arteries, No thoracic aortic aneurysmal dilatation, Main pulmonary artery segment is enlarged 42 mm, Pulmonary artery hypertension, COPD, Cirrhosis, prominent splenomegaly, Significant vascular congestion, Moderate ascites, Thickening of bladder wall (cystitis vs early bladder carcinoma), colonic diverticulosis. [ECHO (10/10/2025)] showed: 1. There is moderate aortic valve sclerosis with SEVERE AORTIC stenosis and mild regurgitation. V max 4.1 m/s, mean PG 40 mm Hg. 2. Left ventricle size is normal and systolic function is normal. Estimated ejection fraction is 55-60%. There is normal diastolic function. 3. Right ventricle chamber size is mildly enlarged and systolic function is normal. Estimated RVSP is 30 mmHg with RAP 3. Mild HTN. 4. Flattening of the ventricular septum in mid to late systole consistent with right ventricular volume overload. 5. There is mild tricuspid, mitral and pulmonic valve regurgitation. 6. There is mild mitral valve regurgitation. 7. The left atrium is moderately enlarged. The right atrium is normal. 8. Normal IVC with estimated RA pressure 3 mmHg. Plan: -Echocardiogram reviewed, patient does have moderate to severe aortic stenosis, V-max 4.1 m/s, mean pressure gradient 40 mmHg, however patient does have underlying severe comorbidity with liver cirrhosis with significant thrombocytopenia, patient is not established with hepatology outpatient workup completed at [facility]. Patient will also need further workup for bladder wall thickening to rule out malignancy. Also patient noted to have muscle wasting, likely has decreased appetite, poor p.o. intake, competent of protein calorie malnutrition. Cardiology will follow-up outpatient however informed family and patient regarding strict outpatient follow-up for underlying liver cirrhosis and bladder wall thickening, if patient has good prognosis, malignancy is ruled out will proceed with further TAVR workup outpatient -Strict I/O -Keep Mg >2 and K>4 #Acute encephalopathy #Hepatic Encephalopathy #Cirrhosis, unknown etiology of underlying liver disease. #Status post portosystemic stent #UTI, suspected #Seizure Disorder #Hypothyroidism #Pancytopenia #Iron Deficiency Anemia #Colonic diverticulosis #GERD -Management per Primary Hospitalist team Thank you for the consult and allowing to participate in the care of the patient. Cardiology will continue to follow. Case discussed with Attending Physician Dr. Daniel Boogie MD Internal Medicine PGY-2 Disclaimer: This note was dictated by speech recognition. Minor errors in feed miller may be present due to voice recognition software. Attending Provider Attestation/Addendum I have personally seen and examined the patient separately on the above date of service and discussed the plan of care with the resident. I reviewed the resident Dr. Landy Boogie consultation progress note and agree with the resident findings and plan in the note above and have also edited the documentation to reflect my findings and plan. Daniel Lockhart M.D. Interventional Cardiology
[2025-10-14] MEDS: LACOSAMIDE INJ 200 MG/20 ML VIAL 100 MG IVP ×2 (09:36→21:41)
[2025-10-14] MEDS: cefTRIAXone/D5w 1gm IV premix 1 GM/50 ML BAG IV (09:38)
--- NOTE | 2025-10-14 10:10 | ESDS_ITS ---
<Statement entered by Clemente Jamil MD - 10/23/25 09:13> I reviewed above note and agree with findings and plans. I have also personally examined the patient with medicine team and went over assessment and plan with medical team including partner marketing intern and resident physician. Planned Discharge Date 10/14/25 DS: Providers Provider Date of admission: 10/09/25 23:37 Primary care physician: Physician No Primary/Family Admitting Provider: Griffin Pham MD Attending Provider on Admission: Griffin Pham MD Consults: 10/10/25 01:45 Referral Physical Therapy Routine Comment: Physician Instructions: 10/10/25 16:31 Consult to Urology Routine Comment: Blood in urine Consulting Provider: Brady Barreto 10/11/25 09:58 Consult to Cardiology Routine Comment: Severe Aortic Stenosis Consulting Provider: Daniel Lockhart Attending Provider on DC: Clemente Jamil MD Discharging Provider: Cassandra Navarro MD DS: Diagnosis Problem List Completed Was Problem List Reviewed/Reconciled?: Yes Hospital Course Hospital Course Hospital course: 70-year-old female with 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 The patient was admitted for acute hepatic encephalopathy, likely secondary to cirrhosis and urinary tract infection. She was noted to have altered mental status, generalized weakness, and blood in the urine from her Mckenzie catheter. Upon admission, her mental status was altered, and she was AOx1. Treatment with lactulose and rifaximin for hepatic encephalopathy and UTI was started. Her mental status improved significantly, becoming alert and oriented by 10/12/2025. Blood and urine cultures were negative, and her hematuria resolved with the Mckenzie catheter, and the urine cleared to orange with no further blood. A CT abdomen/pelvis revealed cirrhosis, hepatomegaly, ascites, and thickened bladder wall. The patient was evaluated by urology, who recommended outpatient cystoscopy due to bladder wall thickening. Her severe aortic stenosis was asymptomatic and managed conservatively due to her advanced cirrhosis, and no intervention was pursued at this time. Her iron deficiency anemia and pancytopenia were monitored, with hemoglobin stable. A transfusion was not required, and the patient will continue monitoring in follow-up. 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 #Hyperammonemia #Lactic Acidosis, resolved # Severe Aortic Stenosis # Hx CAD s/p stent, over 10 years ago # Gross Hematuria, resolved # Bladder wall thickeing # Seizure Disorder # Hypothyroidism # Pancytopenia # Iron Deficiency Anemia # Colonic diverticulosis # GERD Discharge Instructions: Reason for hospitalization: Confusion from liver disease (hepatic encephalopathy) and blood in urine Urine: Blood resolved; follow up with urology for outpatient cystoscopy Medications: Take all medications exactly as prescribed Lactulose: Take 20 g three times daily; goal 2?3 bowel movements per day Rifaximin: Continue 550 mg twice daily Seizure meds: Continue Keppra and lacosamide as prescribed Thyroid medication: Continue levothyroxine 100 mcg daily Diet: Low-sodium diet Activity: As tolerated Follow-up: -Urology with Dr Barreto for cystoscopy -Primary care within 1 week -Cardiology and hepatology outpatient as scheduled Return to ER if: Confusion, fever, worsening weakness, black or bloody urine/stool, dizziness, chest pain, or shortness of breath ----- Plan discussed with attending physician Dr. Omero Navarro MD PGY-1 Internal Medicine Time Spent with Patient Time attestation: Total time spent providing and/or coordinating discharge services: Time spent: Greater than 30 minutes Exam Vital Signs Temp Pulse Resp BP Pulse Ox O2 Del Method 98.4 F 69 16 112/51 L 98 Room Air 10/14/25 08:00 10/14/25 08:00 10/14/25 08:00 10/14/25 08:00 10/14/25 08:00 10/14/25 08:00 Narrative Exam General: Awake, alert, no acute distress HEENT: Normocephalic, atraumatic, PERRL Cardiovascular: Regular rate and rhythm, systolic murmur appreciated Respiratory: Clear to auscultation bilaterally, no respiratory distress Abdomen: Soft, non-tender, mildly distended, bowel sounds present : Mckenzie catheter in place; urine clear no hematuria, no clots noted Extremities: No edema Neuro: AOx3, normal speech, follows commands, no focal deficits Skin: Warm and dry Discharge Plan Plan Patient Disposition: Xfer Skilled Nsg Fac (SNF) Disposition Comment: [facility] Patient condition on transfer: Stable Care Plan Goals: Discharge Instructions: Reason for hospitalization: Confusion from liver disease (hepatic encephalopa thy) and blood in urine Urine: Blood resolved; follow up with urology for outpatient cystoscopy Medications: Take all medications exactly as prescribed Lactulose: Take 20 g three times daily; goal 2?3 bowel movements per day Rifaximin: Continue 550 mg twice daily Seizure meds: Continue Keppra and lacosamide as prescribed Thyroid medication: Continue levothyroxine 100 mcg daily Diet: Low-sodium diet Activity: As tolerated Follow-up: -Urology with Dr Barreto for cystoscopy -Primary care within 1 week -Cardiology and hepatology outpatient as scheduled Return to ER if: Confusion, fever, worsening weakness, black or bloody urine/stool, dizziness, chest pain, or shortness of breath Prescriptions/Referrals Prescriptions/Med Rec: Continued bisacodyl [Dulcolax (bisacodyl)] 10 mg suppository 10 mg IA QDAY PRN (Reason: constipation) pramipexole 0.5 mg tablet 0.5 mg PO QDAY magnesium hydroxide [Milk of Magnesia] 400 mg/5 mL suspension 400 mg PO .COMPLEX PRN (Reason: constipation) Rx Instructions: 400 mg orally Give if patient has no bowel movement for 3 days. PRN; pantoprazole [Protonix] 40 mg tablet,delayed release (DR/EC) 40 mg PO QDAY furosemide [Lasix] 20 mg tablet 20 mg PO .COMPLEX Rx Instructions: 20 mg orally Monday, Monday, Monday; levetiracetam [Keppra] 1,000 mg tablet 1,000 mg PO BID lacosamide 100 mg tablet 100 mg PO BID rifaximin 550 mg tablet 550 mg PO BID sodium phosphates [Fleet Enema] See Rx Instructions IA .COMPLEX PRN (Reason: constipation) Rx Instructions: 1 dose rectally Inset 1 dose rectally every 72 hours as needed for constipation. To be administered if dulcolax ineffective. PRN; Changed midodrine 10 mg tablet 10 mg PO BID 30 Days Qty: 60 0RF Rx Instructions: do not give last dose of day after 6PM or within 4 hrs of bedtime lactulose 10 gram/15 mL solution 20 g PO TID 30 Days Qty: 2700 0RF levothyroxine 75 mcg capsule 10 mcg PO QDAY Qty: 30 0RF Referrals: Brady Barreto MD [Physician, Urology] No Primary/Family,Physician [Primary Care Provider] Patient/Caregiver Discharge Instructions Education Materials: Treating Thyroid Problems, Treating Cirrhosis, Hematuria: Possible Causes, ED Cirrhosis Print Language: Albanian Stand Alone Forms: Martha Award Info., Patient Portal Info Letter Discharge Order Discharge Orders: Discharge (Routine); Ordered 10/14/25 Ordered By: Kim Hernandez Quality Discharge Quality Measures VTE prophylaxis
[2025-10-14 11:28] LABS: Hematocrit 23.1 % (36.0-46.0)
--- NOTE | 2025-10-14 11:32 | PC.SS ---
Addendum entered by Maricruz De Jesus 10/14/25 12:08: Jennifer Cash called SS and informed SS that pt will need a new auth, VIVIAN called [employer] and spoke to Nisha as Dhiraj is OOO today. Nisha will review, VIVIAN pending call back. Transport held until auth proivided. Original Note: VIVIAN sent DC packet to via [facility]. SS to set up transport
[2025-10-14 11:48] LABS: Hemoglobin 7.9 g/dL (12.0-16.0)
[2025-10-14 13:13] LABS: Slide Review Platelets confirmed
--- NOTE | 2025-10-14 14:43 | PC.SS ---
Follow up note: SS spoke to Misha to follow up on auth request for patient to d/c to [facility].
--- NOTE | 2025-10-14 15:09 | PC.SS ---
SS received call from Nisha winter employer relations representative from patient's health insurance who explained pt does not meet criteria for SNF and is contact guard assists (per PT note) and they will provide insurance authorization for Home Health Services. SS has informed Dr. Hernandez, resident physican.
[2025-10-14] MEDS: MIDODRINE 5 MG TABLET 10 MG PO (15:39)
--- NOTE | 2025-10-14 16:05 | PC.SS ---
Addendum entered by Kaya Duran 10/14/25 16:11: Son states pt has a walker at home. Son is requesting a wheelchair and commode. Original Note: SS has informed patient's son, pt does not meet criteria for SNF. Son is requesting for pt to return home tomorrow to get her home situated. Son is agreeable for pt to return home with HH.
[2025-10-15] VITALS (17 sets, daily range): BP systolic 93–120; BP diastolic 43–58; PULSE 56–72; RESP 13–19; TEMP 36.1–37.5; O2SAT 94–100
--- NOTE | 2025-10-15 02:41 | PC.NURSE ---
clarified with Dr. Collier regarding if patient was going to have cystoscopy today 10/15/25 , per doctor, patient will have cystoscopy as outpatient with Dr. Barreto, patient does not need to be NPO. No new orders received.
[2025-10-15] MEDS: LEVOTHYROXINE SODIUM 100 MCG TABLET PO (05:22)
[2025-10-15] MEDS: LACTULOSE SYRUP 20 GM/30 ML UDC PO (05:22)
[2025-10-15 05:39] LABS: Basophils # (Auto) 0.0 Thou/mm3 (0.0-0.2); Basophils % (Auto) 1 % (0-2.5); Eosinophils # (Auto) 0.1 Thou/mm3 (0.0-0.5); Eosinophils % (Auto) 4 % (0-10); Hematocrit 21.8 % (36.0-46.0); Immature Granulocytes Auto 0.01 Thou/mm3 (0.00-0.00); Lymphocytes # (Auto) 0.8 Thou/mm3 (1.0-4.8); Lymphocytes % (Auto) 25 % (10-50); Mean Corpuscular HGB Conc 33.5 g/dl (31.0-37.0); Mean Corpuscular Hemoglobin 30.7 pg (25.0-35.0); Mean Corpuscular Volume 92 fL (80-100); Monocytes # (Auto) 0.3 Thou/mm3 (0.0-0.8); Monocytes % (Auto) 11 % (0-12); Neutrophils # (Auto) 1.8 Thou/mm3 (1.8-7.7); Neutrophils % (Auto) 60 % (37-80); Nucleated Red Blood Cell # 0.00 Thou/mm3 (0.00-0.00); Nucleated Red Blood Cell % 0 /100 WBC (0); RDW Standard Deviation 71.7 fL (36.4-46.3); Red Blood Count 2.38 Miln/mm3 (4.00-5.20); White Blood Count 3.1 Thou/mm3 (3.6-11.0)
[2025-10-15 05:54] LABS: Hemoglobin 7.3 g/dL (12.0-16.0); Platelet Count 57 Thou/mm3 (140-440)
[2025-10-15 05:57] LABS: Alanine Aminotransferase 34 U/L (10-49); Albumin, Serum 2.4 gm/dL (3.4-4.8); Albumin/Globulin Ratio 0.7 (1.2-2.2); Alkaline Phosphatase 153 U/L (46-116); Anion Gap 7 (7-16); Aspartate Amino Transferase 60 U/L (0-34); BUN/Creatinine Ratio 22 Ratio (12-20); Bilirubin,Total 1.2 mg/dL (0.3-1.2); Blood Urea Nitrogen 26 mg/dL (9-23); Calcium 7.8 mg/dL (8.3-10.6); Calcium (Corrected) 9.1 mg/dL (8.5-10.1); Carbon Dioxide 23.7 mMol/L (20.0-31.0); Chloride 109 mMol/L (98-107); Creatinine (Component) 1.2 mg/dL (0.6-1.3); Estimated Creatinine Clearance 38.7 mL/min (>60); Globulin 3.3 gm/dL (2.3-3.5); Glucose 146 mg/dL (74-106); Magnesium 2.0 mg/dL (1.6-2.6); Osmolality,Calculated 287 (275-295); Phosphorous 2.6 mg/dL (2.4-5.1); Potassium 4.7 mMol/L (3.4-5.1); Sodium 140 mMol/L (136-145); Total Protein 5.7 gm/dL (5.7-8.2); eGFR 49 See Note
[2025-10-15 06:21] LABS: INR 1.1 (0.9-1.3); Partial Thromboplastin Time 29.4 Seconds (22.0-36.0); Prothrombin Time 11.6 Seconds (9.0-12.2)
[2025-10-15 06:44] LABS: Slide Review Platelets confirmed
--- NOTE | 2025-10-15 07:56 | PD.RESPRO ---
Documentation for date of: 10/15/25 Subjective Subjective Interval history: Patient seen and examined at bedside today, was scheduled to be discharged yesterday however discharge was held yesterday as patient was denied for long-term facility, had placement issues. Hemoglobin dropped to 7.3 noted today, anemia workup ordered, shows iron 44 mcg, TIBC 172, management per primary team. Vitamin B12 and folate levels within normal limits. 1 unit PRBC ordered by primary team. Patient will need to follow-up with hepatology and urology, will be scheduled for cystoscopy with urology outpatient. Patient needs to follow-up outpatient for further TAVR workup if patient meets criteria and is cleared by hepatology and urology. Exam Vital Signs Temp Pulse Resp BP Pulse Ox O2 Del Method 98.7 F 69 17 105/55 L 98 Room Air 10/15/25 04:00 10/15/25 05:22 10/15/25 04:00 10/15/25 05:22 10/15/25 04:00 10/15/25 04:00 Narrative Exam General: No acute distress, poorly nourished, muscle wasting noted, AAO x3, Elderly, Frail Eye: Normal conjunctiva, no scleral icterus HENT: Normocephalic, atraumatic, hearing intact to conversation at normal volume, moist oral mucosa Lungs: Non-labored respirations, symmetric chest rise, Clear to auscultate bilaterally, No wheezing, rhonchi, crackles Heart: Peripheral pulses intact bilaterally, Regular Rate and Rhythm. Harsh systolic murmur 6/6 aortic region, bounding carotid pulse. Abdomen: Soft, non-tender, non-distended, no palpable masses Musculoskeletal: Normal range of motion and strength, No cyanosis or edema, No visible joint swelling Skin: Skin is warm, dry, no rashes or lesions. Psychiatric: Cooperative, appropriate mood and affect, Awake and alert, not agitated Neuro: Cranial nerves II-XII grossly intact. Strength 5/5 throughout. Sensations intact to light touch. Objective Labs 10/15/25 17:20 10/15/25 04:57 Labs: Laboratory Results - last 24 hr 10/14/25 10/14/25 10/15/25 04:25 11:15 04:57 WBC 3.1 L RBC 2.38 L Hgb 7.9 L 7.3 L Hct 23.1 L 21.8 L* MCV 92 MCH 30.7 MCHC 33.5 RDW Std Deviation 71.7 H Plt Count 57 L Neut % (Auto) 60 Lymph % (Auto) 25 [place] % (Auto) 11 Eos % (Auto) 4 Baso % (Auto) 1 Neut # (Auto) 1.8 Lymph # (Auto) 0.8 L [place] # (Auto) 0.3 Eos # (Auto) 0.1 Baso # (Auto) 0.0 Immature Gran # (Auto) 0.01 H Absolute Nucleated RBC 0.00 Immature Gran % 0 Nucleated RBC % 0 PT 11.6 INR 1.1 APTT 29.4 Sodium 140 Potassium 4.7 Chloride 109 H Carbon Dioxide 23.7 Anion Gap 7 BUN 26 H Creatinine 1.2 Estim Creat Clear Calc 38.7 L eGFR 49 L BUN/Creatinine Ratio 22 H Glucose 146 H Calculated Osmolality 287 Calcium 7.8 L Corrected Calcium 9.1 Phosphorus 2.6 Magnesium 2.0 Total Bilirubin 1.2 AST 60 H ALT 34 Alkaline Phosphatase 153 H Total Protein 5.7 Albumin 2.4 L Globulin 3.3 Albumin/Globulin Ratio 0.7 L Misc Test Result Platelets confirmed Platelets confirmed ABG Interpretation ABG results: 10/09/25 21:10 VBG pH 7.34 VBG pCO2 40 VBG pO2 49 VBG Base Excess -4 L Quality Measures Quality Measures VTE prophylaxis Advance care planning discussed with:: patient Assessment & Plan Assessment Current Active Medications: Generic Name Dose Route Start Last Admin Trade Name Freq PRN Reason Stop Dose Admin Acetaminophen 650 mg 10/09/25 23:37 Acetaminophen 325 Mg Tablet PO 11/08/25 23:36 Q6H PRN Fever >101.5 or pain 1-3 Ceftriaxone Sodium/Dextrose 1 gm in 50 mls @ 100 mls/hr 10/10/25 09:00 10/14/25 09:38 Rocephin/D5w 1gm Iv Premix IV 10/17/25 08:59 100 mls/hr QDAY RASHEED Administration Lacosamide 100 mg 10/10/25 09:00 10/14/25 21:41 Lacosamide Inj 200 Mg/20 Ml Vial IVP 11/09/25 08:59 100 mg BID RASHEED Administration Lactulose 20 gm 10/13/25 14:00 10/15/25 05:22 Lactulose Syrup 20 Gm/30 Ml Udc PO 11/12/25 13:59 20 gm TID RASHEED Administration Protocol Levetiracetam 1,000 mg 10/13/25 21:00 10/14/25 21:41 Levetiracetam 250 Mg Tablet PO 11/09/25 08:59 1,000 mg Q12HR RASHEED Administration Levothyroxine Sodium 100 mcg 10/10/25 06:00 10/15/25 05:22 Levothyroxine Sodium 100 Mcg Tablet PO 11/09/25 05:59 100 mcg ACBR RASHEED Administration Midodrine 10 mg 10/10/25 06:00 10/15/25 05:22 Midodrine 5 Mg Tablet PO 11/09/25 05:59 Not Given TID RASHEED Ondansetron HCl 4 mg 10/09/25 23:37 Ondansetron Inj 2 Mg/Ml Inj 2 Ml IVP 11/08/25 23:36 Q6H PRN NAUSEA OR VOMITING Protocol Pantoprazole Sodium 40 mg 10/10/25 09:00 10/14/25 09:37 Pantoprazole Inj 40 Mg Vial IVP 11/09/25 08:59 40 mg QDAY RASHEED Administration Rifaximin 550 mg 10/10/25 09:00 10/14/25 21:41 Rifaximin 550 Mg Tablet PO 10/17/25 08:59 550 mg BID RASHEED Administration Plan Ms. Ofelia Irvin is a 70-year-old female with past medical history of decompensated cirrhosis, secondary to unknown cause status post portosystemic stent at [facility], hypothyroidism status post thyroidectomy, seizure disorder, GERD, history of GI bleed and urological problems who presented to [facility] emergency department on October 09, 2025 with a chief complaint of altered mental status. Patient was recently discharged from [facility] to [facility] where patient was found to be less interactive not eating well and hence was transferred to [facility] for further evaluation. Patient noted to have hyperammonemia and urinary tract infection for which patient was treated and mentation has improved significantly compared to admission. Patient noted to have systolic murmur in the aortic region, echocardiogram shows moderate to severe aortic stenosis and hence cardiology was consulted to establish care. #Moderate-Severe Aortic Stenosis #Heavy Calcifications of abdominal aorta, left main, Left anterior descending, left circumflex coronary arteries #Pulmonary Artery Hypertension -Patient presents with progressively worsening SOB and generalized weakness. -Patient's home medication includes Furosemide 20mg po 3 times per week. -CT Chest/abd/pelvis wo contract (10/09/2025): showed Heavy abdominal aortic calcification no aneurysmal dilatation, Heavy Calcificaition left main and left anterior descending, and left circumflex coronary arteries, No thoracic aortic aneurysmal dilatation, Main pulmonary artery segment is enlarged 42 mm, Pulmonary artery hypertension, COPD, Cirrhosis, prominent splenomegaly, Significant vascular congestion, Moderate ascites, Thickening of bladder wall (cystitis vs early bladder carcinoma), colonic diverticulosis. [ECHO (10/10/2025)] showed: 1. There is moderate aortic valve sclerosis with SEVERE AORTIC stenosis and mild regurgitation. V max 4.1 m/s, mean PG 40 mm Hg. 2. Left ventricle size is normal and systolic function is normal. Estimated ejection fraction is 55-60%. There is normal diastolic function. 3. Right ventricle chamber size is mildly enlarged and systolic function is normal. Estimated RVSP is 30 mmHg with RAP 3. Mild HTN. 4. Flattening of the ventricular septum in mid to late systole consistent with right ventricular volume overload. 5. There is mild tricuspid, mitral and pulmonic valve regurgitation. 6. There is mild mitral valve regurgitation. 7. The left atrium is moderately enlarged. The right atrium is normal. 8. Normal IVC with estimated RA pressure 3 mmHg. Plan: -Echocardiogram reviewed, patient does have moderate to severe aortic stenosis, V-max 4.1 m/s, mean pressure gradient 40 mmHg, however patient does have underlying severe comorbidity with liver cirrhosis with significant thrombocytopenia, patient is not established with hepatology outpatient workup completed at [facility]. Patient will also need further workup for bladder wall thickening to rule out malignancy. Also patient noted to have muscle wasting, likely has decreased appetite, poor p.o. intake, component of protein calorie malnutrition. Cardiology will follow-up outpatient however informed family and patient regarding strict outpatient follow-up for underlying liver cirrhosis and bladder wall thickening, if patient has good prognosis, malignancy is ruled out will proceed with further TAVR workup outpatient -Strict I/O -Keep Mg >2 and K>4 #Normocytic normochromic anemia #Iron deficiency anemia Hemoglobin drop noted to 7.3 this morning, further anemia workup ordered. Iron 44, TIBC 172, iron saturation 25%, iron sat iron binding 128, vitamin B12 540, folate 7.23 1 unit PRBC ordered by primary team, patient needs iron replacement IV iron should be considered as patient has history of esophageal varices/gastritis. #Acute encephalopathy #Hepatic Encephalopathy #Cirrhosis, unknown etiology of underlying liver disease. #Status post portosystemic stent #UTI, suspected #Seizure Disorder #Hypothyroidism #Pancytopenia #Colonic diverticulosis #GERD -Management per Primary Hospitalist team Thank you for the consult and allowing to participate in the care of the patient. Cardiology will continue to follow. Case discussed with Attending Physician Dr. Daniel Boogie MD Internal Medicine PGY-2 Disclaimer: This note was dictated by speech recognition. Minor errors in poultice machine operator may be present due to voice recognition software. Attending Provider Attestation/Addendum I have personally seen and examined the patient separately on the above date of service and discussed the plan of care with the resident. I reviewed the resident Dr. Landy Boogie consultation progress note and agree with the resident findings and plan in the note above and have also edited the documentation to reflect my findings and plan. Daniel Lockhart M.D. Interventional Cardiology
--- NOTE | 2025-10-15 09:18 | PC.SS ---
WheelChairs Patients diagnosis creates mobility limitations that significantly impairs ability to participate in the patients activities of daily living either in their entirety, or in a reasonable time frame in the home and the patients mobility limitations can not be sufficiently resolved with an appropriately fitted cane or walker. Also the use of a manual wheelchair will sufficiently improve patients ability to participate in the activities of daily living in the home and the patient is willing to use the wheelchair that is provided in the home. The patient has some one in the home that is available, willing and able to provide assistance with the wheelchair. Bedside Commode Patient is physically incapable of utilizing regular toilet facilities because her diagnosis confines the patient to a single room. Patient is confined to a single level, and there is no toilet on that level; patient cannot access the toilet facilities in a timely manner due to lack of ambulation.
--- NOTE | 2025-10-15 09:55 | PD.RESDS ---
Planned Discharge Date 10/15/25 DS: Providers Provider Date of admission: 10/09/25 23:37 Primary care physician: Physician No Primary/Family Admitting Provider: Griffin Pham MD Attending Provider on Admission: Clemente Jamil MD Consults: 10/10/25 01:45 Referral Physical Therapy Routine Comment: Physician Instructions: 10/10/25 16:31 Consult to Urology Routine Comment: Blood in urine Consulting Provider: Brady Barreto 10/11/25 09:58 Consult to Cardiology Routine Comment: Severe Aortic Stenosis Consulting Provider: Daniel Lockhart Attending Provider on DC: Clemente Jamil MD Discharging Provider: Cassandra Navarro MD Hospital Course Hospital Course Hospital course: Patient seen and examined at bedside, no chest pain, shortness of breath or other cardiac symptoms. Patient is more alert today, was seen by urology yesterday, will be scheduled for cystoscopy outpatient. Explained to the patient that she needs to follow-up with hepatology and urology primarily and then follow-up with cardiology outpatient for further TAVR workup. Verbalized understanding. Time Spent with Patient Time attestation: Total time spent providing and/or coordinating discharge services: Home Health Home Health Referral Orders: 10/14/25 17:31 Home Health Referral Routine Reason For Exam: PT Home-Bound The patient must either because of illness or injury, need the aid of supportive devices such as crutches, canes, wheelchairs, and walkers; the use of special transportation; or the assistance of another person in order to leave their place of residence; OR have a condition such that leaving his or her home is medically contraindicated. In addition, the patient also meets the following criteria: patient is normally unable to leave the home and leaving home requires considerable taxing effort. Addendum to Home Health Certification Practitioner's Certification: I certify that the patient has been under my care in the hospital and the care of attending physician (see below). We had a [id number] encounter on (see date below). My clinical findings indicate that the patient is home bound per the above criteria and the Home Health Services noted in these orders are medically necessary. The primary reason for the [id number] encounter is related to the fact that the patient requires home health services. Date Certifying [id number] Physician Encounter: 10/09/25 Physician's Name who will Assume Oversight for HH Services: Physician No Primary/Family SEWING TRIMMER - Community Resources: No PT to Evaluate: Yes PT to evaluate and provide a treatmnet plan to increase patient's mobility and strength. Wound Care: No IV Therapy: No RN Safety Evaluation: Yes RN to evaluate and create a plan of care that will produce positive outcomes. Palliative Treatment: No Palliative treatment and evaluate the need for hospice. Home Health Aide - Personal Care: No Home Health Aide to assist with any ADL's. Exam Vital Signs Temp Pulse Resp BP Pulse Ox O2 Del Method 97.9 F 69 17 109/51 L 98 Room Air 10/15/25 08:00 10/15/25 08:00 10/15/25 08:00 10/15/25 08:00 10/15/25 08:00 10/15/25 08:00 Discharge Plan Plan Patient Disposition: Xfer Skilled Nsg Fac (SNF) Disposition Comment: [facility] Patient condition on transfer: Stable Care Plan Goals: Discharge Instructions: Reason for hospitalization: Confusion from liver disease (hepatic encephalopathy) and blood in urine Urine: Blood resolved; follow up with urology for outpatient cystoscopy Medications: Take all medications exactly as prescribed Lactulose: Take 20 g three times daily; goal 2?3 bowel movements per day Rifaximin: Continue 550 mg twice daily Seizure meds: Continue Keppra and lacosamide as prescribed Thyroid medication: Continue levothyroxine 100 mcg daily Diet: Low-sodium diet Activity: As tolerated Skin Care: Apply over the counter zinc cream to buttocks, julio area and gluteal twice a day and as needed for incontinences. Goal is to keep skin clean and dry. Avoid using briefs. Avoid sitting in once position for extended periods of time to prevent bed sores Follow-up: -Urology with Dr Barreto for cystoscopy -Primary care within 1 week -Cardiology and hepatology outpatient as scheduled Return to ER if: Confusion, fever, worsening weakness, black or bloody urine/stool, dizziness, chest pain, or shortness of breath Prescriptions/Referrals Prescriptions/Med Rec: Continued bisacodyl [Dulcolax (bisacodyl)] 10 mg suppository 10 mg GA QDAY PRN (Reason: constipation) pramipexole 0.5 mg tablet 0.5 mg PO QDAY magnesium hydroxide [Milk of Magnesia] 400 mg/5 mL suspension 400 mg PO .COMPLEX PRN (Reason: constipation) Rx Instructions: 400 mg orally Give if patient has no bowel movement for 3 days. PRN; pantoprazole [Protonix] 40 mg tablet,delayed release (DR/EC) 40 mg PO QDAY furosemide [Lasix] 20 mg tablet 20 mg PO .COMPLEX Rx Instructions: 20 mg orally Monday, Monday, Monday; levetiracetam [Keppra] 1,000 mg tablet 1,000 mg PO BID lacosamide 100 mg tablet 100 mg PO BID rifaximin 550 mg tablet 550 mg PO BID sodium phosphates [Fleet Enema] See Rx Instructions GA .COMPLEX PRN (Reason: constipation) Rx Instructions: 1 dose rectally Inset 1 dose rectally every 72 hours as needed for constipation. To be administered if dulcolax ineffective. PRN; Changed midodrine 10 mg tablet 10 mg PO BID 30 Days Qty: 60 0RF Rx Instructions: do not give last dose of day after 6PM or within 4 hrs of bedtime lactulose 10 gram/15 mL solution 20 g PO TID 30 Days Qty: 2700 0RF levothyroxine 75 mcg capsule 10 mcg PO QDAY Qty: 30 0RF Referrals: Brady Barreto MD [Physician, Urology] No Primary/Family,Physician [Primary Care Provider] Patient/Caregiver Discharge Instructions Education Materials: Zinc Oxide cream, ointment, paste, Treating Thyroid Problems, Treating Cirrhosis, Hematuria: Possible Causes, Preventing Pressure Sores, Bowel Movements and Diaper Rash, ED Cirrhosis Print Language: Irish Stand Alone Forms: Martha Award Info., Patient Portal Info Letter
[2025-10-15] MEDS: cefTRIAXone/D5w 1gm IV premix 1 GM/50 ML BAG IV (10:04)
[2025-10-15] MEDS: LACOSAMIDE INJ 200 MG/20 ML VIAL 100 MG IVP ×2 (10:05→21:10)
--- NOTE | 2025-10-15 10:27 | ESPR_ITS ---
<Statement entered by Clemente Jamil MD - 10/23/25 09:14> I reviewed above note and agree with findings and plans. I have also personally examined the patient with medicine team and went over assessment and plan with medical team including international trade analyst and resident physician. <Statement entered by Babak Coulter MD - 10/15/25 15:32> Patient was examined and case was reviewed with team including attending physician. Note reviewed, I agree with most of its contents and agree with the patient's care as documented by Dr. Navarro Patient seen today at the bedside found awake, alert, orientedx3. No overnight events reported. Vital signs and labs reviewed. Hgb decreased around 7.5 will transfuse 1 unit of pRBC given her cardiac history. Will follow up post transfusion H&H. Possibly discharge in the next 24-48hours. Case discussed with my attending Dr. Omero Coulter MD PGY-2 Documentation for date of: 10/15/25 Subjective Subjective Interval history: No acute overnight events. Patient back to baseline AO x 3. Hemoglobin was low this morning, transfuse 1 unit PRBC. Plan to do cystoscopy today with Dr Barreto as patient's hematuria recurred. Will await urology recommendations. Exam Vital Signs Temp Pulse Resp BP Pulse Ox O2 Del Method 97.9 F 69 17 109/51 L 98 Room Air 10/15/25 08:00 10/15/25 08:00 10/15/25 08:00 10/15/25 08:00 10/15/25 08:00 10/15/25 08:00 Narrative Exam General: No acute distress, poorly nourished, muscle wasting noted, AAO x3, Elderly, Frail Eye: Normal conjunctiva, no scleral icterus HENT: Normocephalic, atraumatic, hearing intact to conversation at normal volume, moist oral mucosa Lungs: Non-labored respirations, symmetric chest rise, Clear to auscultate bilaterally, No wheezing, rhonchi, crackles Heart: Peripheral pulses intact bilaterally, Regular Rate and Rhythm. Harsh systolic murmur 6/6 aortic region, bounding carotid pulse. Abdomen: Soft, non-tender, non-distended, no palpable masses Musculoskeletal: Normal range of motion and strength, No cyanosis or edema, No visible joint swelling Skin: Skin is warm, dry, no rashes or lesions. Psychiatric: Cooperative, appropriate mood and affect, Awake and alert, not agitated Neuro: Cranial nerves II-XII grossly intact. Strength 5/5 throughout. Sensations intact to light touch. Objective Labs 10/15/25 04:57 10/15/25 04:57 Labs: Laboratory Results - last 24 hr 10/14/25 10/14/25 10/15/25 04:25 11:15 04:57 WBC 3.1 L RBC 2.38 L Hgb 7.9 L 7.3 L Hct 23.1 L 21.8 L* MCV 92 MCH 30.7 MCHC 33.5 RDW Std Deviation 71.7 H Plt Count 57 L Neut % (Auto) 60 Lymph % (Auto) 25 [place] % (Auto) 11 Eos % (Auto) 4 Baso % (Auto) 1 Neut # (Auto) 1.8 Lymph # (Auto) 0.8 L [place] # (Auto) 0.3 Eos # (Auto) 0.1 Baso # (Auto) 0.0 Immature Gran # (Auto) 0.01 H Absolute Nucleated RBC 0.00 Immature Gran % 0 Nucleated RBC % 0 PT 11.6 INR 1.1 APTT 29.4 Sodium 140 Potassium 4.7 Chloride 109 H Carbon Dioxide 23.7 Anion Gap 7 BUN 26 H Creatinine 1.2 Estim Creat Clear Calc 38.7 L eGFR 49 L BUN/Creatinine Ratio 22 H Glucose 146 H Calculated Osmolality 287 Calcium 7.8 L Corrected Calcium 9.1 Phosphorus 2.6 Magnesium 2.0 Total Bilirubin 1.2 AST 60 H ALT 34 Alkaline Phosphatase 153 H Total Protein 5.7 Albumin 2.4 L Globulin 3.3 Albumin/Globulin Ratio 0.7 L Misc Test Result Platelets confirmed Platelets confirmed Crossmatch Blood Bank Wristband ID 10/15/25 09:25 WBC RBC Hgb Hct MCV MCH MCHC RDW Std Deviation Plt Count Neut % (Auto) Lymph % (Auto) [place] % (Auto) Eos % (Auto) Baso % (Auto) Neut # (Auto) Lymph # (Auto) [place] # (Auto) Eos # (Auto) Baso # (Auto) Immature Gran # (Auto) Absolute Nucleated RBC Immature Gran % Nucleated RBC % PT INR APTT Sodium Potassium Chloride Carbon Dioxide Anion Gap BUN Creatinine Estim Creat Clear Calc eGFR BUN/Creatinine Ratio Glucose Calculated Osmolality Calcium Corrected Calcium Phosphorus Magnesium Total Bilirubin AST ALT Alkaline Phosphatase Total Protein Albumin Globulin Albumin/Globulin Ratio Misc Test Result Crossmatch See Detail Blood Bank Wristband ID Yes ABG Interpretation ABG results: 10/09/25 21:10 VBG pH 7.34 VBG pCO2 40 VBG pO2 49 VBG Base Excess -4 L Quality Measures Quality Measures VTE prophylaxis Advance care planning discussed with:: patient Assessment & Plan Assessment Current Active Medications: Generic Name Dose Route Start Last Admin Trade Name Freq PRN Reason Stop Dose Admin Acetaminophen 650 mg 10/09/25 23:37 Acetaminophen 325 Mg Tablet PO 11/08/25 23:36 Q6H PRN Fever >101.5 or pain 1-3 Ceftriaxone Sodium/Dextrose 1 gm in 50 mls @ 100 mls/hr 10/10/25 09:00 10/15/25 10:04 Rocephin/D5w 1gm Iv Premix IV 10/17/25 08:59 100 mls/hr QDAY RASHEED Administration Lacosamide 100 mg 10/10/25 09:00 10/15/25 10:05 Lacosamide Inj 200 Mg/20 Ml Vial IVP 11/09/25 08:59 100 mg BID RASHEED Administration Lactulose 20 gm 10/13/25 14:00 10/15/25 05:22 Lactulose Syrup 20 Gm/30 Ml Udc PO 11/12/25 13:59 20 gm TID RASHEED Administration Protocol Levetiracetam 1,000 mg 10/13/25 21:00 10/15/25 10:05 Levetiracetam 250 Mg Tablet PO 11/09/25 08:59 1,000 mg Q12HR RASHEED Administration Levothyroxine Sodium 100 mcg 10/10/25 06:00 10/15/25 05:22 Levothyroxine Sodium 100 Mcg Tablet PO 11/09/25 05:59 100 mcg ACBR RASHEED Administration Midodrine 10 mg 10/10/25 06:00 10/15/25 05:22 Midodrine 5 Mg Tablet PO 11/09/25 05:59 Not Given TID RASHEED Ondansetron HCl 4 mg 10/09/25 23:37 Ondansetron Inj 2 Mg/Ml Inj 2 Ml IVP 11/08/25 23:36 Q6H PRN NAUSEA OR VOMITING Protocol Pantoprazole Sodium 40 mg 10/10/25 09:00 10/15/25 10:04 Pantoprazole Inj 40 Mg Vial IVP 11/09/25 08:59 40 mg QDAY RASHEED Administration Rifaximin 550 mg 10/10/25 09:00 10/15/25 10:05 Rifaximin 550 Mg Tablet PO 10/17/25 08:59 550 mg BID RASHEED Administration Plan 70-year-old female with 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 Plan to do cystoscopy today. 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 Patient is normally able to interactive and was found to not be as interactive, more lethargic, and not eating as much. 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 Patient may be suffering from acute encephalopathy secondary to a urinary tract infection with possible component of hepatic encephalopathy, however the patient has been lactulose and rifaximin at her nursing facility. Patient has decompensated cirrhosis secondary to MASLD, status post TIPS, which increases risk for recurrent hepatic encephalopathy Diagnostic: Urinalysis positive for 131 WBC, 1347 RBC, and leukocyte esterase positive CT head 10/09 negative for acute abnormalities, small old appearing infarct in the left cerebral hemisphere CT chest/abdomen/pelvis 10/09 positive for cirrhosis, prominent hepatomegaly, moderate ascites, colonic diverticulosis and thickening of the bladder wall On admission, AST noted to be 47, ALT 22, and bilirubin 2.1 Ammonia on admission 85 UA grossly positive on admission; patient clinically stable without systemic symptoms. Blood cultures collected 10/09, pending Urine culture collected 10/09, pending 10/11: Mental status now at baseline (AOx3). Persistent hematuria via Mckenzie without clots; CT showed bladder wall thickening, malignancy not excluded. Improving bilirubin 1.6 Lactic acid 1.6, resolved 10/13: Mental status at baseline; only 2 BMs in last 24 hours. 10/05: Back to baseline Plan: * Continue lactulose to 20 g TID (goal 3-4 BMs/day) * Continue rifaximin 550 mg BID * Monitor mental status daily * Continue ceftriaxone 1 g IV daily (started 10/09) * Follow urine and blood cultures * Monitor WBC and vitals * Continue to monitor urine output and appearance * Trend hemoglobin daily * Urology consult pending, today * Strict I/Os # Severe Aortic Stenosis # Hx CAD s/p stent, over 10 years ago Severe on echo; currently asymptomatic. Plan: * Cardiology consult for further evaluation and outpatient planning * Monitor for chest pain, syncope, or dyspnea # Gross Hematuria # Bladder wall thickeing Ongoing hematuria with thrombocytopenia; no clots. CT on 10/09 shows bladder wall thickening. Urine now orange-tinged rather than melyssa blood; cultures negative. Hematuria reccured. Plan: * Cystoscopy today with Dr Barreto. * Continue to monitor Mckenzie output and color * Trend hemoglobin daily # Seizure Disorder Patient does have history of seizures for which she takes Keppra and lacosamide for. Plan: * Continue Keppra 1 g BID and lacosamide 100 mg BID * Seizure precautions * Neuro checks per routine # Hypothyroidism Patient does have history of hypothyroidism for which she takes levothyroxine 75 mcg daily for management outpatient. TSH on admission 13.79 with free T4 0.5 And free T3 0.9 Plan: * Continue levothyroxine 100 mcg daily # Pancytopenia # Iron Deficiency Anemia Chronic, likely multifactorial including cirrhosis and antiepileptics; Hgb stable today. Patient noted to have hemoglobin of 9.8, WBC of 3.5, and platelet of 73 on admission. Possibly secondary to her Keppra and lacosamide as that has been shown to be associated with pancytopenia. Hgb this morning 7.3 transfusing one unit PRBC. Plan: * Continue to monitor CBC * Transfuse one unit PRBC * Post H&H * Outpatient hematology follow-up #Colonic diverticulosis As noted on CT chest/abdomen/pelvis 10/09 # GERD Plan: * Continue Protonix 40 mg daily Health maintenance: DVT: SCDs GI: Protonix Diet: Low sodium Code Status: DNR Disposition: Continue MedSurg care; pending cystoscopy today ----- Plan discussed with attending physician Dr. Jamil and senior resident Dr. Vernon Navarro MD PGY-1 Internal Medicine
[2025-10-15 12:19] LABS: Iron 44 mcg/dL (50-170); Percent Iron Saturation 25 % (20-55); Total Iron Binding Capacity 172 mcg/dL (250-425); Unsaturated Iron Binding 128 (225-295)
[2025-10-15 12:23] LABS: Folate 7.23 ng/mL (>5.38); Vitamin B12 540 pg/mL (211-911)
[2025-10-15 12:43] LABS: Path Review Blood Smear Sent to Pathologist
--- NOTE | 2025-10-15 12:44 | PC.SS ---
SS received a call from Jennifer from in regards to why auth was denied. 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 They will accept pt under nursing home care.
--- NOTE | 2025-10-15 12:52 | PC.SS ---
SS reached out to pt son Phan Irvin, SS informed him of Jennifer call about retirement care. Per Phan this would be great and take so much stress off him. Pt is currently pending a blood transfusion and will most likelt DC tomorrow. Phan aware and in agreement.
--- NOTE | 2025-10-15 13:21 | PC.CC ---
Spoke with Marie from [facility], she verified Dara Brizuela is the patients primary physician. Dr. Johnson was added to the chart as primary care provider.
--- NOTE | 2025-10-15 14:28 | SUR.PHASEI ---
1428 Patient arrived to recovery sleeping comfortably in [facility]- able to arouse with verbal prompting, on oxygen 2L via oxy mask, breathing unlabored, vital signs stable, denies pain and nausea, 16F nolan in place with leg secure; draining to gravity, report received from Dr. Colmenares and Kris PEREZ
--- NOTE | 2025-10-15 14:28 | PD.SUROPNT ---
Date of Procedure 10/15/25 Pre Op Diagnosis Gross hematuria, thickened bladder wall on CAT scan Post Op Diagnosis Same plus bladder diverticulum no bladder tumor no bladder tumor in the bladder diverticulum either Procedure Cystoscopic examination Findings Bladder diverticulum no bladder tumor Procedure Description Indication for procedure this is a 70-year-old female who was admitted in the hospital with multiple medical problems she had gross hematuria CAT scan was done this revealed thickened bladder wall she was recommended cystoscopic examination procedure and complications were discussed with patient in great detail informed consent is obtained This patient had indwelling Mckenzie catheter. Patient was brought to the operating room in a satisfactory condition after appropriate premedication was put on the operating table in a spine position she was appropriately identified by surgeon and operating room staff MAC anesthesia was administered patient was repositioned into dorsolithotomy position parts were prepped and draped in the usual sterile fashion 2% lidocaine was instilled into the urethra 21 cystoscope was introduced into the bladder per urethra after the catheter was removed. Examination of bladder in all the quadrant was carried out there was no tumors stones diverticuli identified she had catheter reaction. There was a large bladder diverticulum left lateral wall of the bladder inside of the diverticulum was examined and there was no tumor identified instrument was withdrawn gently #16 Mckenzie catheter was inserted balloon was inflated with 10 cc of water patient after having tolerated the procedure well was sent to recovery room in a satisfactory condition to be transferred to the floor Pathology / specimen None Estimated Blood Loss 1 Condition Stable Surgeon Brady Barreto MD Surgical Staff Operation Date: 10/15/25 14:00 <No data on this case meets the specified criteria>
--- NOTE | 2025-10-15 15:06 | SUR.PHASEI ---
1506 Patient transported via gurney to room 378 without incident, Ailyn RN and Radha RN arrival promptly to patients room to assist with transferring patient from gurney to bed, patient resting comfortably in bed with call light in reach when this repairer typewriter left patients room
[2025-10-15] MEDS: SODIUM CHLORIDE 0.9% 250 ML 250 ML 999 ML IV (17:35)
[2025-10-15] MEDS: MIDODRINE 5 MG TABLET 15 MG PO (17:35)
[2025-10-15 17:43] LABS: Hematocrit 25.2 % (36.0-46.0)
[2025-10-15 17:47] LABS: Hemoglobin 8.4 g/dL (12.0-16.0)
[2025-10-16] VITALS (9 sets, daily range): BP systolic 93–116; BP diastolic 46–59; PULSE 53–68; RESP 18–100; TEMP 36.1–36.8; O2SAT 95–99; BMI 13.0
[2025-10-16] MEDS: LEVOTHYROXINE SODIUM 100 MCG TABLET PO (05:16)
[2025-10-16 05:44] LABS: Basophils # (Auto) 0.0 Thou/mm3 (0.0-0.2); Basophils % (Auto) 1 % (0-2.5); Eosinophils # (Auto) 0.1 Thou/mm3 (0.0-0.5); Eosinophils % (Auto) 3 % (0-10); Hematocrit 25.8 % (36.0-46.0); Hemoglobin 8.9 g/dL (12.0-16.0); Immature Granulocytes Auto 0.01 Thou/mm3 (0.00-0.00); Lymphocytes # (Auto) 1.0 Thou/mm3 (1.0-4.8); Lymphocytes % (Auto) 32 % (10-50); Mean Corpuscular HGB Conc 34.5 g/dl (31.0-37.0); Mean Corpuscular Hemoglobin 31.6 pg (25.0-35.0); Mean Corpuscular Volume 92 fL (80-100); Monocytes # (Auto) 0.4 Thou/mm3 (0.0-0.8); Monocytes % (Auto) 12 % (0-12); Neutrophils # (Auto) 1.7 Thou/mm3 (1.8-7.7); Neutrophils % (Auto) 52 % (37-80); Nucleated Red Blood Cell # 0.00 Thou/mm3 (0.00-0.00); Nucleated Red Blood Cell % 0 /100 WBC (0); RDW Standard Deviation 72.7 fL (36.4-46.3); Red Blood Count 2.82 Miln/mm3 (4.00-5.20); White Blood Count 3.3 Thou/mm3 (3.6-11.0)
[2025-10-16 05:46] LABS: Platelet Count 53 Thou/mm3 (140-440)
[2025-10-16 05:47] LABS: Slide Review Platelets confirmed
[2025-10-16 05:59] LABS: INR 1.2 (0.9-1.3); Partial Thromboplastin Time 31.8 Seconds (22.0-36.0); Prothrombin Time 12.3 Seconds (9.0-12.2)
[2025-10-16 06:13] LABS: Alanine Aminotransferase 38 U/L (10-49); Albumin, Serum 2.3 gm/dL (3.4-4.8); Albumin/Globulin Ratio 0.7 (1.2-2.2); Alkaline Phosphatase 115 U/L (46-116); Anion Gap 9 (7-16); Aspartate Amino Transferase 66 U/L (0-34); BUN/Creatinine Ratio 29 Ratio (12-20); Bilirubin,Total 1.8 mg/dL (0.3-1.2); Blood Urea Nitrogen 29 mg/dL (9-23); Calcium 7.9 mg/dL (8.3-10.6); Calcium (Corrected) 9.3 mg/dL (8.5-10.1); Carbon Dioxide 21.9 mMol/L (20.0-31.0); Chloride 110 mMol/L (98-107); Creatinine (Component) 1.0 mg/dL (0.6-1.3); Estimated Creatinine Clearance 46.5 mL/min (>60); Globulin 3.3 gm/dL (2.3-3.5); Glucose 104 mg/dL (74-106); Magnesium 1.9 mg/dL (1.6-2.6); Osmolality,Calculated 287 (275-295); Phosphorous 3.3 mg/dL (2.4-5.1); Potassium 5.0 mMol/L (3.4-5.1); Sodium 141 mMol/L (136-145); Total Protein 5.6 gm/dL (5.7-8.2); eGFR > 60 See Note
--- NOTE | 2025-10-16 09:38 | PD.RESPRO ---
Documentation for date of: 10/16/25 Subjective Subjective Interval history: Patient seen and examined at bedside today, was scheduled to be discharged yesterday however discharge was held yesterday as patient was denied for correction facility, had placement issues. Patient underwent cystoscopy by urology, no concern of malignancy no pathology samples collected. Bladder diverticula noted. Patient will need to follow-up with hepatolog. Patient needs to follow-up outpatient for further TAVR workup if patient meets criteria and is cleared by hepatology. Exam Vital Signs Temp Pulse Resp BP Pulse Ox O2 Del Method O2 Flow Rate 97.0 F 60 18 93/59 L 98 Room Air 2 10/16/25 08:00 10/16/25 08:00 10/16/25 08:00 10/16/25 08:00 10/16/25 08:00 10/16/25 04:00 10/15/25 14:43 Narrative Exam General: No acute distress, poorly nourished, muscle wasting noted, AAO x3, Elderly, Frail Eye: Normal conjunctiva, no scleral icterus HENT: Normocephalic, atraumatic, hearing intact to conversation at normal volume, moist oral mucosa Lungs: Non-labored respirations, symmetric chest rise, Clear to auscultate bilaterally, No wheezing, rhonchi, crackles Heart: Peripheral pulses intact bilaterally, Regular Rate and Rhythm. Harsh systolic murmur 6/6 aortic region, bounding carotid pulse. Abdomen: Soft, non-tender, non-distended, no palpable masses Musculoskeletal: Normal range of motion and strength, No cyanosis or edema, No visible joint swelling Skin: Skin is warm, dry, no rashes or lesions. Psychiatric: Cooperative, appropriate mood and affect, Awake and alert, not agitated Neuro: Cranial nerves II-XII grossly intact. Strength 5/5 throughout. Sensations intact to light touch. Objective Labs 10/16/25 04:35 10/16/25 04:35 Labs: Laboratory Results - last 24 hr 10/15/25 10/15/25 10/15/25 04:57 09:25 17:20 WBC RBC Hgb 8.4 L Hct 25.2 L MCV MCH MCHC RDW Std Deviation Plt Count Neut % (Auto) Lymph % (Auto) [place] % (Auto) Eos % (Auto) Baso % (Auto) Neut # (Auto) Lymph # (Auto) [place] # (Auto) Eos # (Auto) Baso # (Auto) Immature Gran # (Auto) Absolute Nucleated RBC Immature Gran % Nucleated RBC % Smear Path Review Sent to Pathologist PT INR APTT Sodium Potassium Chloride Carbon Dioxide Anion Gap BUN Creatinine Estim Creat Clear Calc eGFR BUN/Creatinine Ratio Glucose Calculated Osmolality Calcium Corrected Calcium Phosphorus Magnesium Iron 44 L TIBC 172 L Iron Saturation 25 Unsat Iron Binding 128 L Total Bilirubin AST ALT Alkaline Phosphatase Total Protein Albumin Globulin Albumin/Globulin Ratio Vitamin B12 540 Folate 7.23 Misc Test Result Blood Type O Positive Antibody Screen NEGATIVE Crossmatch See Detail Blood Bank Wristband ID Yes 10/16/25 04:35 WBC 3.3 L RBC 2.82 L Hgb 8.9 L Hct 25.8 L MCV 92 MCH 31.6 MCHC 34.5 RDW Std Deviation 72.7 H Plt Count 53 L Neut % (Auto) 52 Lymph % (Auto) 32 [place] % (Auto) 12 Eos % (Auto) 3 Baso % (Auto) 1 Neut # (Auto) 1.7 L Lymph # (Auto) 1.0 [place] # (Auto) 0.4 Eos # (Auto) 0.1 Baso # (Auto) 0.0 Immature Gran # (Auto) 0.01 H Absolute Nucleated RBC 0.00 Immature Gran % 0 Nucleated RBC % 0 Smear Path Review PT 12.3 H INR 1.2 APTT 31.8 Sodium 141 Potassium 5.0 Chloride 110 H Carbon Dioxide 21.9 Anion Gap 9 BUN 29 H Creatinine 1.0 Estim Creat Clear Calc 46.5 L eGFR > 60 BUN/Creatinine Ratio 29 H Glucose 104 Calculated Osmolality 287 Calcium 7.9 L Corrected Calcium 9.3 Phosphorus 3.3 Magnesium 1.9 Iron TIBC Iron Saturation Unsat Iron Binding Total Bilirubin 1.8 H D AST 66 H ALT 38 Alkaline Phosphatase 115 D Total Protein 5.6 L Albumin 2.3 L Globulin 3.3 Albumin/Globulin Ratio 0.7 L Vitamin B12 Folate Misc Test Result Platelets confirmed Blood Type Antibody Screen Crossmatch Blood Bank Wristband ID ABG Interpretation ABG results: 10/09/25 21:10 VBG pH 7.34 VBG pCO2 40 VBG pO2 49 VBG Base Excess -4 L Quality Measures Quality Measures VTE prophylaxis Advance care planning discussed with:: patient Assessment & Plan Assessment Current Active Medications: Generic Name Dose Route Start Last Admin Trade Name Freq PRN Reason Stop Dose Admin Acetaminophen 650 mg 10/09/25 23:37 Acetaminophen 325 Mg Tablet PO 11/08/25 23:36 Q6H PRN Fever >101.5 or pain 1-3 Ceftriaxone Sodium/Dextrose 1 gm in 50 mls @ 100 mls/hr 10/10/25 09:00 10/15/25 10:04 Rocephin/D5w 1gm Iv Premix IV 10/17/25 08:59 100 mls/hr QDAY RASHEED Administration Magnesium Sulfate 2 gm in 50 mls @ 25 mls/hr 10/16/25 08:50 Magnesium Sulfate Ivpb IV 10/16/25 10:49 X1 ONE Lacosamide 100 mg 10/10/25 09:00 10/15/25 21:10 Lacosamide Inj 200 Mg/20 Ml Vial IVP 11/09/25 08:59 100 mg BID RASHEED Administration Lactulose 20 gm 10/13/25 14:00 10/16/25 05:16 Lactulose Syrup 20 Gm/30 Ml Udc PO 11/12/25 13:59 Not Given TID RASHEED Protocol Levetiracetam 1,000 mg 10/13/25 21:00 10/15/25 21:10 Levetiracetam 250 Mg Tablet PO 11/09/25 08:59 1,000 mg Q12HR RASHEED Administration Levothyroxine Sodium 100 mcg 10/10/25 06:00 10/16/25 05:16 Levothyroxine Sodium 100 Mcg Tablet PO 11/09/25 05:59 100 mcg ACBR RASHEED Administration Midodrine 10 mg 10/10/25 06:00 10/16/25 05:13 Midodrine 5 Mg Tablet PO 11/09/25 05:59 Not Given TID RASHEED Midodrine 10 mg 10/16/25 09:37 Midodrine 5 Mg Tablet PO 10/16/25 09:38 X1 ONE Ondansetron HCl 4 mg 10/09/25 23:37 Ondansetron Inj 2 Mg/Ml Inj 2 Ml IVP 11/08/25 23:36 Q6H PRN NAUSEA OR VOMITING Protocol Pantoprazole Sodium 40 mg 10/10/25 09:00 10/15/25 10:04 Pantoprazole Inj 40 Mg Vial IVP 11/09/25 08:59 40 mg QDAY RASHEED Administration Rifaximin 550 mg 12/12/25 09:00 10/15/25 21:10 Rifaximin 550 Mg Tablet PO 10/22/25 08:59 550 mg BID RASHEED Administration Plan Ms. Oeflia Irvin is a 70-year-old female with past medical history of decompensated cirrhosis, secondary to unknown cause status post portosystemic stent at [facility], hypothyroidism status post thyroidectomy, seizure disorder, GERD, history of GI bleed and urological problems who presented to [facility] emergency department on October 09, 2025 with a chief complaint of altered mental status. Patient was recently discharged from [facility] to [facility] where patient was found to be less interactive not eating well and hence was transferred to [facility] for further evaluation. Patient noted to have hyperammonemia and urinary tract infection for which patient was treated and mentation has improved significantly compared to admission. Patient noted to have systolic murmur in the aortic region, echocardiogram shows moderate to severe aortic stenosis and hence cardiology was consulted to establish care. #Moderate-Severe Aortic Stenosis #Heavy Calcifications of abdominal aorta, left main, Left anterior descending, left circumflex coronary arteries #Pulmonary Artery Hypertension -Patient presents with progressively worsening SOB and generalized weakness. -Patient's home medication includes Furosemide 20mg po 3 times per week. -CT Chest/abd/pelvis wo contract (10/09/2025): showed Heavy abdominal aortic calcification no aneurysmal dilatation, Heavy Calcificaition left main and left anterior descending, and left circumflex coronary arteries, No thoracic aortic aneurysmal dilatation, Main pulmonary artery segment is enlarged 42 mm, Pulmonary artery hypertension, COPD, Cirrhosis, prominent splenomegaly, Significant vascular congestion, Moderate ascites, Thickening of bladder wall (cystitis vs early bladder carcinoma), colonic diverticulosis. [ECHO (10/10/2025)] showed: 1. There is moderate aortic valve sclerosis with SEVERE AORTIC stenosis and mild regurgitation. V max 4.1 m/s, mean PG 40 mm Hg. 2. Left ventricle size is normal and systolic function is normal. Estimated ejection fraction is 55-60%. There is normal diastolic function. 3. Right ventricle chamber size is mildly enlarged and systolic function is normal. Estimated RVSP is 30 mmHg with RAP 3. Mild HTN. 4. Flattening of the ventricular septum in mid to late systole consistent with right ventricular volume overload. 5. There is mild tricuspid, mitral and pulmonic valve regurgitation. 6. There is mild mitral valve regurgitation. 7. The left atrium is moderately enlarged. The right atrium is normal. 8. Normal IVC with estimated RA pressure 3 mmHg. Plan: -Echocardiogram reviewed, patient does have moderate to severe aortic stenosis, V-max 4.1 m/s, mean pressure gradient 40 mmHg, however patient does have underlying severe comorbidity with liver cirrhosis with significant thrombocytopenia, patient is not established with hepatology outpatient workup completed at [facility]. Patient noted to have muscle wasting, likely has decreased appetite, poor p.o. intake, component of protein calorie malnutrition. Cardiology will follow-up outpatient however informed family and patient regarding strict outpatient follow-up for underlying liver cirrhosis, if patient has good prognosis, malignancy is ruled out will proceed with further TAVR workup outpatient -Strict I/O -Keep Mg >2 and K>4 #Normocytic normochromic anemia #Iron deficiency anemia Hemoglobin drop noted to 7.3 this morning, further anemia workup ordered. Iron 44, TIBC 172, iron saturation 25%, iron sat iron binding 128, vitamin B12 540, folate 7.23 1 unit PRBC ordered by primary team, patient needs iron replacement IV iron should be considered as patient has history of esophageal varices/gastritis. #Acute encephalopathy #Hepatic Encephalopathy #Cirrhosis, unknown etiology of underlying liver disease. #Status post portosystemic stent #UTI, suspected #Seizure Disorder #Hypothyroidism #Pancytopenia #Colonic diverticulosis #GERD -Management per Primary Hospitalist team Thank you for the consult and allowing to participate in the care of the patient. Cardiology will continue to follow. Case discussed with Attending Physician Dr. Daniel Boogie MD Internal Medicine PGY-2 Disclaimer: This note was dictated by speech recognition. Minor errors in labor relations director may be present due to voice recognition software. Attending Provider Attestation/Addendum I have personally seen and examined the patient separately on the above date of service and discussed the plan of care with the resident. I reviewed the resident Dr. Landy Boogie consultation progress note and agree with the resident findings and plan in the note above and have also edited the documentation to reflect my findings and plan. Daniel Lockhart M.D. Interventional Cardiology
[2025-10-16] MEDS: LACOSAMIDE INJ 200 MG/20 ML VIAL 100 MG IVP (09:53)
[2025-10-16] MEDS: MIDODRINE 5 MG TABLET 10 MG PO ×2 (09:53→13:31)
[2025-10-16] MEDS: cefTRIAXone/D5w 1gm IV premix 1 GM/50 ML BAG IV (09:54)
--- NOTE | 2025-10-16 10:04 | PC.SS ---
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 VIVIAN has sent updated inquiry to [facility] using [employer] upon Jose's request using [employer]. Per Jennifer Vail pt will also require a PASRR due to being d/c from their facility and pt will be re admit.
--- NOTE | 2025-10-16 11:15 | PC.CC ---
PASRR Level 1 complete and downloaded; Level 2 not required.
--- NOTE | 2025-10-16 11:16 | PC.NURSE ---
patient has discharge orders but i still have to give magnesium
[2025-10-16] MEDS: Magnesium Sulfate 2 GM Ivpb 2 GM/50 ML BAG IV (11:55)
[2025-10-16] MEDS: LACTULOSE SYRUP 20 GM/30 ML UDC PO (13:31)
--- NOTE | 2025-10-16 14:13 | PD.RESPRO ---
Documentation for date of: 10/16/25 Exam Vital Signs Temp Pulse Resp BP Pulse Ox O2 Del Method O2 Flow Rate 97.4 F 68 18 111/53 L 99 Room Air 2 10/16/25 12:00 10/16/25 13:31 10/16/25 12:21 10/16/25 13:31 10/16/25 12:00 10/16/25 12:00 10/15/25 14:43 Objective Labs 10/16/25 04:35 10/16/25 04:35 Labs: Laboratory Results - last 24 hr 10/15/25 10/15/25 10/16/25 09:25 17:20 04:35 WBC 3.3 L RBC 2.82 L Hgb 8.4 L 8.9 L Hct 25.2 L 25.8 L MCV 92 MCH 31.6 MCHC 34.5 RDW Std Deviation 72.7 H Plt Count 53 L Neut % (Auto) 52 Lymph % (Auto) 32 [place] % (Auto) 12 Eos % (Auto) 3 Baso % (Auto) 1 Neut # (Auto) 1.7 L Lymph # (Auto) 1.0 [place] # (Auto) 0.4 Eos # (Auto) 0.1 Baso # (Auto) 0.0 Immature Gran # (Auto) 0.01 H Absolute Nucleated RBC 0.00 Immature Gran % 0 Nucleated RBC % 0 PT 12.3 H INR 1.2 APTT 31.8 Sodium 141 Potassium 5.0 Chloride 110 H Carbon Dioxide 21.9 Anion Gap 9 BUN 29 H Creatinine 1.0 Estim Creat Clear Calc 46.5 L eGFR > 60 BUN/Creatinine Ratio 29 H Glucose 104 Calculated Osmolality 287 Calcium 7.9 L Corrected Calcium 9.3 Phosphorus 3.3 Magnesium 1.9 Total Bilirubin 1.8 H D AST 66 H ALT 38 Alkaline Phosphatase 115 D Total Protein 5.6 L Albumin 2.3 L Globulin 3.3 Albumin/Globulin Ratio 0.7 L Misc Test Result Platelets confirmed Crossmatch See Detail ABG Interpretation ABG results: 10/09/25 21:10 VBG pH 7.34 VBG pCO2 40 VBG pO2 49 VBG Base Excess -4 L Quality Measures Quality Measures VTE prophylaxis Assessment & Plan Assessment Current Active Medications: Generic Name Dose Route Start Last Admin Trade Name Freq PRN Reason Stop Dose Admin Acetaminophen 650 mg 10/09/25 23:37 Acetaminophen 325 Mg Tablet PO 11/08/25 23:36 Q6H PRN Fever >101.5 or pain 1-3 Ceftriaxone Sodium/Dextrose 1 gm in 50 mls @ 100 mls/hr 10/10/25 09:00 10/16/25 09:54 Rocephin/D5w 1gm Iv Premix IV 10/17/25 08:59 100 mls/hr QDAY RASHEED Administration Lacosamide 100 mg 10/10/25 09:00 10/16/25 09:53 Lacosamide Inj 200 Mg/20 Ml Vial IVP 11/09/25 08:59 100 mg BID RASHEED Administration Lactulose 20 gm 10/13/25 14:00 10/16/25 13:31 Lactulose Syrup 20 Gm/30 Ml Udc PO 11/12/25 13:59 20 gm TID RASHEED Administration Protocol Levetiracetam 1,000 mg 10/13/25 21:00 10/16/25 09:54 Levetiracetam 250 Mg Tablet PO 11/09/25 08:59 1,000 mg Q12HR RASHEED Administration Levothyroxine Sodium 100 mcg 10/10/25 06:00 10/16/25 05:16 Levothyroxine Sodium 100 Mcg Tablet PO 11/09/25 05:59 100 mcg ACBR RASHEED Administration Midodrine 10 mg 10/10/25 06:00 10/16/25 13:31 Midodrine 5 Mg Tablet PO 11/09/25 05:59 10 mg TID RASHEED Administration Ondansetron HCl 4 mg 10/09/25 23:37 Ondansetron Inj 2 Mg/Ml Inj 2 Ml IVP 11/08/25 23:36 Q6H PRN NAUSEA OR VOMITING Protocol Pantoprazole Sodium 40 mg 10/10/25 09:00 10/16/25 09:53 Pantoprazole Inj 40 Mg Vial IVP 11/09/25 08:59 40 mg QDAY RASHEED Administration Rifaximin 550 mg 10/10/25 09:00 10/16/25 09:54 Rifaximin 550 Mg Tablet PO 10/22/25 08:59 550 mg BID RASHEED Administration
--- NOTE | 2025-10-16 14:14 | ESDS_ITS ---
Planned Discharge Date 10/16/25 DS: Providers Provider Date of admission: 10/09/25 23:37 Primary care physician: Physician No Primary/Family Admitting Provider: Griffin Pham MD Attending Provider on Admission: Clemente Jamil MD Consults: 10/10/25 01:45 Referral Physical Therapy Routine Comment: Physician Instructions: 10/10/25 16:31 Consult to Urology Routine Comment: Blood in urine Consulting Provider: Brady Barreto 10/11/25 09:58 Consult to Cardiology Routine Comment: Severe Aortic Stenosis Consulting Provider: Daniel Lockhart Attending Provider on DC: Fredrick Jansen MD Discharging Provider: Fredrick Jansen MD DS: Diagnosis Problem List Completed Was Problem List Reviewed/Reconciled?: Yes Hospital Course Hospital Course Hospital course: 70-year-old female with 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 The patient was admitted for acute hepatic encephalopathy, likely secondary to cirrhosis and urinary tract infection. She was noted to have altered mental status, generalized weakness, and blood in the urine from her Mckenzie catheter. Upon admission, her mental status was altered, and she was AOx1. Treatment with lactulose and rifaximin for hepatic encephalopathy and UTI was started. Her mental status improved significantly, becoming alert and oriented by 10/12/2025. Blood and urine cultures were negative, and her hematuria resolved with the Mckenzie catheter, and the urine cleared to orange with no further blood. A CT abdomen/pelvis revealed cirrhosis, hepatomegaly, ascites, and thickened bladder wall. The patient was evaluated by urology, who recommended outpatient cystoscopy due to bladder wall thickening. Cystoscopy by Dr. Barreto showed bladder diverticulum. Her severe aortic stenosis was asymptomatic and managed conservatively due to her advanced cirrhosis, and no intervention was pursued at this time. 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 #Hyperammonemia #Lactic Acidosis, resolved # Severe Aortic Stenosis # Hx CAD s/p stent, over 10 years ago # Gross Hematuria, resolved # Bladder wall thickeing # Seizure Disorder # Hypothyroidism # Pancytopenia # Iron Deficiency Anemia # Colonic diverticulosis # GERD Discharge Instructions: Reason for hospitalization: Confusion from liver disease (hepatic encephalopathy) and blood in urine Urine: Blood resolved; follow up with outpatient urology Medications: Take all medications exactly as prescribed Lactulose: Take 20 g three times daily; goal 2?3 bowel movements per day Rifaximin: Continue 550 mg twice daily Seizure meds: Continue Keppra and lacosamide as prescribed Thyroid medication: Continue levothyroxine 100 mcg daily Diet: Low-sodium diet Activity: As tolerated Follow-up: -Urology with Dr Barreto for cystoscopy -Primary care within 1 week -Cardiology and hepatology outpatient as scheduled Return to ER if: Confusion, fever, worsening weakness, black or bloody urine /stool, dizziness, chest pain, or shortness of breath Status at Discharge Overall status at discharge: patient is progressing back to baseline Time Spent with Patient Time attestation: Total time spent providing and/or coordinating discharge services: 38 minutes Time spent: Greater than 30 minutes Home Health Home Health Referral Orders: 10/14/25 17:31 Home Health Referral Routine Reason For Exam: PT Home-Bound The patient must either because of illness or injury, need the aid of supportive devices such as crutches, canes, wheelchairs, and walkers; the use of special transportation; or the assistance of another person in order to leave their place of residence; OR have a condition such that leaving his or her home is medically contraindicated. In addition, the patient also meets the following criteria: patient is normally unable to leave the home and leaving home requires considerable taxing effort. Addendum to Home Health Certification Practitioner's Certification: I certify that the patient has been under my care in the hospital and the care of attending physician (see below). We had a [id number]-[id number]-[id number] encounter on (see date below). My clinical findings indicate that the patient is home bound per the above criteria and the Home Health Services noted in these orders are medically necessary. The primary reason for the goiw-nz-[id number] encounter is related to the fact that the patient requires home health services. Date Certifying Hcoy-ld-Xikf Physician Encounter: 10/09/25 Physician's Name who will Assume Oversight for Services: Yuval Bush BENDING MACHINE OPERATOR - Community Resources: No PT to Evaluate: Yes PT to evaluate and provide a treatmnet plan to increase patient's mobility and strength. Wound Care: No IV Therapy: No RN Safety Evaluation: Yes RN to evaluate and create a plan of care that will produce positive outcomes. Palliative Treatment: No Palliative treatment and evaluate the need for hospice. Home Health Aide - Personal Care: No Home Health Aide to assist with any ADL's. Exam Vital Signs Temp Pulse Resp BP Pulse Ox O2 Del Method O2 Flow Rate 97.4 F 68 18 111/53 L 99 Room Air 2 10/16/25 12:00 10/16/25 13:31 10/16/25 12:21 10/16/25 13:31 10/16/25 12:00 10/16/25 12:00 10/15/25 14:43 Narrative Exam General: No acute distress, poorly nourished, muscle wasting noted, AAO x3, Elderly, Frail Eye: Normal conjunctiva, no scleral icterus HENT: Normocephalic, atraumatic, hearing intact to conversation at normal volume, moist oral mucosa Lungs: Non-labored respirations, symmetric chest rise, Clear to auscultate bilaterally, No wheezing, rhonchi, crackles Heart: Peripheral pulses intact bilaterally, Regular Rate and Rhythm. Harsh systolic murmur 6/6 aortic region, bounding carotid pulse. Abdomen: Soft, non-tender, non-distended, no palpable masses Musculoskeletal: Normal range of motion and strength, No cyanosis or edema, No visible joint swelling Skin: Skin is warm, dry, no rashes or lesions. Psychiatric: Cooperative, appropriate mood and affect, Awake and alert, not agitated Neuro: Cranial nerves II-XII grossly intact. Strength 5/5 throughout. Sensations intact to light touch. Discharge Plan Plan Patient Disposition: Xfer Skilled Nsg Fac (SNF) Disposition Comment: Nena Rosales Patient condition on transfer: Stable Care Plan Goals: Discharge Instructions: Reason for hospitalization: Confusion from liver disease (hepatic encephalopathy) and blood in urine Urine: Blood resolved; follow up with urology for outpatient cystoscopy Medications: Take all medications exactly as prescribed Lactulose: Take 20 g three times daily; goal 2?3 bowel movements per day Rifaximin: Continue 550 mg twice daily Seizure meds: Continue Keppra and lacosamide as prescribed Thyroid medication: Continue levothyroxine 100 mcg daily Diet: Low-sodium diet Activity: As tolerated Skin Care: Apply over the counter zinc cream to buttocks, julio area and gluteal twice a day and as needed for incontinences. Goal is to keep skin clean and dry. Avoid using briefs. Avoid sitting in once position for extended periods of time to prevent bed sores Follow-up: -Urology with Dr Barreto -Primary care within 1 week -Cardiology and hepatology outpatient as scheduled - Please repeat CBC in one week to check hemoglobin level, please forward results to your PCP. Return to ER if: Confusion, fever, worsening weakness, black or bloody urine/stool, dizziness, chest pain, or shortness of breath Prescriptions/Referrals Prescriptions/Med Rec: Continued bisacodyl [Dulcolax (bisacodyl)] 10 mg suppository 10 mg NJ QDAY PRN (Reason: constipation) pramipexole 0.5 mg tablet 0.5 mg PO QDAY magnesium hydroxide [Milk of Magnesia] 400 mg/5 mL suspension 400 mg PO .COMPLEX PRN (Reason: constipation) Rx Instructions: 400 mg orally Give if patient has no bowel movement for 3 days. PRN; pantoprazole [Protonix] 40 mg tablet,delayed release (DR/EC) 40 mg PO QDAY furosemide [Lasix] 20 mg tablet 20 mg PO .COMPLEX Rx Instructions: 20 mg orally Monday, Monday, Monday; levetiracetam [Keppra] 1,000 mg tablet 1,000 mg PO BID lacosamide 100 mg tablet 100 mg PO BID rifaximin 550 mg tablet 550 mg PO BID sodium phosphates [Fleet Enema] See Rx Instructions NJ .COMPLEX PRN (Reason: constipation) Rx Instructions: 1 dose rectally Inset 1 dose rectally every 72 hours as needed for constipation. To be administered if dulcolax ineffective. PRN; Changed midodrine 10 mg tablet 10 mg PO BID 30 Days Qty: 60 0RF Rx Instructions: do not give last dose of day after 6PM or within 4 hrs of bedtime lactulose 10 gram/15 mL solution 20 g PO TID 30 Days Qty: 2700 0RF levothyroxine 75 mcg capsule 10 mcg PO QDAY Qty: 30 0RF Referrals: Brady Barreto MD [Physician, Urology] Yuval Bush MD [Referring Provider] Outpatient Orders (i.e. Home Health, Labs, Imaging): CBC (Routine) Location: None Selected Ordered By: Kim Hernandez Patient/Caregiver Discharge Instructions Education Materials: Zinc Oxide cream, ointment, paste, Treating Thyroid Problems, Treating Cirrhosis, Hematuria: Possible Causes, Preventing Pressure Sores, Bowel Movements and Diaper Rash, ED Cirrhosis Print Language: Georgian Stand Alone Forms: [employer] Award Info., Patient Portal Info Letter Discharge Order Discharge Orders: Discharge (Routine); Ordered 10/16/25 Ordered By: Mynor Anthony Quality Discharge Quality Measures VTE prophylaxis MD Attestestation MD Attestation I have seen and examined the patient. I was physically present for the jaffe portions of the services provided including history, physical exam, diagnosis, treatment plans and orders. I agree with assessment and plan of care as documented by residents. Even though this this note was carefully revised there may still be minor errors in job foreman due to voice recognition software. Alyce Villareal MD
--- NOTE | 2025-10-16 14:41 | PC.SS ---
SS attempted to setup gurney transport with Adrienne from [facility] [employer] but was unsuccessful. Adrienne from [facility] explained pt is possibly requiring a PCS Form for transport and placed pt on hold for 18 minutes then disconnected the call. SS has contacted Lenny from [employer] [phone] who explained possible transportation for 5pm to [facility]. Lenny will contact SS once he has secured transport.
--- NOTE | 2025-10-16 15:12 | PC.NURSE ---
Patient going to discharge with a sandi PRITCHARD are aware.
--- NOTE | 2025-10-16 17:59 | PC.NURSE ---
gave report to amy at [facility] [place]
== END 2025-10-16 18:11 | disposition skilled nursing facility (03) | DRG 442 ==
LOC: SERX 23:18 → SERHOLD 10-10 00:28 → S3SX 10-10 01:37
PROVIDERS: Student in an Organized Health Care Education/Training Program; Urology; Admitting Provider Student in an Organized Health Care Education/Training Program; Emergency Provider Emergency Medicine; Visit Provider Internal Medicine
PROC: 0T7B8ZZ Dilation of Bladder, Via Natural or Artificial Opening Endoscopic (ICD-10-PCS; principal; 2025-10-15 14:00)
DX: K76.82 Hepatic encephalopathy (principal); D61.818 Other pancytopenia; E87.20 Acidosis, unspecified; N39.0 Urinary tract infection, site not specified; R18.8 Other ascites; E46 Unspecified protein-calorie malnutrition; K21.9 Gastro-esophageal reflux disease without esophagitis; K74.60 Unspecified cirrhosis of liver; I25.10 Atherosclerotic heart disease of native coronary artery without angina pectoris; I11.0 Hypertensive heart disease with heart failure; E03.9 Hypothyroidism, unspecified; R56.9 Unspecified convulsions; K76.0 Fatty (change of) liver, not elsewhere classified; G40.909 Epilepsy, unspecified, not intractable, without status epilepticus; D50.9 Iron deficiency anemia, unspecified; I50.9 Heart failure, unspecified; I27.21 Secondary pulmonary arterial hypertension; R31.0 Gross hematuria; I35.0 Nonrheumatic aortic (valve) stenosis; I37.1 Nonrheumatic pulmonary valve insufficiency; N32.3 Diverticulum of bladder; K57.30 Diverticulosis of large intestine without perforation or abscess without bleeding; Z66 Do not resuscitate; Z79.890 Hormone replacement therapy; Z79.899 Other long term (current) drug therapy; Z95.5 Presence of coronary angioplasty implant and graft
CPT/HCPCS: 36415; 51702; 70450; 71045; 71250; 74176; 80053; 80074; 80307; 80320; 81001; 82010; 82140; 82248; 82607; 82746; 82803; 83036; 83540; 83550; 83605; 83690; 83735; 83880; 84100; 84145; 84439; 84443; 84481; 84484; 85014; 85018; 85025; 85610; 85652; 85730; 86140; 86850; 86900; 86901; 86923; 87040; 87081; 87086; 93005; 93306; 96361; 96365; 96375; 97162; 99284; A4217; A4314; A4649; C9254; J0696; J1450; J1953; J2250; J2371; J2405; J2470; J2704; J2765; J3010; J3475; J3490; J7050; J7120; P9016; A9270; G0480